=== PATIENT | male | born 2000 | race Two or more races ===

== ENCOUNTER 2021-06-20 08:55 | Outpatient (REF) | payer OTHER, SELFPAY | END 2021-06-20 08:56 | disposition home or self-care (01) | LOC: HO.LAB 08:55 | PROVIDERS: Visit Provider Internal Medicine | DX: Z20.822 Contact with and (suspected) exposure to COVID-19 (principal) | CPT/HCPCS: C9803; U0003; U0005 ==

== ENCOUNTER 2023-03-29 08:41 | Emergency (ER) | payer OTHER, SELFPAY ==
[2023-03-29 08:44] VITALS: BP 98/53; PULSE 115; RESP 18; TEMP 36.7; O2SAT 96; BMI 19.2
[2023-03-29 09:03] VITALS: BP 112/69; PULSE 105; RESP 16; TEMP 37.7; O2SAT 95
[2023-03-29 09:53] LABS: Alanine Aminotransferase 7 U/L (0-40); Albumin Level 4.2 g/dL (3.5-5.0); Alkaline Phosphatase 73 U/L (39-117); Anion Gap 12 (12-20); Aspartate Amino Transferase 17 U/L (5-37); Bilirubin Total 1.3 mg/dL (0.0-1.0); Blood Urea Nitrogen 8 mg/dL (9-16); Calcium 9.6 mg/dL (8.4-10.2); Carbon Dioxide 24 mmol/L (22-29); Chloride 104 mmol/L (96-108); Creatinine Clr Calc Pharmacy 122.3; Estimated Glomerular Filt Rate > 60; Glucose Random 111 mg/dL (60-115); Potassium 3.8 mmol/L (3.3-5.1); Sodium 136 mmol/L (135-145)
[2023-03-29 10:44] VITALS: BP 103/61; PULSE 99; RESP 18; TEMP 37.6; O2SAT 100
--- NOTE | 2023-03-29 11:04 | ED.GENADULT ---
HPI - General Adult General Chief complaint: General Medical Stated complaint: Fever/Sore throat/Lower back pain Time Seen by Provider: 03/29/23 08:58 Source: patient and family Mode of arrival: ambulatory Limitations: no limitations History of Present Illness HPI narrative: 22-year-old male presents with sore throat. Symptoms started yesterday. He has had fever as high as 104. He has generalized myalgias, some slight abdominal discomfort. No nausea vomiting. Symptoms are severe. He has been tolerating oral intake but it has been painful to swallow. He has had no cough or runny nose. Pain that he does experience does not radiate. Patient describes the pain as sharp and burning in sensation. Patient denies any sick contacts. Related Data Previous Rx's Medication Instructions Recorded acetaminophen 500 mg capsule 1,000 mg PO Q6H PRN fever or pain 03/29/23 #20 caps amoxicillin 875 mg tablet 875 mg PO BID #10 tabs 03/29/23 ibuprofen 800 mg tablet 800 mg PO Q8H PRN pain #14 tabs 03/29/23 Allergies Allergy/AdvReac Type Severity Reaction Status Date / Time No Known Allergies Allergy Verified 03/29/23 08:58 Review of Systems Review of Systems: CONSTITUTIONAL: Denies weight loss, +fever and chills. HEENT: Denies changes in vision and hearing. RESPIRATORY: Denies SOB and cough. CV: Denies palpitations no CP. GI: + abdominal pain,- nausea, vomiting and diarrhea. : Denies dysuria and urinary frequency. MSK: Denies myalgia and joint pain. SKIN: Denies rash and pruritus. NEUROLOGICAL: Denies headache and syncope. PSYCHIATRIC: Denies recent changes in mood. Denies anxiety and depression. All other ROS are negative unless in HPI [facility] Social History Social History Alcohol intake: current Alcohol intake frequency: a few times a month Smoked in Last 30 Days: No Use of substances other than those prescribed or required for medical reasons: No Advance Directives: No Advance Directives Information Provided: No Physical Exam ED Vital Signs: Vital Signs - 24 hr 03/29/23 08:44 03/29/23 09:03 03/29/23 10:44 Temperature 98.1 F 99.9 F 99.6 F Pulse Rate 115 H 105 H 99 Respiratory Rate 18 16 18 Blood Pressure 98/53 L 112/69 103/61 Pulse Oximetry 96 95 100 Oxygen Delivery Method Room Air Room Air Room Air BMI result Body Mass Index 19.2 GEN: Well developed, no acute distress, alert, oriented HEENT: Normocephalic, atraumatic, normal external ears, nose appears normal, bilateral tonsillar enlargement, no asymmetry, no uvular deviation or uvulitis, white patchy exudates Eyes: Normal to appearance Neck: Supple, + lymphadenopathy Respiratory: Talks in complete sentences, no respiratory distress, clear to auscultation bilaterally Cardiovascular: Regular rate and rhythm, no murmurs rubs or gallops Abdomen: Soft, nontender, nondistended, no guarding, no rebound Back: No CVA tenderness Extremities: No clubbing cyanosis or edema Neurologic: No focal neurologic deficits, cranial nerves 2-12 intact, strength is 5/5 bilaterally Skin: No rash Course Course Course Narrative: 22-year-old male presents with sore throat, tachycardia, febrile illness as an outpatient, no inpatient documented fever. Patient has tonsillitis/pharyngitis. There is no clinical evidence of peritonsillar abscess. He does have an elevated white blood cell count. Heart rate improved. Blood pressure remains stable. Rapid strep was negative although I still believe this is most likely acute bacterial pharyngitis and amoxicillin be an appropriate treatment. He has received dexamethasone. Feeling significantly improved. He is tolerating oral intake. Will be discharged at this time to return if needed. Medications Administered Discontinued Medications Generic Name Dose Route Start Last Admin Trade Name Freq PRN Reason Stop Dose Admin Dexamethasone Sodium Phosphate 10 mg 03/29/23 09:35 03/29/23 10:43 Dexamethasone Sod Phosphate 10 Mg/Ml Vial IVPUSH 03/29/23 09:36 10 mg ONCE ONE Administration Sodium Chloride 1,769.01 mls @ 1,769.01 mls/hr 03/29/23 08:58 03/29/23 10:42 Ns 30 ml/kg infuse over 1 hr (1769.01 ml) 03/29/23 09:57 1,769.01 mls/hr IV Administration .Q1H STA Ampicillin Sodium/Sulbactam 100 mls @ 200 mls/hr 03/29/23 09:35 03/29/23 10:42 Sodium 3 gm/ Sodium Chloride IV 03/29/23 10:04 200 mls/hr ONCE ONE Administration Ketorolac Tromethamine 15 mg 03/29/23 09:35 03/29/23 10:42 Ketorolac Tromethamine 15 Mg/Ml Vial IVPUSH 03/29/23 09:36 15 mg ONCE ONE Administration Medical Decision Making Medical Decision Making [facility] Narrative: 22-year-old male presents with sore throat with tonsillar enlargement and exudate. He is tachycardic with a low blood pressure but not hypotensive. Differential diagnosis includes strep throat, viral pharyngitis, less likely to be severe sepsis or sepsis. Patient is likely dehydrated, electrolyte abnormality, anemia, viral syndrome Plan: Patient will be given IV fluids, analgesics, steroids, antibiotics. Will check a rapid strep, COVID, additional lab testing to make or chills could most concerned about sepsis or severe sepsis. Admission pending clinical re-evaluation Differential Diagnosis Differential Diagnoses: The differential diagnosis associated with the presentation includes (See above) Acute pharyngitis Admission/Observation Consideration of admission/observation: Escalation of care including admission/observation considered Lab Data [facility] Lab Attestation statement: I reviewed the patient's lab results. 03/29/23 09:27 03/29/23 09:27 Labs: Lab Results 03/29/23 03/29/23 03/29/23 Range/Units 09:26 09:27 09:27 WBC 17.1 H (4.8-10.8) X10*3/uL RBC 5.20 (4.60-5.80) X10*6/uL Hgb 15.1 (14.0-18.0) g/dl Hct 44.5 (42.0-52.0) % MCV 85.6 (80.0-98.0) fL MCH 29.0 (27.0-33.0) pg MCHC 33.9 (31.0-36.0) g/dl RDW 13.1 (11.0-16.0) % Plt Count 198 (160-400) X10*3/uL MPV 11.4 (9.4-12.4) fL Immature Gran % (Auto) 0.8 H (0.0-0.4) % Neut % (Auto) 86.9 H (45-73) % Lymph % (Auto) 5.7 L (20-40) % Woodruff % (Auto) 5.4 (2-11) % Eos % (Auto) 0.8 (0-4) % Baso % (Auto) 0.4 (0-2) % Lymph # (Auto) 1.0 L (1.2-4.9) X10*3/uL Woodruff # (Auto) 0.9 (0.1-1.2) X10*3/uL Eos # (Auto) 0.1 (0.0-0.4) X10*3/uL Baso # (Auto) 0.1 (0.0-0.2) X10*3/uL Abs Immat Gran (auto) 0.13 H (0.00-0.03) X10*3/uL Absolute Neuts (auto) 14.9 H (2.0-8.3) x10*3/uL Absolute Nucleated RBC 0.000 (0.0-0.012) X10*3/uL Nucleated RBC % (auto) 0.0 (0.0-0.2) /100WBC Sodium 136 (135-145) mmol/L Potassium 3.8 (3.3-5.1) mmol/L Chloride 104 (96-108) mmol/L Carbon Dioxide 24 (22-29) mmol/L Anion Gap 12 (12-20) BUN 8 L (9-16) mg/dL Creatinine 0.79 (0.5-1.4) mg/dL Estim Creat Clear Calc 122.3 Estimated GFR > 60 Random Glucose 111 (60-115) mg/dL Lactic Acid 0.9 (0.5-2.0) mmol/L Calcium 9.6 (8.4-10.2) mg/dL Total Bilirubin 1.3 H (0.0-1.0) mg/dL AST 17 (5-37) U/L ALT 7 (0-40) U/L Alkaline Phosphatase 73 (39-117) U/L Total Protein 8.0 (6.5-8.0) g/dL Albumin 4.2 (3.5-5.0) g/dL COVID-19 ([facility]) (Negative) COVID-19 Clin Com Influenza Type A (PREMA) (Negative) Influenza Type B (PREMA) (Negative) Influenza A & B Note S. pyogenes GrpA PREMA (Negative) 03/29/23 03/29/23 03/29/23 Range/Units 09:27 09:27 09:27 WBC (4.8-10.8) X10*3/uL RBC (4.60-5.80) X10*6/uL Hgb (14.0-18.0) g/dl Hct (42.0-52.0) % MCV (80.0-98.0) fL MCH (27.0-33.0) pg MCHC (31.0-36.0) g/dl RDW (11.0-16.0) % Plt Count (160-400) X10*3/uL MPV (9.4-12.4) fL Immature Gran % (Auto) (0.0-0.4) % Neut % (Auto) (45-73) % Lymph % (Auto) (20-40) % Woodruff % (Auto) (2-11) % Eos % (Auto) (0-4) % Baso % (Auto) (0-2) % Lymph # (Auto) (1.2-4.9) X10*3/uL Woodruff # (Auto) (0.1-1.2) X10*3/uL Eos # (Auto) (0.0-0.4) X10*3/uL Baso # (Auto) (0.0-0.2) X10*3/uL Abs Immat Gran (auto) (0.00-0.03) X10*3/uL Absolute Neuts (auto) (2.0-8.3) x10*3/uL Absolute Nucleated RBC (0.0-0.012) X10*3/uL Nucleated RBC % (auto) (0.0-0.2) /100WBC Sodium (135-145) mmol/L Potassium (3.3-5.1) mmol/L Chloride (96-108) mmol/L Carbon Dioxide (22-29) mmol/L Anion Gap (12-20) BUN (9-16) mg/dL Creatinine (0.5-1.4) mg/dL Estim Creat Clear Calc Estimated GFR Random Glucose (60-115) mg/dL Lactic Acid (0.5-2.0) mmol/L Calcium (8.4-10.2) mg/dL Total Bilirubin (0.0-1.0) mg/dL AST (5-37) U/L ALT (0-40) U/L Alkaline Phosphatase (39-117) U/L Total Protein (6.5-8.0) g/dL Albumin (3.5-5.0) g/dL COVID-19 ([facility]) Negative (Negative) COVID-19 Clin Com See Note Influenza Type A ([facility]) Negative (Negative) Influenza Type B (PREMA) Negative (Negative) Influenza A & B Note See Note S. pyogenes GrpA PREMA Negative (Negative) Independent Interpretation I performed an independent interpretation of an: EKG (Sinus tachycardia heart rate [address], [address] elevations depressions, RSR prime noted in V2 but no widened QRS) Tests considered The following testing was considered but not selected: CT soft tissue of the neck, no evidence of peritonsillar abscess on examination Discharge Plan Discharge Clinical Impression: Acute pharyngitis, Tachycardia Patient Disposition: Home, Self-Care Instructions: Pharyngitis (ED), Tachycardia (ED) Prescriptions: New acetaminophen 500 mg capsule 1,000 mg PO Q6H PRN (Reason: fever or pain) Qty: 20 0RF ibuprofen 800 mg tablet 800 mg PO Q8H PRN (Reason: pain) Qty: 14 0RF amoxicillin 875 mg tablet 875 mg PO BID Qty: 10 0RF Stand Alone Forms: Work/School Release
[2023-03-29 12:11] VITALS: BP 114/72; PULSE 107; RESP 13; TEMP 37.2; O2SAT 98
== END 2023-03-29 12:24 | disposition home or self-care (01) ==
PROVIDERS: Emergency Provider Emergency Medicine; PCP Internal Medicine
DX: J02.9 Acute pharyngitis, unspecified (principal); R50.9 Fever, unspecified; M54.50 Low back pain, unspecified; R00.0 Tachycardia, unspecified; Z20.822 Contact with and (suspected) exposure to COVID-19; Z20.828 Contact with and (suspected) exposure to other viral communicable diseases; Z79.899 Other long term (current) drug therapy
CPT/HCPCS: 80053; 83605; 85025; 87040; 87502; 87635; 87651; 93005; 96361; 96374; 96375; 99284; 99285; J0295; J1100; J1885

== ENCOUNTER → 2023-03-29 08:58 | Outpatient (BNV) | payer OTHER, SELFPAY | PROVIDERS: Emergency Provider Emergency Medicine; PCP Internal Medicine; Visit Provider Internal Medicine Cardiovascular Disease | DX: R00.0 Tachycardia, unspecified (principal) | CPT/HCPCS: 93010 ==

== ENCOUNTER 2023-04-01 21:05 | Inpatient (IN) | payer OTHER, SELFPAY ==
--- NOTE | 2023-04-01 | ECG_ITS ---
Test Reason : SEPSIS Blood Pressure : / mmHG Vent. Rate : 108 BPM Atrial Rate : 108 BPM P-R Int : 122 ms QRS Dur : 090 ms QT Int : 300 ms P-R-T Axes : 031 074 076 degrees QTc Int : 402 ms Sinus tachycardia Brugada pattern, type 1 Abnormal ECG When compared with ECG of 29-MAR-2023 09:10, No significant change was found Referred By: Autumn Ramos Electronically Signed By:MATIAS RODRÍGUEZ MD
--- NOTE | ~2023-04-01 | CT_ITS ---
EXAMINATION: CT ANGIOGRAM OF THE CHEST WITH AND WITHOUT CONTRAST (CT PULMONARY ANGIOGRAM FOR PE) CLINICAL INFORMATION: Reason for Exam chest pain COMPARISON: None available. TECHNIQUE: Prior to contrast administration, noncontrast localization images were obtained. Subsequently, multidetector volumetric imaging was performed from the thoracic inlet to below the diaphragms following the administration of 65 mL Omnipaque 350 intravenous contrast. No contrast reaction reported Sagittal, coronal, and MIP oblique sagittal reformatted images were obtained on the CT workstation, uploaded to PACS, and reviewed. This CT examination was performed using dose optimization techniques as appropriate, variously including the following: *Automated exposure control *Adjustment of mA and/or kV according to patient size (this includes techniques or standardized protocols for targeted exams where dose is matched to indication/reason for exam; i.e. extremities or head) *Use of iterative reconstruction technique Total exam dose-length product 191 mGy-cm FINDINGS: QUALITY OF STUDY/CONTRAST BOLUS: Satisfactory. PULMONARY ARTERIES: No pulmonary emboli. THORACIC AORTA: No aneurysm. LUNG: There is relatively mild patchy consolidation in the posterior left lower lobe. Right lung is well-aerated. PLEURA: No pneumothorax. Trace pleural effusions. MEDIASTINUM: The visualized thyroid gland is unremarkable. No discrete adenopathy is seen. Cardiac size is within normal limits; no pericardial effusion. No evidence of septal bowing or right heart strain. CORONARY ARTERY CALCIFICATION: None visualized on this study. CHEST WALL/AXILLA: No axillary or internal mammary lymphadenopathy. OSSEOUS STRUCTURES: No acute or suspicious osseous abnormality. UPPER ABDOMEN: Unremarkable. No reflux of contrast into the hepatic veins to suggest elevated right heart pressures. CT/CT angio chest PE protocol IMPRESSION: 1. No pulmonary embolus identified. 2. Mild patchy consolidation in the posterior left lower lobe, suspicious for pneumonia in the proper clinical setting. 3. Trace pleural effusions. VTE: negative.
--- NOTE | ~2023-04-01 | CT_ITS ---
EXAMINATION: CT SOFT TISSUE NECK WITH CONTRAST CLINICAL INFORMATION: Lemierre syndrome. COMPARISON: None available. TECHNIQUE: Multidetector helical imaging was performed in the axial plane following the administration of 60 mL of Omnipaque 350 intravenous contrast. Multiple axial reformats and coronal/sagittal reconstructions were created the technologist workstation for review. This CT examination was performed using dose optimization techniques as appropriate, variously including the following: *Automated exposure control. *Adjustment of mA and/or kV according to patient size (this includes techniques or standardized protocols for targeted exams where dose is matched to indication/reason for exam; i.e. extremities or head). *Use of iterative reconstruction technique. DLP: 398 mGy-cm FINDINGS: No significant cutaneous thickening. Mild subcutaneous edema within the anterior soft tissues of the neck. No discrete fluid collection within the deep tissues of the neck. The premaxillary, retromaxillary, pterygopalatine fossa, orbital apical, parapharyngeal, and prelaryngeal adipose tissue is maintained. No retropharyngeal collection. Normal appearance of the parotid, submandibular, and thyroid glands. Moderately prominent bilateral level IIa lymph nodes measure up to 1.9 cm. Otherwise, scattered subcentimeter lymph nodes bilaterally, none of which are pathologically enlarged or abnormally enhancing. Moderate heterogeneous enlargement of the adenoid and palatine tonsils bilaterally. Otherwise, normal mucosal contours of the pharynx and larynx without abnormal enhancement. Normal appearance of the hyoid bone, thyroid cartilage, or cartilaginous trachea. The airways remains widely patent. No radiopaque foreign bodies. The atlantooccipital and atlantoaxial articulations remain well aligned. Reversal the normal cervical lordosis centered on C5. Otherwise, there is anatomic alignment of the vertebral bodies and posterior elements. No evidence of acute fracture or subluxation of the cervical spine. The vertebral body heights are maintained. The intervertebral disc spaces are maintained. No evidence of epidural collection. There is no prevertebral soft tissue swelling. Normal opacification of the cervical arterial and venous structures. The visualized portion of the skull base is without significant abnormalities. The visualized paranasal sinuses are clear. The mastoid air cells and middle ear cavities are clear. No demonstrated significant periapical odontogenic disease. CT Upper Chest: The visualized lung apices and upper mediastinum are within normal limits. CT/CT soft tissue neck w IV con IMPRESSION: 1. Moderate heterogeneous enlargement of the adenoids and palatine tonsils bilaterally. Mild subcutaneous edema within the anterior soft tissues of the neck. Mildly prominent bilateral level IIa lymph nodes, likely reactive in nature. 2. No additional focal lesion, collection, pathologically enlarged lymphadenopathy, or abnormal enhancement within the soft tissues of the neck. 3. Normal appearance of the cervical vasculature.
--- NOTE | ~2023-04-01 | CT_ITS ---
EXAMINATION: CT LUMBAR SPINE WITH CONTRAST CLINICAL INFORMATION: Sepsis. Lumbar pain. Discitis. COMPARISON: CT abdomen and pelvis from 04/02/2023. TECHNIQUE: Multidetector helical imaging of the lumbar spine was obtained following the administration of 85 mL of Omnipaque 350 intravenous contrast. Multiple axial reformats and coronal/sagittal reconstructions were created the technologist workstation for review. This CT examination was performed using dose optimization techniques as appropriate, variously including the following: *Automated exposure control. *Adjustment of mA and/or kV according to patient size (this includes techniques or standardized protocols for targeted exams where dose is matched to indication/reason for exam; i.e. extremities or head). *Use of iterative reconstruction technique. DLP: 372 mGy-cm FINDINGS: Minimal degenerative retrolisthesis of L5-S1. Otherwise, normal anatomic alignment. No evidence of acute fracture or traumatic subluxation. The vertebral body heights are maintained. The intervertebral disc spaces are maintained. No suspicious lytic or sclerotic osseous lesions. No abnormal osseous erosions. No evidence of epidural collection. No significant abnormalities of the paraspinal musculature. No abnormal paravertebral collection. Limited evaluation of the intra-abdominal structures without significant abnormalities. The abdominal aorta is of normal contour and caliber. AXIAL SPINAL LEVELS: Normal annular contours. There is no facet joint arthropathy. There is no neural foraminal or spinal canal stenosis. CT/CT lumbar spine w IV con IMPRESSION: 1. No evidence of acute fracture or traumatic subluxation of the lumbar spine. 2. No abnormal osseous erosions. No abnormal paravertebral collection.
--- NOTE | ~2023-04-01 | XR_ITS ---
EXAMINATION: XR CHEST CLINICAL INFORMATION: Pleuritic chest pain COMPARISON: CT angiogram of the chest 04/03/2023 TECHNIQUE: AP upright portable view of the chest was obtained. 0850. FINDINGS: Multiple cardiac leads project over the chest. There is mild retrocardiac streaky opacity consistent with atelectasis and/or pneumonia. No pleural effusion. No significant abnormality is noted involving the heart,, mediastinum, bony thorax or soft tissues. XR/XR chest 1V IMPRESSION: Mild left lower lobe atelectasis and/or pneumonia.
--- NOTE | ~2023-04-01 | CT_ITS ---
EXAMINATION: CT ABDOMEN AND PELVIS WITH CONTRAST CLINICAL INFORMATION: Abdominal pain COMPARISON: None available. TECHNIQUE: Multidetector volumetric images were obtained from the superior aspect of the liver through the pubic symphysis following administration 85 mL of Omnipaque 350 intravenous contrast. Sagittal and coronal reformatted images were obtained on the technologist's workstation. Oral contrast: No This CT examination was performed using dose optimization techniques as appropriate, variously including the following: *Automated exposure control *Adjustment of mA and/or kV according to patient size (this includes techniques or standardized protocols for targeted exams where dose is matched to indication/reason for exam; i.e. extremities or head) *Use of iterative reconstruction technique DLP: 372 mGy-cm FINDINGS: LUNG BASES: The visualized lung bases are unremarkable. LIVER, GALLBLADDER, AND BILIARY TREE: The liver is normal in size, shape, and attenuation. No focal hepatic lesion or biliary ductal dilatation is present. Gallbladder appears partially contracted. PANCREAS: Unremarkable. SPLEEN: Unremarkable. ADRENAL GLANDS: Unremarkable. KIDNEYS AND URETERS: Bilateral nephrograms are symmetric. No hydronephrosis or obstructing calculus identified. BLADDER: Unremarkable. GASTROINTESTINAL TRACT: There is distention of much of the small and large bowel with fluid and gas, without convincing evidence for obstruction, and overall findings are more suggestive of an ileus. Appendix is gas-filled. No free air is seen. Small volume of pelvic free fluid. ABDOMINAL WALL: No significant hernia is appreciated. LYMPH NODES: Normal. VASCULAR: Unremarkable. PELVIC VISCERA: Unremarkable. OSSEOUS STRUCTURES: Unremarkable. CT/CT abdomen pelvis w IV con IMPRESSION: 1. Distention of much of the small and large bowel with fluid and gas, without convincing evidence for obstruction. Overall findings are more suggestive of an ileus. 2. Small volume of pelvic free fluid, which may be reactive.
[2023-04-01 23:07] VITALS: BP 91/52; PULSE 116; RESP 22; TEMP 39.5; O2SAT 98; BMI 19.2
--- NOTE | 2023-04-01 23:25 | ED_ITS ---
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 Related Data Previous Rx's Medication Instructions Recorded acetaminophen 500 mg capsule 1,000 mg PO Q6H PRN fever or pain 03/29/23 #20 caps amoxicillin 875 mg tablet 875 mg PO BID #10 tabs 03/29/23 ibuprofen 800 mg tablet 800 mg PO Q8H PRN pain #14 tabs 03/29/23 Allergies Allergy/AdvReac Type Severity Reaction Status Date / Time No Known Allergies Allergy Verified 03/29/23 08:58 Review of Systems Review of Systems: Pertinent positives and negatives as stated in HPI [facility] Past Medical History Source: nursing notes reviewed Social History Social History Alcohol intake: current Alcohol intake frequency: holidays/special occasions only Smoked in Last 30 Days: No Use of substances other than those prescribed or required for medical reasons: No Advance Directives: No Advance Directives Information Provided: No Physical Exam ED Vital Signs: Vital Signs - 24 hr 04/01/23 23:07 04/01/23 23:53 04/02/23 01:01 Temperature 103.1 F H 103.2 F H 100.8 F H Pulse Rate 116 H 104 H 93 Respiratory Rate 22 H 18 22 H Blood Pressure 91/52 L 120/74 98/47 L Pulse Oximetry 98 99 98 Oxygen Delivery Method Room Air Room Air Room Air 04/02/23 01:18 04/02/23 01:44 04/02/23 01:49 Temperature 98.7 F Pulse Rate 99 88 86 Respiratory Rate 19 19 19 Blood Pressure 107/50 L 103/52 L 99/56 L Pulse Oximetry 97 99 100 Oxygen Delivery Method Room Air Room Air Room Air BMI result Body Mass Index 19.2 VITAL SIGNS: Reviewed. GENERAL: Well developed, well nourished, in no acute distress. HEAD: Normocephalic/atraumatic EYES: PERRLA, EOMI EARS: Ext canals without abnormality, TMs non-bulging and non-erythematous NOSE: Nares patent bilateral OROPHARYNX: There are buccal whitish plaques noted, posterior pharynx with whitish plaques and erythematous without noted tonsillar enlargement/exudates NECK: Supple, no adenopathy LUNGS: Normal breath sounds. No adventitious sounds or accessory muscle use. SpO2<98> CARDIOVASCULAR: Regular rate and rhythm without noted murmurs ABDOMEN: Soft, DIFFUSE TENDERNESS TO PALPATION, non-distended with bowel sounds. MUSCULOSKELETAL: No tenderness, deformities, or effusions noted on gross inspection. EXTREMITIES: No cyanosis, clubbing or edema; PROSTHETIC NOTED TO LEFT LOWER EXTREMITY. SKIN: Inspection of the skin reveals no rashes NEUROLOGIC: Alert and oriented x 4. Strength and sensation to light touch were grossly intact x 4. Medications Administered Discontinued Medications Generic Name Dose Route Start Last Admin Trade Name Freq PRN Reason Stop Dose Admin Acetaminophen 975 mg 04/01/23 23:19 04/01/23 23:33 Acetaminophen 325 Mg Tablet PO 04/01/23 23:20 975 mg ONCE ONE Administration Piperacillin Sod/Tazobactam 50 mls @ 100 mls/hr 04/01/23 23:25 04/02/23 00:25 Sod 3.375 gm/ Sodium Chloride IV 04/01/23 23:54 Infused ONCE ONE Infusion Sodium Chloride 1,769.01 mls @ 1,769.01 mls/hr 04/01/23 23:26 04/02/23 01:44 Ns 30 ml/kg infuse over 1 hr (1769.01 ml) 04/02/23 00:25 Infused IV Infusion .Q1H STA Ibuprofen 400 mg 04/01/23 23:19 04/01/23 23:33 Ibuprofen 400 Mg Tablet PO 04/01/23 23:20 400 mg ONCE ONE Administration Iohexol 85 ml 04/02/23 00:32 04/02/23 00:33 Iohexol 350 Mg/Ml 100 Ml Infus..Btl IV 04/02/23 00:33 85 ml ONCE ONE Administration Medical Decision Making Medical Decision Making [facility] Narrative: 2315: 22-year-old male with history and clinical presentation, DDX: Oral thrush, possible esophagitis Bib[place], sepsis, renal colic, appendicitis, UTI I reviewed all investigations, patient did receive sepsis fluids, antibiotics, as well as Tylenol and ibuprofen. Hematologic studies demonstrate a worsening leukocytosis, and slight bump in bilirubin otherwise chemistries are grossly within normal limits. CT scan negative for acute intra-abdominal findings other than suggestion of ileus with distension of small and large bowel of unknown etiology. Urinalysis is pending and will repeat rapid strep and mono screen. 0226: I discussed the case with the inpatient hospitalist who accepts admission. Differential Diagnosis Differential Diagnoses: The differential diagnosis associated with the presentation includes Please see the discussion above Admission/Observation Consideration of admission/observation: Escalation of care including admi ssion/observation considered Consult Healthcare Provider Management of the patient was discussed with: Hospitalist Please see the discussion above Lab Data [facility] Lab Attestation statement: I reviewed the patient's lab results. Please see the discussion above 04/01/23 23:25 04/01/23 23:25 Labs: Lab Results 04/01/23 04/01/23 04/01/23 Range/Units 23:25 23:25 23:50 WBC 23.4 H (4.8-10.8) X10*3/uL RBC 5.05 (4.60-5.80) X10*6/uL Hgb 14.3 (14.0-18.0) g/dl Hct 42.2 (42.0-52.0) % MCV 83.6 (80.0-98.0) fL MCH 28.3 (27.0-33.0) pg MCHC 33.9 (31.0-36.0) g/dl RDW 13.0 (11.0-16.0) % Plt Count 235 (160-400) X10*3/uL MPV 10.6 (9.4-12.4) fL Absolute Nucleated RBC 0.000 (0.0-0.012) X10*3/uL Nucleated RBC % (auto) 0.0 (0.0-0.2) /100WBC Sodium 133 L (135-145) mmol/L Potassium 3.5 (3.3-5.1) mmol/L Chloride 99 (96-108) mmol/L Carbon Dioxide 25 (22-29) mmol/L Anion Gap 13 (12-20) BUN 12 (9-16) mg/dL Creatinine 1.19 (0.5-1.4) mg/dL Estim Creat Clear Calc 81.2 Estimated GFR > 60 Random Glucose 126 H (60-115) mg/dL Lactic Acid 1.0 (0.5-2.0) mmol/L Calcium 9.1 (8.4-10.2) mg/dL Total Bilirubin 1.2 H (0.0-1.0) mg/dL AST 14 (5-37) U/L ALT 5 (0-40) U/L Alkaline Phosphatase 65 (39-117) U/L Total Protein 8.3 H (6.5-8.0) g/dL Albumin 4.3 (3.5-5.0) g/dL Independent Interpretation I performed an independent interpretation of an: EKG Interpretation: Sinus tachycardia, HR-108, no STEMI, OH/QRS/QTC is within normal limits. Brugada Pattern Type I Radiology Impression Radiologist Impression: No appendicitis, otherwise my interpretation is in agreement with radiology's impression. External Record Review External record reviewed: Outpatient record and Prior outpatient labs Critical Care Time Critical Care Time Critical Care Time: Yes Total Critical Care Time: 30 Attestation: I personally attest to this time spent taking care of the patient. Discharge Plan Discharge Clinical Impression: Severe sepsis, Fever of unknown origin, Oral thrush, Ileus Patient Disposition: Admitted As Inpatient Prescriptions: No Action acetaminophen 500 mg capsule 1,000 mg PO Q6H PRN (Reason: fever or pain) Qty: 20 0RF ibuprofen 800 mg tablet 800 mg PO Q8H PRN (Reason: pain) Qty: 14 0RF amoxicillin 875 mg tablet 875 mg PO BID Qty: 10 0RF
[2023-04-01 23:32] LABS: Hematocrit 42.2 % (42.0-52.0); Hemoglobin 14.3 g/dl (14.0-18.0); Mean Corpuscular HGB Conc 33.9 g/dl (31.0-36.0); Mean Corpuscular Hemoglobin 28.3 pg (27.0-33.0); Mean Corpuscular Volume 83.6 fL (80.0-98.0); Mean Platelet Volume 10.6 fL (9.4-12.4); Platelet Count 235 X10*3/uL (160-400); Red Blood Count 5.05 X10*6/uL (4.60-5.80); White Blood Count 23.4 X10*3/uL (4.8-10.8)
[2023-04-01] MEDS: Ibuprofen 400 MG TABLET PO (23:33)
[2023-04-01] MEDS: Acetaminophen 325 MG TABLET 975 MG PO (23:33)
[2023-04-01] MEDS: 0.9 % Sodium Chloride 1,769.01 ML 1769.01 ML IV (23:38)
[2023-04-01 23:49] LABS: Alanine Aminotransferase 5 U/L (0-40); Albumin Level 4.3 g/dL (3.5-5.0); Alkaline Phosphatase 65 U/L (39-117); Anion Gap 13 (12-20); Aspartate Amino Transferase 14 U/L (5-37); Bilirubin Total 1.2 mg/dL (0.0-1.0); Blood Urea Nitrogen 12 mg/dL (9-16); Calcium 9.1 mg/dL (8.4-10.2); Carbon Dioxide 25 mmol/L (22-29); Chloride 99 mmol/L (96-108); Creatinine Clr Calc Pharmacy 81.2; Estimated Glomerular Filt Rate > 60; Glucose Random 126 mg/dL (60-115); Potassium 3.5 mmol/L (3.3-5.1); Sodium 133 mmol/L (135-145); Total Protein 8.3 g/dL (6.5-8.0)
[2023-04-01] MEDS: Piperacillin Sodium/Tazobactam 3.375 GM in 0.9 % Sodium Chloride 50 ML IV (23:50)
[2023-04-01 23:53] VITALS: BP 120/74; PULSE 104; RESP 18; TEMP 39.6; O2SAT 99
[2023-04-02] VITALS (8 sets, daily range): BP systolic 94–115; BP diastolic 47–70; PULSE 81–106; RESP 18–25; TEMP 36.8–38.2; O2SAT 97–100
--- NOTE | 2023-04-02 | ECG_ITS ---
Test Reason : CHEST PAIN Blood Pressure : / mmHG Vent. Rate : 097 BPM Atrial Rate : 097 BPM P-R Int : 116 ms QRS Dur : 094 ms QT Int : 316 ms P-R-T Axes : 061 076 071 degrees QTc Int : 401 ms Normal sinus rhythm Incomplete right bundle branch block When compared with ECG of 01-APR-2023 23:33, Brugada pattern, type 1 is no longer Present Referred By: Autumn Ramos Electronically Signed By:MATIAS RODRÍGUEZ MD
[2023-04-02] MEDS: iohexoL 350 MG/ML 100 ML INFUS..BTL 85 ML IV (00:33)
--- NOTE | 2023-04-02 01:16 | MHC.EDTECH ---
Vitals taken with an oral temp of 100.8, RN was made aware. Patient voided 400cc of yellow urine in the urinal. Collected a UACC and sent to lab. Call leblanc within reach
[2023-04-02 02:23] LABS: Appearance Urine Clear; Color Urine Yellow; Glucose Urine UA Negative (Negative); Leukocyte Esterase Urine Negative (Negative); Nitrite Urine Negative (Negative); Specific Gravity - Urine 1.025 (1.005-1.025); Urine Blood Negative (Negative); Urine Ketones Negative (Negative); Urine Protein Negative (Neg-Trace)
--- NOTE | 2023-04-02 02:49 | MHC.EDTECH ---
Rounding complete,vitals taken bp is 94/51,RN is made aware. Patient voided 600cc of clear yellow urine in the urinal. Call leblanc within reach
[2023-04-02 03:00] LABS: IDNOW Serial# 6674DD1D; Strep A Nucleic Acid Negative (Negative)
[2023-04-02 03:13] LABS: Monotest Negative (Negative)
[2023-04-02 03:56] LABS: Basophils Absolute Auto 0.1 X10*3/uL (0.0-0.2); Basophils Percent Auto 0.3 % (0-2); Imm Gran Abs Auto 0.29 X10*3/uL (0.00-0.03); Imm Gran Pct Auto 1.3 % (0.0-0.4); Lymphocytes Absolute Auto 1.6 X10*3/uL (1.2-4.9); Lymphocytes Percent Auto 6.8 % (20-40); MANUAL DIFF FLAG SCAN; Monocytes Percent Auto 8.8 % (2-11); Neutrophils Percent Auto 82.8 % (45-73); SCAN SMEAR FLAG 1
[2023-04-02] MEDS: vancomycin HCL 1,500 MG in 0.9 % Sodium Chloride 500 ML 333.33 MG IV (04:05)
[2023-04-02 04:17] LABS: SLIDE REVIEW VERIFIED
[2023-04-02 04:56] LABS: HIV AB/AG Nonreactive (Nonreactive); HIV Num 1 0.07 S/CO (0.00-0.99)
--- NOTE | 2023-04-02 05:53 | PM.IMHP ---
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 Patient's girlfriend at bedside speaks Armenian, patient is Armenian-speaking and the any history is obtained mostly from his girlfriend at bedside. Different states that on Wednesday he came home from work complaining of sore throat and fever. Girlfriend has been treating it with Tylenol and ibuprofen, patient was seen in the ED on Wednesday for persistent fever, strep throat was negative, patient was given amoxicillin sent home. He returns today for persistent fever, weakness, generalized body aches. Patient denies any cough, no sputum production, some nausea no vomiting, no abdominal pain, had diarrhea 2 days prior after starting antibiotics but has not had a bowel movement since yesterday denies any abdominal pain, no urinary symptoms and no lower extremity edema. No skin lesions. On arrival to the ED today patient had a fever of 103.1, slightly tachycardic, Labs are significant for WBC count of 23.4, sodium of133, UA negative, HIV nonreactive, mono screen negative, strep negative abdomen pelvic CT shows possible ileus patient will be admitted for further management Review of Systems Review of Systems: Yes all other systems are reviewed and are negative ON LICENSE OF [facility] Medical History No pertinent past medical history Surgical History No pertinent past surgical history Social History Alcohol intake: current Alcohol intake frequency: holidays/special occasions only Patient Tobacco Use Status: Never used Tobacco Smoked in Last 30 Days: No Use of substances other than those prescribed or required for medical reasons: No Advance Directives: No Advance Directives Information Provided: No Nutrition Risks: No Nutritional Risk Meds Allergies Allergy/AdvReac Type Severity Reaction Status Date / Time No Known Allergies Allergy Verified 03/29/23 08:58 Active Medications: Current Medications Acetaminophen (Acetaminophen 325 Mg Tablet) 650 mg PO Q6H PRN PRN Reason: Pain, Mild (Pain Scale 1-3) Piperacillin Sod/Tazobactam (Sod 3.375 gm/ Sodium Chloride) 50 mls @ 100 mls/hr IV Q6H MARGARITA Ondansetron HCl (Ondansetron Hcl 4 Mg/2 Ml Vial) 4 mg IVPUSH Q8H PRN PRN Reason: Nausea and Vomiting Pharmacy Consult (Consult Rx Vancomycin Dosing) 1 each MISCELLANE DAILY PRN PRN Reason: Consult order Sodium Chloride (0.9 % Sodium Chloride Flush 3 Ml Syringe) 3 ml IVFLUSH QSHIFT MARGARITA Physical Exam Vital Signs and Narrative: Vital Signs: Last Vital Signs Temp 98.3 F 04/02/23 03:50 Pulse 81 04/02/23 03:50 Resp 18 04/02/23 03:50 BP 96/59 L 04/02/23 03:50 Pulse Ox 99 04/02/23 03:50 O2 Del Method Room Air 04/02/23 03:50 BMI result Body Mass Index 19.2 Const: General: cooperative and no acute distress Orientation/consciousness: patient oriented x3 Eyes: General: appearance normal, both eyes and all related structures Resp: Effort & Inspection: normal respiratory effort Auscultation: clear to auscultation bilaterally Cardio: Rate: regular rate Rhythm: regular rhythm GI: Palpation (GI): Soft to palpation Auscultation: normal bowel sounds Skin: General skin exam: no rashes or lesions noted Neuro: General: patient oriented x3 Cognition (Neuro): normal cognition Extrem: Other: left leg prosthesis Results Labs 04/01/23 23:25 04/01/23 23:25 Labs: Laboratory Results - last 24 hr 04/01/23 04/01/23 04/01/23 23:25 23:25 23:50 MCV 83.6 MCH 28.3 MCHC 33.9 RDW 13.0 Plt Count 235 MPV 10.6 Immature Gran % (Auto) 1.3 H Neut % (Auto) 82.8 H Lymph % (Auto) 6.8 L Haakon % (Auto) 8.8 Eos % (Auto) 0.0 Baso % (Auto) 0.3 Lymph # (Auto) 1.6 Haakon # (Auto) 2.0 H Eos # (Auto) 0.0 Baso # (Auto) 0.1 Abs Immat Gran (auto) 0.29 H Absolute Neuts (auto) 19.0 H Absolute Nucleated RBC 0.000 Nucleated RBC % (auto) 0.0 Smear Tech's Comments VERIFIED Anion Gap 13 Estim Creat Clear Calc 81.2 Estimated GFR > 60 Random Glucose 126 H Lactic Acid 1.0 Calcium 9.1 Total Bilirubin 1.2 H AST 14 ALT 5 Alkaline Phosphatase 65 Total Protein 8.3 H Albumin 4.3 Urine Color Urine Appearance Urine pH Ur Specific [place] Urine Protein Urine Glucose (UA) Urine Ketones Urine Blood Urine Nitrite Ur Leukocyte Esterase Monoscreen HIV 1&2 Ab/P24 Ag 4thGn S. pyogenes GrpA PREMA 04/02/23 04/02/23 04/02/23 01:18 02:32 02:32 MCV MCH MCHC RDW Plt Count MPV Immature Gran % (Auto) Neut % (Auto) Lymph % (Auto) Haakon % (Auto) Eos % (Auto) Baso % (Auto) Lymph # (Auto) Haakon # (Auto) Eos # (Auto) Baso # (Auto) Abs Immat Gran (auto) Absolute Neuts (auto) Absolute Nucleated RBC Nucleated RBC % (auto) Smear Tech's Comments Anion Gap Estim Creat Clear Calc Estimated GFR Random Glucose Lactic Acid Calcium Total Bilirubin AST ALT Alkaline Phosphatase Total Protein Albumin Urine Color Yellow Urine Appearance Clear Urine pH 6.0 Ur Specific [place] 1.025 Urine Protein Negative Urine Glucose (UA) Negative Urine Ketones Negative Urine Blood Negative Urine Nitrite Negative Ur Leukocyte Esterase Negative Monoscreen Negative HIV 1&2 Ab/P24 Ag 4thGn S. pyogenes GrpA PREMA Negative 04/02/23 02:32 MCV MCH MCHC RDW Plt Count MPV Immature Gran % (Auto) Neut % (Auto) Lymph % (Auto) [place] % (Auto) Eos % (Auto) Baso % (Auto) Lymph # (Auto) Ha[place]on # (Auto) Eos # (Auto) Baso # (Auto) Abs Immat Gran (auto) Absolute Neuts (auto) Absolute Nucleated RBC Nucleated RBC % (auto) Smear Tech's Comments Anion Gap Estim Creat Clear Calc Estimated GFR Random Glucose Lactic Acid Calcium Total Bilirubin AST ALT Alkaline Phosphatase Total Protein Albumin Urine Color Urine Appearance Urine pH Ur Specific [place] Urine Protein Urine Glucose (UA) Urine Ketones Urine Blood Urine Nitrite Ur Leukocyte Esterase Monoscreen HIV 1&2 Ab/P24 Ag 4thGn Nonreactive S. pyogenes GrpA PREMA Imaging Radiologist's Impressions: Impressions Abdomen/Pelvis CT 04/02/23 00:37 IMPRESSION: 1. Distention of much of the small and large bowel with fluid and gas, without convincing evidence for obstruction. Overall findings are more suggestive of an ileus. 2. Small volume of pelvic free fluid, which may be reactive. 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 UA negative, imaging negative for acute infection - broad-spectrum IV antibiotics - follow cultures - and analgesics p.r.n. - infectious disease consulted # ileus - abdomen is soft, nontender, found - will make patient NPO for bowel rest DVT prophylaxis: Early ambulation Time Spent With Patient Time: Total time managing care of this patient today ____ minutes. Quality Stroke Does the patient have a stroke diagnosis?: No VTE Prior VTE?: No VTE Risk Level:: Medical - low VTE Device Contraindication: Treatment Not Indicated VTE Drug Contraindication: Treatment Not Indicated
[2023-04-02] MEDS: Piperacillin Sodium/Tazobactam 3.375 GM in 0.9 % Sodium Chloride 50 ML IV ×2 (05:56→10:51)
[2023-04-02] MEDS: diphenhydrAMINE HCL 25 MG CAPSULE PO (06:04)
[2023-04-02] MEDS: Acetaminophen 325 MG TABLET 650 MG PO (06:07)
--- NOTE | 2023-04-02 06:17 | PC.NURSE ---
Upon ABX completion, Pt reported some itching to neck area, redness noted all over neck, Dr. Zimmerman notified, new order given as documented.
[2023-04-02 06:46] LABS: Basophils Absolute Auto 0.1 X10*3/uL (0.0-0.2); Basophils Percent Auto 0.3 % (0-2); Hematocrit 42.7 % (42.0-52.0); Hemoglobin 14.2 g/dl (14.0-18.0); Imm Gran Abs Auto 0.63 X10*3/uL (0.00-0.03); Imm Gran Pct Auto 2.7 % (0.0-0.4); Lymphocytes Absolute Auto 1.5 X10*3/uL (1.2-4.9); Lymphocytes Percent Auto 6.3 % (20-40); MANUAL DIFF FLAG SCAN; Mean Corpuscular HGB Conc 33.3 g/dl (31.0-36.0); Mean Corpuscular Hemoglobin 28.3 pg (27.0-33.0); Mean Corpuscular Volume 85.1 fL (80.0-98.0); Mean Platelet Volume 11.1 fL (9.4-12.4); Monocytes Absolute Auto 1.6 X10*3/uL (0.1-1.2); Monocytes Percent Auto 6.8 % (2-11); Neutrophils Absolute Auto 19.4 x10*3/uL (2.0-8.3); Neutrophils Percent Auto 83.9 % (45-73); Platelet Count 206 X10*3/uL (160-400); Red Blood Count 5.02 X10*6/uL (4.60-5.80); Red Cell Distribution Width 13.2 % (11.0-16.0); SCAN SMEAR FLAG 1; White Blood Count 23.2 X10*3/uL (4.8-10.8)
--- NOTE | 2023-04-02 07:00 | CA_ITS ---
Transthoracic Echocardiogram Patient (Last, First, Middle): Edwin Wasserman C Gender: Male Date of : 2000 Age: 22 Procedure Date: 04/02/2023 Procedure Type: Transthoracic Echocardiogram Location: ER Height: 175.26 cm Weight: 58.97 kg BSA: 1.72 m2 Heart Rate: 102 bpm BP: 107 / 67 mmHg Steel Layer: CATAL[place] Referring MD: James Wetzel MD Supervisor Industrial Garment: Javier Hendricks MD Symptoms: sepsis Study Quality: Adequate ECG Rhythm: Tachycardia Conclusions: - Essentially normal study without any clear evidence of vegetations on this study Findings Left Ventricle Normal left ventricular size, thickness, and systolic function. The visually estimated ejection fraction is between 60-65%. Spectral Doppler is indicative of a normal filling pattern. Peak GLS is -17.9%, borderline normal. Right Ventricle Normal right ventricular cavity size and systolic function. Atria Both atria are likely dilated. There is no evidence of interatrial shunt. Aortic Valve Normal aortic valve structure and function. There is no aortic valve stenosis. There is no evidence of a mass on the aortic valve. There is no aortic valve regurgitation. Mitral Valve Normal mitral valve structure and function. There is trace mitral valve regurgitation. There is no mitral valve stenosis. There is no mass noted on the mitral valve. Pulmonic Valve The pulmonic valve is likely normal. There is trace pulmonic valve regurgitation. Tricuspid Valve Normal tricuspid valve structure. There is trace tricuspid valve regurgitation. The right ventricular systolic pressure is normal. The right ventricular systolic pressure is 31 mmHg. Normal right atrial pressure. There is no evidence of pulmonary hypertension. Great Vessels All visible segments of the aorta are normal in size. The pulmonary artery was not well visualized. Venous The inferior vena cava is normal in size and collapses greater than 50% with inspiration. Pericardium/Pleural There is no evidence of pericardial effusion. Prior Study Comparison No prior study available for comparison. Measurements 2D Linear Measurements IVSd: 0.63 0.6-0.9/0.6-1.0 cm LVIDd: 4.73 3.9-5.3/4.2-5.9 cm LVIDd Index: 2.75 2.4-3.2/2.2-3.1 cm/m2 LVIDs: 3.28 2.0-3.6 cm LVPWd: 0.73 0.7-1.1 cm Ao Root: 2.40 2.1-3.5 cm LA Diam: 2.40 2.7-3.8/3.0-4.0 cm LAIDs Index: 1.40 1.5-2.3 cm/m2 LV Mass: 125.08 67-162/88-224 g LV Mass Index: 72.72 43-95/49-115 g/m2 LVOT Diam: 2.00 3.0+(-)1.3 cm 2D Systolic Function EF 4C: 60.00 >55% EF 2C: 63.00 >55% EF BiP: 60.90 >55% Mitral Valve MV Pk E: 0.89 MV Decel Time: 256.00 E'Lateral: 15.90 E'Medial: 13.60 E/E' Med: 6.50 E/E' Lat: 5.60 PHT: 75.00 MVA PHT: 2.93 Decel [place]: 3.46 Aortic Valve AoV Pk Mc: 1.41 AoV Pk Grad: 8.00 PONCHO: 3.02 LVOT LVOT Pk Mc: 1.43 LVOT Mn Mc: 0.94 LVOT VTI: 0.23 LVOT Pk Grad: 8.00 LVOT Mn Grad: 4.00 LVOT Diam: 2.00 LVOT Area: 3.14 Diastolic Function MV Pk E: 0.89 E'Medial: 13.60 E/E' Med: 6.50 E' Laterial: 15.90 E/E' Lat: 5.60 Right Ventricle TAPSE (mm): 19.60 TVS' Cm: 14.10 Tricuspid Valve TR Pk Mc: 2.38 TR Pk Grad: 23.00 RA Press: 8.00 RVSP: 31.00 Great Vessels Aorta Ao Root-2D: 2.40 2.0-3.7 cm Ao Asc: 2.50 2.1-3.4 cm Pulmonary Veins Pulm Vein S/D 0.60 Pulmonary Valve PV Pk Mc: 0.87 Peak PV Grad: 3.00 Updated in Other Vendor System with Status of Final Javier Hendricks MD electronically signed on 04/02/2023 3:16:11 PM with status of Final
[2023-04-02 07:03] LABS: Anion Gap 13 (12-20); Blood Urea Nitrogen 10 mg/dL (9-16); Calcium 8.6 mg/dL (8.4-10.2); Carbon Dioxide 24 mmol/L (22-29); Chloride 106 mmol/L (96-108); Creatinine Clr Calc Pharmacy 100.6; Estimated Glomerular Filt Rate > 60; Glucose Random 110 mg/dL (60-115); Potassium 3.7 mmol/L (3.3-5.1); Sodium 139 mmol/L (135-145)
--- NOTE | 2023-04-02 08:30 | PHA.MEDREC ---
Pharmacy Consult ? Medication Reconciliation Pharmacy has completed the medication reconciliation. Patient confirmed medications. Karen Spann, IldaD
[2023-04-02] MEDS: Lactated Ringers 1,000 ML 100 ML IVCONT ×2 (09:09→22:56)
--- NOTE | 2023-04-02 09:59 | PM.CNGS ---
History of Present Illness Consult details Consult date: 04/02/23 Narrative: Patient presents with approximate 2-3 day history of feeling unwell with fever, constitutional symptoms, and originally some diarrhea/loose stool. He has mild abdominal pain. Complains of sore throat and headache being his main symptoms. He does not recall having such symptoms before. No obvious unusual diet. Unsure of sick contacts. Chart was reviewed patient evaluated. Significant leukocytosis, and fever. CT suggestive of ileus PMFSH Past Medical History Medical History No pertinent past medical history Surgical History Surgical History No pertinent past surgical history Social History Social History Alcohol intake: current Alcohol intake frequency: holidays/special occasions only Patient Tobacco Use Status: Never used Tobacco Smoked in Last 30 Days: No Use of substances other than those prescribed or required for medical reasons: No Advance Directives: No Advance Directives Information Provided: No Nutrition Risks: No Nutritional Risk Meds Allergies Allergy/AdvReac Type Severity Reaction Status Date / Time No Known Allergies Allergy Verified 03/29/23 08:58 Active Medications: Current Medications Acetaminophen (Acetaminophen 325 Mg Tablet) 650 mg PO Q6H PRN PRN Reason: Pain, Mild (Pain Scale 1-3) Last Admin: 04/02/23 06:07 Dose: 650 mg Diphenhydramine HCl (Diphenhydramine Hcl 25 Mg Capsule) 25 mg PO Q6H PRN PRN Reason: itching Last Admin: 04/02/23 06:04 Dose: 25 mg Piperacillin Sod/Tazobactam (Sod 3.375 gm/ Sodium Chloride) 50 mls @ 100 mls/hr IV Q6H MARGARITA Last Infusion: 04/02/23 06:34 Dose: Infused Vancomycin HCl 1,000 mg/ (Sodium Chloride) 270 mls @ 270 mls/hr IV Q12H MARGARITA Lactated Ringer's (Lr) 1,000 mls @ 100 mls/hr IVCONT .Q10H MARGARITA Last Admin: 04/02/23 09:09 Dose: 100 mls/hr Ondansetron HCl (Ondansetron Hcl 4 Mg/2 Ml Vial) 4 mg IVPUSH Q8H PRN PRN Reason: Nausea and Vomiting Pharmacy Consult (Consult Rx Vancomycin Dosing) 1 each MISCELLANE DAILY PRN PRN Reason: Consult order Sodium Chloride (0.9 % Sodium Chloride Flush 3 Ml Syringe) 3 ml IVFLUSH QSHIFT MARGARITA Last Admin: 04/02/23 07:40 Dose: Not Given Physical Exam Vital Signs: Vital Signs: Last Vital Signs Temp 100.7 F H 04/02/23 07:47 Pulse 101 H 04/02/23 07:47 Resp 25 H 04/02/23 07:47 BP 103/57 L 04/02/23 07:47 Pulse Ox 98 04/02/23 07:47 O2 Del Method Room Air 04/02/23 07:47 BMI result Body Mass Index 19.2 GI: Other: Mild periumbilical tenderness. No evidence of any guarding, rebound, or rigidity. Results Labs 04/02/23 06:09 04/02/23 06:09 Labs: Abnormal lab results 04/01/23 04/01/23 04/02/23 Range/Units 23:25 23:25 06:09 WBC 23.4 H 23.2 H (4.8-10.8) X10*3/uL Immature Gran % (Auto) 1.3 H 2.7 H (0.0-0.4) % Neut % (Auto) 82.8 H 83.9 H (45-73) % Lymph % (Auto) 6.8 L 6.3 L (20-40) % [place] # (Auto) 2.0 H 1.6 H (0.1-1.2) X10*3/uL Abs Immat Gran (auto) 0.29 H 0.63 H (0.00-0.03) X10*3/uL Absolute Neuts (auto) 19.0 H 19.4 H (2.0-8.3) x10*3/uL Sodium 133 L (135-145) mmol/L Random Glucose 126 H (60-115) mg/dL Total Bilirubin 1.2 H (0.0-1.0) mg/dL Total Protein 8.3 H (6.5-8.0) g/dL Short CBC 04/01/23 04/02/23 Range/Units 23:25 06:09 WBC 23.4 H 23.2 H (4.8-10.8) X10*3/uL Hgb 14.3 14.2 (14.0-18.0) g/dl Hct 42.2 42.7 (42.0-52.0) % Plt Count 235 206 (160-400) X10*3/uL BMP 04/01/23 04/02/23 23:25 06:09 Sodium 133 L 139 Potassium 3.5 3.7 Chloride 99 106 Carbon Dioxide 25 24 BUN 12 10 Creatinine 1.19 0.96 Calcium 9.1 8.6 Liver Function 04/01/23 Range/Units 23:25 Total Bilirubin 1.2 H (0.0-1.0) mg/dL AST 14 (5-37) U/L ALT 5 (0-40) U/L Alkaline Phosphatase 65 (39-117) U/L Albumin 4.3 (3.5-5.0) g/dL Urine 04/02/23 Range/Units 01:18 Urine Color Yellow Urine Appearance Clear Urine pH 6.0 (5.0-9.0) Ur Specific [place] 1.025 (1.005-1.025) Urine Protein Negative (Neg-Trace) mg/dL Urine Glucose (UA) Negative (Negative) mg/dL All other labs normal. Assessment and Plan (1) Sepsis: Status: Acute (2) Fever of unknown origin: Status: Acute (3) Ileus: Status: Acute Plan Collection of symptoms and signs suggestive of possible viral infection, associated with presumed gastroenteritis. Continue supportive therapy. Further interventions and studies will be directed by the patient's clinical course. Time Spent With Patient Time: Total time managing care of this patient today ____ minutes. Procedures Date of Service Date of Service: 04/02/23
[2023-04-02] MEDS: Ibuprofen 400 MG TABLET PO (10:52)
[2023-04-02] MEDS: Lidocaine 4 % Patch ADH..PATCH 1 PATCH TRANSDERMA (10:52)
--- NOTE | 2023-04-02 12:43 | MHC.CM.PN ---
this typewriter assembly and parts inspector met with patient along with aircraft dispatcher. Patient lives in apartment with significant other- he is behind on rent and concerned about losing his apartment- resources provided. Reports having PCP @ [facility] in [place]. No services prior to hospitalization. HCP education provided. D/C plan- home no services, to transport.
--- NOTE | 2023-04-02 15:31 | P.PNIM_ITS ---
Subjective Subjective Date of Service: 04/03/23 Interval History: soar throat and back pain Review of Systems Patient says the sore throat is somewhat better but having lower back pain. In addition denies any urinary complaints or shortness of breath or cough or phlegm or any abdominal pain. Has headaches . Physical Exam Vital Signs: Vital Signs: Last Vital Signs Temp 100.7 F H 04/02/23 07:47 Pulse 101 H 04/02/23 07:47 Resp 25 H 04/02/23 07:47 BP 103/57 L 04/02/23 07:47 Pulse Ox 98 04/02/23 07:47 O2 Del Method Room Air 04/02/23 07:47 BMI result Body Mass Index 19.2 Appearance: Alert.? Oriented X3.? not in distress.? Eyes: Pupils equal, round and reactive to light.? Sclera nonicteric.? ENT: Pharynx normal.? Moist mucous membranes. throat: neck-no visible swelling ,no erythema cvs: rrr, [id number] , no murmur res: clear to auscultation ,no rhonchii or wheezing abd: no rebound or guarding ,nt, bs present. ext pulses present , no cyanosis . neuro: axo3 , nonfocal. Objective Data Active Medications Acetaminophen (Acetaminophen 325 Mg Tablet) 975 mg PO TID MARGARITA Capsaicin (Capsaicin 0.025% Cream 60 Gm Tube) 1 appl TOPICAL QID PRN; Protocol PRN Reason: Pain, Mild (Pain Scale 1-3) Diphenhydramine HCl (Diphenhydramine Hcl 25 Mg Capsule) 25 mg PO Q6H PRN PRN Reason: itching Last Admin: 04/02/23 06:04 Dose: 25 mg Documented By: MARSHA Vancomycin HCl 1,000 mg/ (Sodium Chloride) 270 mls @ 270 mls/hr IV Q12H MARGARITA Lactated Ringer's (Lr) 1,000 mls @ 100 mls/hr IVCONT .Q10H MARGARITA Last Admin: 04/02/23 09:09 Dose: 100 mls/hr Documented By: TIFFANY Ampicillin Sodium/Sulbactam (Sodium 3 gm/ Sodium Chloride) 100 mls @ 200 mls/hr IV Q6H [facility] Lidocaine (Lidocaine 4 % Patch Adh..Patch) 1 patch TRANSDERMA DAILY [facility]; Protocol Last Admin: 04/02/23 10:52 Dose: 1 patch Documented By: TIFFANY Ondansetron HCl (Ondansetron Hcl 4 Mg/2 Ml Vial) 4 mg IVPUSH Q8H PRN PRN Reason: Nausea and Vomiting Pharmacy Consult (Consult Rx Vancomycin Dosing) 1 each MISCELLANE DAILY PRN PRN Reason: Consult order Sodium Chloride (0.9 % Sodium Chloride Flush 3 Ml Syringe) 3 ml IVFLUSH QSHIFT [facility] Last Admin: 04/02/23 07:40 Dose: Not Given Documented By: TIFFANY Non-Admin Reason: IV Running Labs 04/02/23 06:09 04/02/23 06:09 Labs: Laboratory Results - last 24 hr 04/01/23 04/01/23 04/01/23 23:25 23:25 23:50 MCV 83.6 MCH 28.3 MCHC 33.9 RDW 13.0 Plt Count 235 MPV 10.6 Immature Gran % (Auto) 1.3 H Neut % (Auto) 82.8 H Lymph % (Auto) 6.8 L [place] % (Auto) 8.8 Eos % (Auto) 0.0 Baso % (Auto) 0.3 Lymph # (Auto) 1.6 Swift # (Auto) 2.0 H Eos # (Auto) 0.0 Baso # (Auto) 0.1 Abs Immat Gran (auto) 0.29 H Absolute Neuts (auto) 19.0 H Absolute Nucleated RBC 0.000 Nucleated RBC % (auto) 0.0 Smear Tech's Comments VERIFIED Anion Gap 13 Estim Creat Clear Calc 81.2 Estimated GFR > 60 Random Glucose 126 H Lactic Acid 1.0 Calcium 9.1 Total Bilirubin 1.2 H AST 14 ALT 5 Alkaline Phosphatase 65 Total Protein 8.3 H Albumin 4.3 Urine Color Urine Appearance Urine pH Ur Specific [place] Urine Protein Urine Glucose (UA) Urine Ketones Urine Blood Urine Nitrite Ur Leukocyte Esterase Monoscreen HIV 1&2 Ab/P24 Ag 4thGn S. pyogenes GrpA PREMA 04/02/23 04/02/23 04/02/23 01:18 02:32 02:32 MCV MCH MCHC RDW Plt Count MPV Immature Gran % (Auto) Neut % (Auto) Lymph % (Auto) Swift % (Auto) Eos % (Auto) Baso % (Auto) Lymph # (Auto) Swift # (Auto) Eos # (Auto) Baso # (Auto) Abs Immat Gran (auto) Absolute Neuts (auto) Absolute Nucleated RBC Nucleated RBC % (auto) Smear Tech's Comments Anion Gap Estim Creat Clear Calc Estimated GFR Random Glucose Lactic Acid Calcium Total Bilirubin AST ALT Alkaline Phosphatase Total Protein Albumin Urine Color Yellow Urine Appearance Clear Urine pH 6.0 Ur Specific [place] 1.025 Urine Protein Negative Urine Glucose (UA) Negative Urine Ketones Negative Urine Blood Negative Urine Nitrite Negative Ur Leukocyte Esterase Negative Monoscreen Negative HIV 1&2 Ab/P24 Ag 4thGn S. pyogenes GrpA PREMA Negative 04/02/23 04/02/23 04/02/23 02:32 06:09 06:09 MCV 85.1 MCH 28.3 MCHC 33.3 RDW 13.2 Plt Count 206 MPV 11.1 Immature Gran % (Auto) 2.7 H Neut % (Auto) 83.9 H Lymph % (Auto) 6.3 L Swift % (Auto) 6.8 Eos % (Auto) 0.0 Baso % (Auto) 0.3 Lymph # (Auto) 1.5 Swift # (Auto) 1.6 H Eos # (Auto) 0.0 Baso # (Auto) 0.1 Abs Immat Gran (auto) 0.63 H Absolute Neuts (auto) 19.4 H Absolute Nucleated RBC 0.000 Nucleated RBC % (auto) 0.0 Smear Tech's Comments Anion Gap 13 Estim Creat Clear Calc 100.6 Estimated GFR > 60 Random Glucose 110 Lactic Acid Calcium 8.6 Total Bilirubin AST ALT Alkaline Phosphatase Total Protein Albumin Urine Color Urine Appearance Urine pH Ur Specific [place] Urine Protein Urine Glucose (UA) Urine Ketones Urine Blood Urine Nitrite Ur Leukocyte Esterase Monoscreen HIV 1&2 Ab/P24 Ag 4thGn Nonreactive S. 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 related to throat infection -? febrile, tachycardic with leukocytosis back lambar ct -fine neck ct added -? blood cultures obtained, viral pathogen pending -? will treat with IV antibiotics -? follow cultures ? fever of unknown origin -? source cannot be? found.? UA negative, imaging negative for acute infection -? broad-spectrum IV antibiotics -? follow cultures -? and analgesics p.r.n. -? infectious disease consulted-recomended ct neck,changed antibiotics - vanco+unasyn. ileus-? abdomen is soft, nontender clear liquids,ivf added clear liquid diet seen by surgery-no acute suregrical intervention DVT prophylaxis:? Early ambulation inpatient : Sepsis-? febrile, tachycardic with leukocytosis -concern throat infection-on iv antibiotics Time Spent With Patient Time: Total time managing care of this patient today ____ minutes. Quality Stroke Does the patient have a stroke diagnosis?: No VTE Prior VTE?: No VTE Risk Level:: Medical - low VTE Device Contraindication: Treatment Not Indicated VTE Drug Contraindication: Treatment Not Indicated
[2023-04-02] MEDS: vancomycin HCL 1,000 MG in 0.9 % Sodium Chloride 250 ML 270 MG IV (15:54)
[2023-04-02] MEDS: Acetaminophen 325 MG TABLET 975 MG PO ×2 (15:55→22:44)
[2023-04-02 16:39] LABS: Amphetamine Screen Urine Not Detected (Not Detect); Barbiturates, Urine Not Detected (Not Detect); Benzodiazepines Screen Urine Not Detected (Not Detect); Cannabinoid Screen Urine Not Detected (Not Detect); Cocaine Screen Urine Not Detected (Not Detect); Fentanyl, urine Not Detected (Not Detect); Opiate Screen Urine Not Detected (Not Detect); Phencyclidine Screen Urine Not Detected (Not Detect)
--- NOTE | 2023-04-02 16:42 | P.CNID_ITS ---
History of Present Illness Data of Consult Service Date: 04/02/23 Requesting physician: James Wetzel Primary Care Provider: Alecia Armando MD HPI Reason for consult: sore throat,myalgias He presents with sore throat and muscle aches. Strep throat negative here now. He received po Amoxicillin from ER but not better. Review of Systems Review of Systems: Yes all other systems are reviewed and are negative PMFSH Past Medical History Medical History No pertinent past medical history Family History Family history: reviewed and not pertinent Surgical History Surgical History No pertinent past surgical history Social History Social History Alcohol intake: current Alcohol intake frequency: holidays/special occasions only Patient Tobacco Use Status: Never used Tobacco Smoked in Last 30 Days: No Use of substances other than those prescribed or required for medical reasons: No Advance Directives: No Advance Directives Information Provided: No Nutrition Risks: No Nutritional Risk service: No Meds Allergies Allergy/AdvReac Type Severity Reaction Status Date / Time No Known Allergies Allergy Verified 03/29/23 08:58 Active Medications: Current Medications Acetaminophen (Acetaminophen 325 Mg Tablet) 975 mg PO TID MARGARITA Last Admin: 04/02/23 15:55 Dose: 975 mg Capsaicin (Capsaicin 0.025% Cream 60 Gm Tube) 1 appl TOPICAL QID PRN; Protocol PRN Reason: Pain, Mild (Pain Scale 1-3) Diphenhydramine HCl (Diphenhydramine Hcl 25 Mg Capsule) 25 mg PO Q6H PRN PRN Reason: itching Last Admin: 04/02/23 06:04 Dose: 25 mg Vancomycin HCl 1,000 mg/ (Sodium Chloride) 270 mls @ 270 mls/hr IV Q12H MARGARITA Last Admin: 04/02/23 15:54 Dose: 270 mls/hr Lactated Ringer's (Lr) 1,000 mls @ 100 mls/hr IVCONT .Q10H MARGARITA Last Admin: 04/02/23 09:09 Dose: 100 mls/hr Ampicillin Sodium/Sulbactam (Sodium 3 gm/ Sodium Chloride) 100 mls @ 200 mls/hr IV Q6H [facility] Lidocaine (Lidocaine 4 % Patch Adh..Patch) 1 patch TRANSDERMA DAILY [facility]; Protocol Last Admin: 04/02/23 10:52 Dose: 1 patch Ondansetron HCl (Ondansetron Hcl 4 Mg/2 Ml Vial) 4 mg IVPUSH Q8H PRN PRN Reason: Nausea and Vomiting Pharmacy Consult (Consult Rx Vancomycin Dosing) 1 each MISCELLANE DAILY PRN PRN Reason: Consult order Sodium Chloride (0.9 % Sodium Chloride Flush 3 Ml Syringe) 3 ml IVFLUSH QSHIFT [facility] Last Admin: 04/02/23 16:08 Dose: Not Given Physical Exam Vital Signs: Vital Signs: Last Vital Signs Temp 100.7 F H 04/02/23 07:47 Pulse 101 H 04/02/23 07:47 Resp 25 H 04/02/23 07:47 BP 103/57 L 04/02/23 07:47 Pulse Ox 98 04/02/23 07:47 O2 Del Method Room Air 04/02/23 07:47 BMI result Body Mass Index 19.2 Const: General: cooperative HEENT: Other: throat /cervical LN swelling Face and sinus: Yes normal facial exam Mouth: Normal oral and palatal mucosa present Teeth and gingiva: dentition normal Eyes: General: appearance normal, both eyes and all related structures Pupils: Equal, round and reactive pupils present Resp: Effort & Inspection: normal respiratory effort Cardio: Rate: regular rate Rhythm: regular rhythm GI: Palpation (GI): Soft to palpation and nontender : General: Yes no CVA tenderness Back/Spine/Pelvis: Back: no CVA tenderness Skin: General skin exam: no rashes or lesions noted Neuro: General: moves all extremities Cranial nerves: Yes Equal, round and reactive pupils present Extrem: General: Yes normal to inspection Psych: Appearance: grossly normal Results Labs 04/02/23 06:09 04/02/23 06:09 Labs: Short CBC 04/01/23 04/02/23 Range/Units 23:25 06:09 WBC 23.4 H 23.2 H (4.8-10.8) X10*3/uL Hgb 14.3 14.2 (14.0-18.0) g/dl Hct 42.2 42.7 (42.0-52.0) % Plt Count 235 206 (160-400) X10*3/uL BMP 04/01/23 04/02/23 23:25 06:09 Sodium 133 L 139 Potassium 3.5 3.7 Chloride 99 106 Carbon Dioxide 25 24 BUN 12 10 Creatinine 1.19 0.96 Calcium 9.1 8.6 Liver Function 04/01/23 Range/Units 23:25 Total Bilirubin 1.2 H (0.0-1.0) mg/dL AST 14 (5-37) U/L ALT 5 (0-40) U/L Alkaline Phosphatase 65 (39-117) U/L Albumin 4.3 (3.5-5.0) g/dL Urine 04/02/23 Range/Units 01:18 Urine Color Yellow Urine Appearance Clear Urine pH 6.0 (5.0-9.0) Ur Specific [place] 1.025 (1.005-1.025) Urine Protein Negative (Neg-Trace) mg/dL Urine Glucose (UA) Negative (Negative) mg/dL Assessment and Plan (1) Sepsis: Status: Acute (2) Severe sepsis: Status: Acute Lemierres syndrome,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 Plan Check HIV test. Unasyn and Vancomycin and stop Vancomycin if no MRSA bacteremia. possible po Clindamycin for a week on discharge. Time Spent With Patient Time: Total time managing care of this patient today ____ minutes.
[2023-04-02] MEDS: iohexoL 350 MG/ML 100 ML INFUS..BTL IV (17:13)
[2023-04-02] MEDS: Ampicillin Sodium/Sulbactam Na 3 GM in 0.9 % Sodium Chloride 100 ML IV ×2 (17:30→22:45)
[2023-04-02] MEDS: traMADoL HCL 50 MG TABLET PO (22:09)
[2023-04-03] VITALS (7 sets, daily range): BP systolic 98–130; BP diastolic 60–88; PULSE 67–98; RESP 10–18; TEMP 36.4–37.4; O2SAT 98–99; BMI 19.9
--- NOTE | 2023-04-03 | ECG_ITS ---
Test Reason : REPEAT Blood Pressure : / mmHG Vent. Rate : 069 BPM Atrial Rate : 069 BPM P-R Int : 120 ms QRS Dur : 098 ms QT Int : 356 ms P-R-T Axes : -02 094 086 degrees QTc Int : 381 ms Normal sinus rhythm Rightward axis Incomplete right bundle branch block Nonspecific ST elevation Inferior leads Abnormal ECG When compared with ECG of 03-APR-2023 04:37, No significant change was found Referred By: Ata Zimmerman Electronically Signed By:MATIAS RODRÍGUEZ MD
--- NOTE | 2023-04-03 | ECG_ITS ---
Test Reason : CP Blood Pressure : / mmHG Vent. Rate : 063 BPM Atrial Rate : 063 BPM P-R Int : 122 ms QRS Dur : 100 ms QT Int : 366 ms P-R-T Axes : 000 095 084 degrees QTc Int : 374 ms Normal sinus rhythm Rightward axis Incomplete right bundle branch block Nonspecific ST elevation Inferior leads Abnormal ECG When compared with ECG of 02-APR-2023 21:16, Vent. rate has decreased BY 34 BPM Referred By: Ata Zimmerman Electronically Signed By:MATIAS RODRÍGUEZ MD
[2023-04-03] MEDS: Nitroglycerin 0.4 MG TAB.SUBL SUBLINGUAL (03:40)
[2023-04-03] MEDS: vancomycin HCL 1,000 MG in 0.9 % Sodium Chloride 250 ML 270 MG IV (04:20)
--- NOTE | 2023-04-03 05:02 | MHC.EDTECH ---
EKG taken per RN and repeat EKG done per Hospitalist .
[2023-04-03 05:22] LABS: Troponin-I High Sensitivity 1344.3 ng/L (<3.5-35.0)
--- NOTE | 2023-04-03 05:41 | PM.EVENT ---
Event Note Date of Service: 04/03/23 Event Note: Patient complaining of midsternal pressure-like chest pain. Troponins elevated at 13 44, EKG shows T-wave inversions, patient received morphine, will receive sublingual nitro, spoke to our boat worker, recommended calling STEMI team which was called at [facility], they reviewed the EKG, did not feel that the patient needs to be transferred, and recommended further workup and possible diagnosis of myocarditis. Will obtain CT angiogram at this time, started on heparin drip Time Spent With Patient Time: Total time managing care of this patient today ____ minutes.
[2023-04-03 05:53] LABS: Hemoglobin 12.1 g/dl (14.0-18.0); Mean Corpuscular HGB Conc 32.7 g/dl (31.0-36.0); Mean Corpuscular Hemoglobin 28.4 pg (27.0-33.0); Mean Corpuscular Volume 86.9 fL (80.0-98.0); Mean Platelet Volume 10.8 fL (9.4-12.4); Platelet Count 164 X10*3/uL (160-400); Red Blood Count 4.26 X10*6/uL (4.60-5.80); Red Cell Distribution Width 13.6 % (11.0-16.0); White Blood Count 21.9 X10*3/uL (4.8-10.8)
[2023-04-03 05:59] LABS: INTERNATIONAL NORM RATIO 1.4 (0.9-1.1); Prothrombin Time 15.7 SEC (10.0-13.1)
[2023-04-03 06:06] LABS: Creatinine Clr Calc Pharmacy 144.2; Estimated Glomerular Filt Rate > 60
[2023-04-03] MEDS: iohexoL 350 MG/ML 100 ML INFUS..BTL 65 ML IV (06:23)
[2023-04-03] MEDS: Morphine Sulfate 4 MG/ML CARTRIDGE IVPUSH (06:31)
[2023-04-03] MEDS: Ampicillin Sodium/Sulbactam Na 3 GM in 0.9 % Sodium Chloride 100 ML IV ×4 (06:31→22:26)
--- NOTE | 2023-04-03 07:00 | CA_ITS ---
Transthoracic Echocardiogram Patient (Last, First, Middle): Krupa Mitchell Allison Pineda Gender: Male Date of : 2000 Age: 22 Procedure Date: 04/03/2023 Procedure Type: Transthoracic Echocardiogram Location: ER Height: 175.26 cm Weight: 60.78 kg BSA: 1.74 m2 Heart Rate: bpm BP: 102 / 66 mmHg Clay Roaster: TO Referring MD: Ata Zimmerman MD Symptoms: nstemi Study Quality: Adequate w contrast Conclusions: - 1. Trivial pericardial effusion 2. Normal LV systolic function without significant regional wall motion abnormality Findings Procedure Information Contrast agent, definity, is being given per protocol without apparent complications. Left Ventricle Normal left ventricular size, thickness, and systolic function. The visually estimated ejection fraction is between 55-60%. Diastolic function is normal for age. Pericardium/Pleural There is a trivial circumferential pericardial effusion. Prior Study Comparison Trivial pericardial effusion is present Measurements 2D Linear Measurements IVSd: 0.80 0.6-0.9/0.6-1.0 cm LVIDd: 4.80 3.9-5.3/4.2-5.9 cm LVIDd Index: 2.76 2.4-3.2/2.2-3.1 cm/m2 LVIDs: 3.20 2.0-3.6 cm LVPWd: 0.82 0.7-1.1 cm LV Mass: 159.92 67-162/88-224 g LV Mass Index: 91.91 43-95/49-115 g/m2 LVOT Diam: 2.00 3.0+(-)1.3 cm Mitral Valve MV Pk E: 0.91 MV PK A: 0.27 MV Decel Time: 171.00 E/A: 3.40 E'Lateral: 14.80 E'Medial: 12.90 E/E' Med: 7.10 E/E' Lat: 6.20 PHT: 50.00 MVA PHT: 4.40 Decel Vance: 5.33 LVOT LVOT Pk Mc: 1.03 LVOT Mn Mc: 0.67 LVOT VTI: 0.20 LVOT Pk Grad: 4.00 LVOT Mn Grad: 2.00 LVOT Diam: 2.00 LVOT Area: 3.14 Diastolic Function MV Pk E: 0.91 MV Pk A: 0.27 E/A: 3.40 E'Medial: 12.90 E/E' Med: 7.10 E' Laterial: 14.80 E/E' Lat: 6.20 Tricuspid Valve RA Press: 3.00 Updated in Other Vendor System with Status of Final Javier Hendricks MD electronically signed on 04/03/2023 2:12:48 PM with status of Final
--- NOTE | 2023-04-03 07:22 | PC.NURSE ---
spoke to dr law and pharmacy in regards the heparin drip, pharmacy is still working on changing the orders to the new keeley that was put in by previous shift
[2023-04-03] MEDS: Lactated Ringers 1,000 ML 100 ML IVCONT ×2 (07:31→16:16)
[2023-04-03] MEDS: Heparin Sodium,Porcine 5,000 UNIT/ML VIAL 4900 UNIT IVPUSH (07:44)
[2023-04-03] MEDS: Heparin Sodium,Porcine/1/2NS 25,000 UNIT/250 ML IV.SOLN 8.55 UNIT IVCONT (07:45)
[2023-04-03 07:55] LABS: Hematocrit 34.3 % (42.0-52.0); Hemoglobin 11.7 g/dl (14.0-18.0); Mean Corpuscular HGB Conc 34.1 g/dl (31.0-36.0); Mean Corpuscular Hemoglobin 28.7 pg (27.0-33.0); Mean Corpuscular Volume 84.1 fL (80.0-98.0); Mean Platelet Volume 11.1 fL (9.4-12.4); Platelet Count 195 X10*3/uL (160-400); Red Blood Count 4.08 X10*6/uL (4.60-5.80); Red Cell Distribution Width 13.2 % (11.0-16.0); White Blood Count 20.5 X10*3/uL (4.8-10.8)
[2023-04-03] MEDS: Aspirin Enteric Coated 81 MG TABLET.DR 162 MG PO (07:55)
[2023-04-03] MEDS: Omeprazole 20 MG CAPSULE.DR PO ×2 (07:55→17:09)
[2023-04-03] MEDS: Acetaminophen 325 MG TABLET 975 MG PO ×3 (08:05→22:26)
[2023-04-03] MEDS: 0.9 % Sodium Chloride Flush 3 ML SYRINGE IVFLUSH (08:15)
[2023-04-03 08:17] LABS: PTT Heparin Drip 31.2 SEC (53-77.9)
--- NOTE | 2023-04-03 08:18 | PC.NURSE ---
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 pt reports pain in throat 04/29, pt given tylenol. previous shift documented that there was a lidocaine patch on the right hip, this RN evaluated right hip and there was no patch present. pt reports no pain in right hip currently so lidocaine patch was not given by this RN. normal sinus on tele, vss.
[2023-04-03 08:37] LABS: Troponin-I High Sensitivity 6022.7 ng/L (<3.5-35.0)
[2023-04-03 09:24] LABS: Alanine Aminotransferase 8 U/L (0-40); Albumin Level 3.2 g/dL (3.5-5.0); Alkaline Phosphatase 61 U/L (39-117); Aspartate Amino Transferase 28 U/L (5-37); Bilirubin Direct 0.3 mg/dL (0.0-0.5); Bilirubin Total 0.6 mg/dL (0.0-1.0); Total Protein 6.5 g/dL (6.5-8.0)
[2023-04-03 10:50] LABS: Adenovirus PCR Not Detected (Not Detect.); Bordetella parapertussis PCR Not Detected (Not Detect.); Bordetella pertussis PCR Not Detected (Not Detect.); Chlamydia pneumoniae PCR Not Detected (Not Detect.); Coronavirus 229E PCR Not Detected (Not Detect.); Coronavirus HKU1 PCR Not Detected (Not Detect.); Coronavirus NL63 PCR Not Detected (Not Detect.); Coronavirus OC43 PCR Not Detected (Not Detect.); Human metapneumovirus PCR Not Detected (Not Detect.); Influenza A PCR Not Detected (Not Detect.); Influenza B PCR Not Detected (Not Detect.); Mycoplasma pneumoniae PCR Not Detected (Not Detect.); Parainfluenza 1 PCR Not Detected (Not Detect.); Parainfluenza 2 PCR Not Detected (Not Detect.); Parainfluenza 3 PCR Not Detected (Not Detect.); Parainfluenza 4 PCR Not Detected (Not Detect.); Rhino/Enterovirus PCR Not Detected (Not Detect.); SARS-CoV-2 PCR Not Detected (Not Detect.)
[2023-04-03 10:51] LABS: RSV PCR Not Detected (Not Detect.)
[2023-04-03] MEDS: Metoprolol Tartrate 12.5 MG HALFTAB PO ×2 (10:58→22:26)
--- NOTE | 2023-04-03 11:08 | PC.NURSE ---
pt a&ox3. respirations even and unlabored. skin appropriate for ethnicity. pt reports no pain. provider at bedside.
--- NOTE | 2023-04-03 11:21 | P.CONCA_ITS ---
History of Present Illness History of Present Illness Date of Service: 04/03/23 Requesting physician: Ata Zimmerman Consult reason: chest pain and troponin elevation Chief complaint: sepsis Narrative: Was consulted to see Edwin in cardiology consultation today because of elevated troponins and chest pain and concern for acute myocardial infarction. Patient is a pleasant 22-year-old male, history obtained with help of setter cold rolling machine at bedside. Patient present to the hospital with significant fever, muscle aches, back pain and significant sore throat and inability to swallow. And patient came to the emergency room appeared like he was in septic syndrome although lactic acid was within normal limits. Subsequent workup has been negative. He had some any bacterial infection. A CT scan of the chest shows patchy pneumonia in the left posterior lobe. Last night patient developed some chest pain syndrome. EKG was done which showed nonspecific ST elevation inferiorly and concern for STEMI. In was 1400. STEMI team was called at [facility] although it appears that he did not meet the criteria of STEMI. Subsequent troponin is 6000 this morning. Patient has intermittent episode of chest pain. On further discussion with the help of setter cold rolling machine he said he had chest pains at home but more significant chest pain at this time. His chest pain is resolved with IV morphine. Initial EKG did show a type 1 Brugada pattern when he was febrile with elevated heart rate. Subsequent EKGs, the group got up pattern subsided and has incomplete right bundle-branch block pattern without any acute ST T wave changes. EKG with chest pain shows nonspecific ST-T convex elevation in inferior leads. Echocardiogram done yesterday for source of sepsis will showed return wall motion abnormality. Cardiology consult was sought for further man agement plan. Because of chest pain, EKG changes elevated troponin was appropriately started on IV heparin. Patient says his grandmother had myocardial infarction at age 45. He does not have any other risk factors. 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 He currently uses a prosthesis and he says extremely functional. He bikes to work every day. He denies any other symptoms presently the size this fever and viral syndrome. His viral panel is pending. He continues to have leukocytosis. As per the hospitalist team he looks less toxic today than yesterday. Review of Systems Constitutional: Constitutional: Reports body ache(s), Reports chills, Reports fever(s) and Reports malaise Eyes: Eyes: Reports no additional eye complaints ENT: Reports sore throat Cardiovascular: Cardiovascular: Reports chest pain at rest, Denies lightheadedness, Denies Loss of Consciousness, Denies dyspnea and Denies dyspnea on exertion Respiratory: Respiratory: Reports pain on inspiration, Denies dyspnea and Denies dyspnea on exertion Gastrointestinal: Gastrointestinal: Reports no additional gastrointestinal complaints Genitourinary: Genitourinary: Reports no additional male genitourinary complaints Musculoskeletal: Musculoskeletal: Reports no additional musculoskeletal complaints Integumentary/Breasts: Skin/Breast: Reports system reviewed and no additional complaints, except as docu Neurologic: Reports system reviewed and no additional complaints, except as documented Psychiatric: Psychiatric: Reports no additional psychiatric complaints Endocrine: Endocrine: Reports no additional endocrine complaints PMFSH Past Medical History Medical History No pertinent past medical history Family History Family history: reviewed and not pertinent Surgical History Surgical History No pertinent past surgical history Social History Social History Alcohol intake: current Alcohol intake frequency: holidays/special occasions only Patient Tobacco Use Status: Never used Tobacco Smoked in Last 30 Days: No Use of substances other than those prescribed or required for medical reasons: No Advance Directives: No Advance Directives Information Provided: No Nutrition Risks: No Nutritional Risk service: No Meds Allergies Allergy/AdvReac Type Severity Reaction Status Date / Time No Known Allergies Allergy Verified 03/29/23 08:58 Active Medications: Current Medications Acetaminophen (Acetaminophen 325 Mg Tablet) 975 mg PO TID [facility] Last Admin: 04/03/23 08:05 Dose: 975 mg Capsaicin (Capsaicin 0.025% Cream 60 Gm Tube) 1 appl TOPICAL QID PRN; Protocol PRN Reason: Pain, Mild (Pain Scale 1-3) Diphenhydramine HCl (Diphenhydramine Hcl 25 Mg Capsule) 25 mg PO Q6H PRN PRN Reason: itching Last Admin: 04/02/23 06:04 Dose: 25 mg Heparin Sodium (Porcine) (Heparin Sodium,Porcine 5,000 Unit/Ml Vial) 2,400 unit 40 unit/kg (2400 unit) IVPUSH PROTOCOL BOLUS PRN; Protocol PRN Reason: 40 unit/kg - Heparin Protocol Heparin Sodium (Porcine) (Heparin Sodium,Porcine 5,000 Unit/Ml Vial) 4,900 unit 80 unit/kg (4900 unit) IVPUSH PROTOCOL BOLUS PRN; Protocol PRN Reason: 80 unit/kg - Heparin Protocol Vancomycin HCl 1,000 mg/ (Sodium Chloride) 270 mls @ 270 mls/hr IV Q12H [facility] Last Infusion: 04/03/23 07:30 Dose: Infused Ampicillin Sodium/Sulbactam (Sodium 3 gm/ Sodium Chloride) 100 mls @ 200 mls/hr IV Q6H [facility] Last Admin: 04/03/23 10:55 Dose: 200 mls/hr Lactated Ringer's (Lr) 1,000 mls @ 100 mls/hr IVCONT .Q10H [facility] Last Admin: 04/03/23 07:31 Dose: 100 mls/hr Ibuprofen (Ibuprofen 400 Mg Tablet) 400 mg PO TIDWM PRN PRN Reason: Pain, Mild (Pain Scale 1-3) Lidocaine (Lidocaine 4 % Patch Adh..Patch) 1 patch TRANSDERMA DAILY [facility]; Protocol Last Admin: 04/03/23 08:14 Dose: Not Given Metoprolol Tartrate (Metoprolol Tartrate 12.5 Mg Halftab) 12.5 mg PO BID [facility]; Protocol Last Admin: 04/03/23 10:58 Dose: 12.5 mg Nitroglycerin (Nitroglycerin 0.4 Mg Tab.Subl) 0.4 mg SUBLINGUAL Q5MX3 PRN PRN Reason: chest pain Last Admin: 04/03/23 03:40 Dose: 1 tab Omeprazole (Omeprazole 20 Mg Capsule.Dr) 20 mg PO BID@0630,1630 [facility] Last Admin: 04/03/23 07:55 Dose: 20 mg Ondansetron HCl (Ondansetron Hcl 4 Mg/2 Ml Vial) 4 mg IVPUSH Q8H PRN PRN Reason: Nausea and Vomiting Pharmacy Consult (Consult Rx Vancomycin Dosing) 1 each MISCELLANE DAILY PRN PRN Reason: Consult order Sodium Chloride (0.9 % Sodium Chloride Flush 3 Ml Syringe) 3 ml IVFLUSH QSHIFT [facility] Last Admin: 04/03/23 08:15 Dose: 3 ml Physical Exam Vital Signs: Vital Signs: Last Vital Signs Temp 98.2 F 07/15/23 07:27 Pulse 77 04/03/23 10:54 Resp 16 04/03/23 07:27 BP 104/65 04/03/23 10:54 Pulse Ox 98 04/03/23 07:27 O2 Del Method Room Air 04/03/23 07:27 BMI result Body Mass Index 19.9 Const: General: cooperative, comfortable, no acute distress, well developed, alert and awake Nutritional Appearance: well nourished and thin Orientation/consciousness: patient oriented x3 Limitations: no limitations HEENT: Head: Yes normocephalic and Yes atraumatic Neck: Neck: Yes trachea midline, Yes supple and Yes no JVD Resp: Effort & Inspection: normal respiratory effort Auscultation: clear to auscultation bilaterally Cardio: Jugular venous distension: no JVD Palpation: normal PMI Rate: regular rate Rhythm: regular rhythm Heart sounds: S1 normal heart sound present, S2 normal heart sound present, no click, no gallops, no murmurs and no rubs GI: Auscultation: normal bowel sounds Skin: General skin exam: no rashes or lesions noted Neuro: General: patient oriented x3 and no focal motor deficits Extrem: General: Yes no clubbing, cyanosis or edema Objective Labs and Meds 04/03/23 07:29 04/03/23 05:44 Lab results: Laboratory Results - last 24 hr 04/02/23 04/02/23 04/03/23 16:02 16:23 04:49 WBC RBC Hgb Hct MCV MCH MCHC RDW Plt Count MPV Absolute Nucleated RBC Nucleated RBC % (auto) PT INR aPTT Heparin Protocol Creatinine Estim Creat Clear Calc Estimated GFR Total Bilirubin Direct Bilirubin AST ALT Alkaline Phosphatase Total Creatine Kinase Troponin I High Sens 1344.3 H* Total Protein Albumin Urine Opiates Screen Not Detected Urine Fentanyl Screen Not Detected Ur Barbiturates Screen Not Detected Ur Phencyclidine Scrn Not Detected Ur Amphetamines Screen Not Detected U Benzodiazepines Scrn Not Detected Urine Cocaine Screen Not Detected U Marijuana (THC) Screen Not Detected Respiratory Panel Obrien Cancelled Adenovirus (Rapid PCR) Cancelled B.pert (TEM-PCR) Cancelled B.parapertussis DNA PCR Cancelled C. pneumoniae DNA (PCR) Cancelled Coronavirus OC43 (PCR) Cancelled Coronavirus HKU1 (PCR) Cancelled Coronavirus 229E (PCR) Cancelled Coronavirus NL63 (PCR) Cancelled Human Metapneumovir PCR Cancelled Influenza A (RT-PCR) Cancelled Influenza B (RT-PCR) Cancelled M. pneumoniae (PCR) Cancelled Parainfluenza 1 (PCR) Cancelled Parainfluenza 2 (PCR) Cancelled Parainfluenza 3 (PCR) Cancelled Parainfluenza 4 (PCR) Cancelled RSV (PCR) Cancelled Entero/Rhino (PCR) Cancelled SARS-CoV-2 RNA (RT-PCR) Cancelled 04/03/23 04/03/23 04/03/23 05:44 05:44 05:44 WBC 21.9 H RBC 4.26 L Hgb 12.1 L Hct 37.0 L MCV 86.9 MCH 28.4 MCHC 32.7 RDW 13.6 Plt Count 164 MPV 10.8 Absolute Nucleated RBC 0.000 Nucleated RBC % (auto) 0.0 PT 15.7 H INR 1.4 H aPTT Heparin Protocol 29.0 L Creatinine 0.67 Estim Creat Clear Calc 144.2 Estimated GFR > 60 Total Bilirubin 0.6 Direct Bilirubin 0.3 AST 28 ALT 8 Alkaline Phosphatase 61 Total Creatine Kinase 147 Troponin I High Sens Total Protein 6.5 Albumin 3.2 L Urine Opiates Screen Urine Fentanyl Screen Ur Barbiturates Screen Ur Phencyclidine Scrn Ur Amphetamines Screen U Benzodiazepines Scrn Urine Cocaine Screen U Marijuana (THC) Screen Respiratory Panel Obrien Adenovirus (Rapid PCR) B.pert (TEM-PCR) B.parapertussis DNA PCR C. pneumoniae DNA (PCR) Coronavirus OC43 (PCR) Coronavirus HKU1 (PCR) Coronavirus 229E (PCR) Coronavirus NL63 (PCR) Human Metapneumovir PCR Influenza A (RT-PCR) Influenza B (RT-PCR) M. pneumoniae (PCR) Parainfluenza 1 (PCR) Parainfluenza 2 (PCR) Parainfluenza 3 (PCR) Parainfluenza 4 (PCR) RSV (PCR) Entero/Rhino (PCR) SARS-CoV-2 RNA (RT-PCR) 04/03/23 04/03/23 04/03/23 07:29 07:29 07:41 WBC 20.5 H RBC 4.08 L Hgb 11.7 L Hct 34.3 L MCV 84.1 MCH 28.7 MCHC 34.1 RDW 13.2 Plt Count 195 MPV 11.1 Absolute Nucleated RBC 0.000 Nucleated RBC % (auto) 0.0 PT INR aPTT Heparin Protocol 31.2 L Creatinine Estim Creat Clear Calc Estimated GFR Total Bilirubin Direct Bilirubin AST ALT Alkaline Phosphatase Total Creatine Kinase Troponin I High Sens 6022.7 H* D Total Protein Albumin Urine Opiates Screen Urine Fentanyl Screen Ur Barbiturates Screen Ur Phencyclidine Scrn Ur Amphetamines Screen U Benzodiazepines Scrn Urine Cocaine Screen U Marijuana (THC) Screen Respiratory Panel Obrien Adenovirus (Rapid PCR) B.pert (TEM-PCR) B.parapertussis DNA PCR C. pneumoniae DNA (PCR) Coronavirus OC43 (PCR) Coronavirus HKU1 (PCR) Coronavirus 229E (PCR) Coronavirus NL63 (PCR) Human Metapneumovir PCR Influenza A (RT-PCR) Influenza B (RT-PCR) M. pneumoniae (PCR) Parainfluenza 1 (PCR) Parainfluenza 2 (PCR) Parainfluenza 3 (PCR) Parainfluenza 4 (PCR) RSV (PCR) Entero/Rhino (PCR) SARS-CoV-2 RNA (RT-PCR) 04/03/23 09:07 WBC RBC Hgb Hct MCV MCH MCHC RDW Plt Count MPV Absolute Nucleated RBC Nucleated RBC % (auto) PT INR aPTT Heparin Protocol Creatinine Estim Creat Clear Calc Estimated GFR Total Bilirubin Direct Bilirubin AST ALT Alkaline Phosphatase Total Creatine Kinase Troponin I High Sens Total Protein Albumin Urine Opiates Screen Urine Fentanyl Screen Ur Barbiturates Screen Ur Phencyclidine Scrn Ur Amphetamines Screen U Benzodiazepines Scrn Urine Cocaine Screen U Marijuana (THC) Screen Respiratory Panel Obrien See Note Adenovirus (Rapid PCR) Not Detected B.pert (TEM-PCR) Not Detected B.parapertussis DNA PCR Not Detected C. pneumoniae DNA (PCR) Not Detected Coronavirus OC43 (PCR) Not Detected Coronavirus HKU1 (PCR) Not Detected Coronavirus 229E (PCR) Not Detected Coronavirus NL63 (PCR) Not Detected Human Metapneumovir PCR Not Detected Influenza A (RT-PCR) Not Detected Influenza B (RT-PCR) Not Detected M. pneumoniae (PCR) Not Detected Parainfluenza 1 (PCR) Not Detected Parainfluenza 2 (PCR) Not Detected Parainfluenza 3 (PCR) Not Detected Parainfluenza 4 (PCR) Not Detected RSV (PCR) Not Detected Entero/Rhino (PCR) Not Detected SARS-CoV-2 RNA (RT-PCR) Not Detected EKG on March 29 showed normal sinus rhythm with incomplete right bundle-branch block with no clear Brugada pattern EKG on April 01 showed sinus tachycardia with Brugada type EKG on April 02 showed normal sinus rhythm with incomplete right bundle-branch block similar to EKG on March 29 without any regard a pattern EKG this morning with chest pain shows normal sinus rhythm with nonspecific convex ST-elevation inferior leads Imaging Radiologist's impression: Impressions Lumbar Spine CT 04/02/23 13:52 IMPRESSION: 1. No evidence of acute fracture or traumatic subluxation of the lumbar spine. 2. No abnormal osseous erosions. No abnormal paravertebral collection. Soft Tissue Neck CT 04/02/23 17:12 IMPRESSION: 1. Moderate heterogeneous enlargement of the adenoids and palatine tonsils bilaterally. Mild subcutaneous edema within the anterior soft tissues of the neck. Mildly prominent bilateral level IIa lymph nodes, likely reactive in nature. 2. No additional focal lesion, collection, pathologically enlarged lymphadenopathy, or abnormal enhancement within the soft tissues of the neck. 3. Normal appearance of the cervical vasculature. Chest CTA 04/03/23 06:20 IMPRESSION: 1. No pulmonary embolus identified. 2. Mild patchy consolidation in the posterior left lower lobe, suspicious for pneumonia in the proper clinical setting. 3. Trace pleural effusions. VTE: negative. Assessment and Plan (1) Myocarditis: Status: Acute Patient's overall presentation with sepsis appears to be most likely viral sepsis with chest pain and elevated troponins an EKG changes suggest echocardiogram yesterday when he did not have chest pain which showed normal LV systolic function. Appears mildly toxic on clinical exam but without any significant ventricular arrhythmias or AV block and signs of heart failure. Will repeat another echocardiogram today to evaluate for LV function and/or regional wall motion abnormality. If he has significant LV systolic dysfunction will require transfer to a tertiary care center. Meanwhile otherwise would treat him conservatively. Continue treat his sepsis. Continue pain control with nonsteroidals. I do not think this represents acute myocardial ischemia related to coronary artery disease or ischemic heart disease and there is no clear role for heparin or aspirin or statin therapy. I would treat him with low-dose beta-florence to reduce risk of ventricular arrhythmias. Continue fever control. He does have rule out are type 1 syndrome when he has sinus tachycardia hypermetabolic state. This will also benefit from beta-florence therapy. There is no clear family history of sudden cardiac that although his grandmother at age 45 but appears to be acute myocardial infarction. This is unclear. Will follow with the patient. Time Spent With Patient Time: Total time managing care of this patient today ____ minutes. Procedures Date of Service Date of Service: 04/03/23
--- NOTE | 2023-04-03 12:01 | PC.NURSE ---
Addendum entered by Adelita Sosa 04/03/23 12:24: pt resting comfortably at this time, denies throat and chest pain at this time, ns on the monitor and vs stable Original Note: heparin drip stopped per dr law
--- NOTE | 2023-04-03 13:05 | P.PNIM_ITS ---
Subjective Subjective Date of Service: 04/03/23 Interval History: soar throat and back pain Review of Systems Information taken with the help of is certified supervisor volunteer services- Throat pain and back pain seems to be improving Patient says that he had chest pain overnight currently denies any chest pain or shortness of breath or abdominal pain or fever Physical Exam Vital Signs: Vital Signs: Last Vital Signs Temp 98.2 F 04/03/23 07:27 Pulse 77 04/03/23 10:54 Resp 16 04/03/23 07:27 BP 104/65 04/03/23 10:54 Pulse Ox 98 04/03/23 07:27 O2 Del Method Room Air 04/03/23 07:27 BMI result Body Mass Index 19.9 Appearance: Alert.? Oriented X3.? not in distress.? Eyes: Pupils equal, round and reactive to light.? Sclera nonicteric.? ENT: Pharynx normal.? Moist mucous membranes. throat:has mild tonsillar ,throat erythema,swelin neck-no visible? swelling ,no? erythema cvs: rrr, [id number] , no murmur res: clear to auscultation ,no rhonchii or wheezing abd: no rebound or guarding ,nt, bs present. ext pulses present , no cyanosis . neuro: axo3 , nonfocal. Objective Data Active Medications Acetaminophen (Acetaminophen 325 Mg Tablet) 975 mg PO TID [facility] Last Admin: 04/03/23 08:05 Dose: 975 mg Documented By: DYLON Capsaicin (Capsaicin 0.025% Cream 60 Gm Tube) 1 appl TOPICAL QID PRN; Protocol PRN Reason: Pain, Mild (Pain Scale 1-3) Diphenhydramine HCl (Diphenhydramine Hcl 25 Mg Capsule) 25 mg PO Q6H PRN PRN Reason: itching Last Admin: 04/02/23 06:04 Dose: 25 mg Documented By: MARSHA Vancomycin HCl 1,000 mg/ (Sodium Chloride) 270 mls @ 270 mls/hr IV Q12H [facility] Last Infusion: 04/03/23 07:30 Dose: 0 mls/hr Documented By: DYLON Ampicillin Sodium/Sulbactam (Sodium 3 gm/ Sodium Chloride) 100 mls @ 200 mls/hr IV Q6H [facility] Last Infusion: 04/03/23 11:36 Dose: 0 mls/hr Documented By: BOOGIE Lactated Ringer's (Lr) 1,000 mls @ 100 mls/hr IVCONT .Q10H [facility] Last Admin: 04/03/23 07:31 Dose: 100 mls/hr Documented By: DYLON Ibuprofen (Ibuprofen 400 Mg Tablet) 400 mg PO TIDWM PRN PRN Reason: Pain, Mild (Pain Scale 1-3) Lidocaine (Lidocaine 4 % Patch Adh..Patch) 1 patch TRANSDERMA DAILY [facility]; Protocol Last Admin: 04/03/23 08:14 Dose: Not Given Documented By: DYLON Non-Admin Reason: denies pain Metoprolol Tartrate (Metoprolol Tartrate 12.5 Mg Halftab) 12.5 mg PO BID [facility]; Protocol Last Admin: 04/03/23 10:58 Dose: 12.5 mg Documented By: DYLON Nitroglycerin (Nitroglycerin 0.4 Mg Tab.Subl) 0.4 mg SUBLINGUAL Q5MX3 PRN PRN Reason: chest pain Last Admin: 04/03/23 03:40 Dose: 1 tab Documented By: BRIAN Omeprazole (Omeprazole 20 Mg Capsule.Dr) 20 mg PO BID@0630,1630 [facility] Last Admin: 04/03/23 07:55 Dose: 20 mg Documented By: DYLON Ondansetron HCl (Ondansetron Hcl 4 Mg/2 Ml Vial) 4 mg IVPUSH Q8H PRN PRN Reason: Nausea and Vomiting Pharmacy Consult (Consult Rx Vancomycin Dosing) 1 each MISCELLANE DAILY PRN PRN Reason: Consult order Sodium Chloride (0.9 % Sodium Chloride Flush 3 Ml Syringe) 3 ml IVFLUSH QSHIFT [facility] Last Admin: 04/03/23 08:15 Dose: 3 ml Documented By: DYLON Labs 04/03/23 07:29 04/03/23 05:44 Labs: Laboratory Results - last 24 hr 04/02/23 04/02/23 04/03/23 16:02 16:23 04:49 MCV MCH MCHC RDW Plt Count MPV Absolute Nucleated RBC Nucleated RBC % (auto) PT INR aPTT Heparin Protocol Estim Creat Clear Calc Estimated GFR Total Bilirubin Direct Bilirubin AST ALT Alkaline Phosphatase Total Creatine Kinase Troponin I High Sens 1344.3 H* Total Protein Albumin Urine Opiates Screen Not Detected Urine Fentanyl Screen Not Detected Ur Barbiturates Screen Not Detected Ur Phencyclidine Scrn Not Detected Ur Amphetamines Screen Not Detected U Benzodiazepines Scrn Not Detected Urine Cocaine Screen Not Detected U Marijuana (THC) Screen Not Detected Respiratory Panel Obrien Cancelled Adenovirus (Rapid PCR) Cancelled B.pert (TEM-PCR) Cancelled B.parapertussis DNA PCR Cancelled C. pneumoniae DNA (PCR) Cancelled Coronavirus OC43 (PCR) Cancelled Coronavirus HKU1 (PCR) Cancelled Coronavirus 229E (PCR) Cancelled Coronavirus NL63 (PCR) Cancelled Human Metapneumovir PCR Cancelled Influenza A (RT-PCR) Cancelled Influenza B (RT-PCR) Cancelled M. pneumoniae (PCR) Cancelled Parainfluenza 1 (PCR) Cancelled Parainfluenza 2 (PCR) Cancelled Parainfluenza 3 (PCR) Cancelled Parainfluenza 4 (PCR) Cancelled RSV (PCR) Cancelled Entero/Rhino (PCR) Cancelled SARS-CoV-2 RNA (RT-PCR) Cancelled 04/03/23 04/03/23 04/03/23 05:44 05:44 05:44 MCV 86.9 MCH 28.4 MCHC 32.7 RDW 13.6 Plt Count 164 MPV 10.8 Absolute Nucleated RBC 0.000 Nucleated RBC % (auto) 0.0 PT 15.7 H INR 1.4 H aPTT Heparin Protocol 29.0 L Estim Creat Clear Calc 144.2 Estimated GFR > 60 Total Bilirubin 0.6 Direct Bilirubin 0.3 AST 28 ALT 8 Alkaline Phosphatase 61 Total Creatine Kinase 147 Troponin I High Sens Total Protein 6.5 Albumin 3.2 L Urine Opiates Screen Urine Fentanyl Screen Ur Barbiturates Screen Ur Phencyclidine Scrn Ur Amphetamines Screen U Benzodiazepines Scrn Urine Cocaine Screen U Marijuana (THC) Screen Respiratory Panel Obrien Adenovirus (Rapid PCR) B.pert (TEM-PCR) B.parapertussis DNA PCR C. pneumoniae DNA (PCR) Coronavirus OC43 (PCR) Coronavirus HKU1 (PCR) Coronavirus 229E (PCR) Coronavirus NL63 (PCR) Human Metapneumovir PCR Influenza A (RT-PCR) Influenza B (RT-PCR) M. pneumoniae (PCR) Parainfluenza 1 (PCR) Parainfluenza 2 (PCR) Parainfluenza 3 (PCR) Parainfluenza 4 (PCR) RSV (PCR) Entero/Rhino (PCR) SARS-CoV-2 RNA (RT-PCR) 04/03/23 04/03/23 04/03/23 07:29 07:29 07:41 MCV 84.1 MCH 28.7 MCHC 34.1 RDW 13.2 Plt Count 195 MPV 11.1 Absolute Nucleated RBC 0.000 Nucleated RBC % (auto) 0.0 PT INR aPTT Heparin Protocol 31.2 L Estim Creat Clear Calc Estimated GFR Total Bilirubin Direct Bilirubin AST ALT Alkaline Phosphatase Total Creatine Kinase Troponin I High Sens 6022.7 H* D Total Protein Albumin Urine Opiates Screen Urine Fentanyl Screen Ur Barbiturates Screen Ur Phencyclidine Scrn Ur Amphetamines Screen U Benzodiazepines Scrn Urine Cocaine Screen U Marijuana (THC) Screen Respiratory Panel Obrien Adenovirus (Rapid PCR) B.pert (TEM-PCR) B.parapertussis DNA PCR C. pneumoniae DNA (PCR) Coronavirus OC43 (PCR) Coronavirus HKU1 (PCR) Coronavirus 229E (PCR) Coronavirus NL63 (PCR) Human Metapneumovir PCR Influenza A (RT-PCR) Influenza B (RT-PCR) M. pneumoniae (PCR) Parainfluenza 1 (PCR) Parainfluenza 2 (PCR) Parainfluenza 3 (PCR) Parainfluenza 4 (PCR) RSV (PCR) Entero/Rhino (PCR) SARS-CoV-2 RNA (RT-PCR) 04/03/23 04/03/23 09:07 10:57 MCV MCH MCHC RDW Plt Count MPV Absolute Nucleated RBC Nucleated RBC % (auto) PT INR aPTT Heparin Protocol Estim Creat Clear Calc Estimated GFR Total Bilirubin Direct Bilirubin AST ALT Alkaline Phosphatase Total Creatine Kinase Troponin I High Sens 5197.4 H* Total Protein Albumin Urine Opiates Screen Urine Fentanyl Screen Ur Barbiturates Screen Ur Phencyclidine Scrn Ur Amphetamines Screen U Benzodiazepines Scrn Urine Cocaine Screen U Marijuana (THC) Screen Respiratory Panel Obrien See Note Adenovirus (Rapid PCR) Not Detected B.pert (TEM-PCR) Not Detected B.parapertussis DNA PCR Not Detected C. pneumoniae DNA (PCR) Not Detected Coronavirus OC43 (PCR) Not Detected Coronavirus HKU1 (PCR) Not Detected Coronavirus 229E (PCR) Not Detected Coronavirus NL63 (PCR) Not Detected Human Metapneumovir PCR Not Detected Influenza A (RT-PCR) Not Detected Influenza B (RT-PCR) Not Detected M. pneumoniae (PCR) Not Detected Parainfluenza 1 (PCR) Not Detected Parainfluenza 2 (PCR) Not Detected Parainfluenza 3 (PCR) Not Detected Parainfluenza 4 (PCR) Not Detected RSV (PCR) Not Detected Entero/Rhino (PCR) Not Detected SARS-CoV-2 RNA (RT-PCR) Not Detected Microbiology Microbiology Results: Microbiology 04/01/23 23:50 Blood Culture - Preliminary Blood - Venous No growth after 24 hours. 04/01/23 23:25 Blood Culture - Preliminary Blood - Venous No growth after 24 hours. 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 related to throat infection -? febrile, tachycardic with leukocytosis back lambar ct -fine cta:possible pneumonia , no P.E. neck ct -Moderate heterogeneous enlargement of the adenoids and palatine tonsils bilaterally. Mild subcutaneous edema within the anterior soft tissues of the neck. Mildly prominent bilateral level IIa lymph nodes, likely reactive in nature. HIV negative, mono screen negative, RES panel negative, throat culture pending, Anaplasma, babesia ,lyme ,tick serology pending blood cultures neg @24hrs continue IV antibiotics,? follow cultures ? fever of unknown origin -? source cannot be? found.? UA negative, imaging negative for acute infection -? broad-spectrum IV antibiotics -? follow cultures -? and analgesics p.r.n. -? infectious disease consulted-recomended ct neck,changed antibiotics - vanco+unasyn. ?ileus-? abdomen is soft, nontender passing bm's this morning clear liquids,ivf added clear liquid diet seen by surgery-no acute suregrical intervention elevated troponins/chest pain: Currently denies any chest pain, echo yesterday was fine Elevated troponin plateauing The repeat echo today, added low-dose metoprolol EKGs reviewed. Currently patient denies any chest pain Seen by Cardiology-repeat echo: Lv function seems fine Possibly have? myocarditis- added nsaids, colchicine. dvt : scd inpatient need:sepsis sec ?throat infection/pneumonia -need IV antibiotics, blood culture pending, tick serologies pending. Also possibly has myocarditis: Continue NSAIDs and colchicine and cardiology follow-up. Time Spent With Patient Time: Total time managing care of this patient today ____ minutes. Quality Stroke Does the patient have a stroke diagnosis?: No VTE Prior VTE?: No VTE Risk Level:: Medical - low VTE Device Contraindication: Treatment Not Indicated VTE Drug Contraindication: Treatment Not Indicated
[2023-04-03 14:11] LABS: INTERNATIONAL NORM RATIO 1.2 (0.9-1.1); Prothrombin Time 13.9 SEC (10.0-13.1)
[2023-04-03 14:16] LABS: Vancomycin Random 3.5 mcg/mL (15-20)
[2023-04-03 14:40] LABS: C Reactive Protein 19.87 mg/dL (< or = 0.50)
[2023-04-03 15:04] LABS: PTT Heparin Drip 31.3 SEC (53-77.9)
--- NOTE | 2023-04-03 15:08 | PC.NURSE ---
report given to imc rn
[2023-04-03 15:16] LABS: Erythrocyte Sedimentation Rate 57 MM/HR (0-15)
[2023-04-03] MEDS: vancomycin HCL 1,250 MG in 0.9 % Sodium Chloride 250 ML 166.67 MG IV ×2 (16:16→22:27)
[2023-04-03] MEDS: Colchicine 0.6 MG TABLET PO ×2 (16:16→22:50)
[2023-04-03] MEDS: Ibuprofen 400 MG TABLET PO (17:09)
[2023-04-04] VITALS (8 sets, daily range): BP systolic 105–119; BP diastolic 52–81; PULSE 54–123; RESP 18–20; TEMP 36.3–38.8; O2SAT 96–98
--- NOTE | 2023-04-04 | ECG_ITS ---
Test Reason : CP Blood Pressure : / mmHG Vent. Rate : 066 BPM Atrial Rate : 066 BPM P-R Int : 126 ms QRS Dur : 090 ms QT Int : 374 ms P-R-T Axes : 008 068 064 degrees QTc Int : 392 ms Normal sinus rhythm Normal ECG When compared with ECG of 03-APR-2023 04:40, ST no longer elevated in Inferior leads Nonspecific T wave abnormality has replaced inverted T waves in Anterior leads Referred By: James Wetzel Electronically Signed By:Venkatesh Grubbs
--- NOTE | 2023-04-04 04:18 | PC.NURSE ---
pt awoke from sleep complaining of chest pain 8/10 when breathing in. States he feels sweaty and described pain as a tightness. EKG was performed and showed normal sinus rhythm. Physician was contacted and made aware. Will continue to assess.
[2023-04-04] MEDS: Ampicillin Sodium/Sulbactam Na 3 GM in 0.9 % Sodium Chloride 100 ML IV ×4 (05:42→22:29)
[2023-04-04] MEDS: Morphine Sulfate 4 MG/ML CARTRIDGE IVPUSH (05:45)
[2023-04-04] MEDS: Nitroglycerin 0.4 MG PATCH.TD24 TRANSDERMA (05:47)
[2023-04-04] MEDS: Omeprazole 20 MG CAPSULE.DR PO ×2 (06:12→16:33)
[2023-04-04] MEDS: Lactated Ringers 1,000 ML 100 ML IVCONT ×2 (06:13→19:50)
[2023-04-04 06:29] LABS: Hematocrit 42.9 % (42.0-52.0); Hemoglobin 14.3 g/dl (14.0-18.0); Mean Corpuscular HGB Conc 33.3 g/dl (31.0-36.0); Mean Corpuscular Hemoglobin 28.5 pg (27.0-33.0); Mean Corpuscular Volume 85.6 fL (80.0-98.0); PLT CLUMP 1; Red Blood Count 5.01 X10*6/uL (4.60-5.80); Red Cell Distribution Width 13.5 % (11.0-16.0)
[2023-04-04 06:31] LABS: Platelet Count 192 X10*3/uL (160-400); White Blood Count 14.6 X10*3/uL (4.8-10.8)
[2023-04-04 06:42] LABS: Estimated Glomerular Filt Rate > 60
--- NOTE | 2023-04-04 06:46 | PC.NURSE ---
pt was given nitro path and 4g IV push morphine per physicians order for chest pain. Patient was assessed after 30 minuets and reported 2/10 chest pain. will continue to monitor
[2023-04-04] MEDS: vancomycin HCL 1,250 MG in 0.9 % Sodium Chloride 250 ML 166.67 MG IV (07:46)
[2023-04-04] MEDS: Acetaminophen 325 MG TABLET 650 MG PO (07:49)
[2023-04-04] MEDS: Ibuprofen 400 MG TABLET PO ×3 (07:49→16:33)
[2023-04-04] MEDS: 0.9 % Sodium Chloride Flush 3 ML SYRINGE IVFLUSH ×2 (07:51→22:31)
[2023-04-04] MEDS: Colchicine 0.6 MG TABLET PO ×2 (07:52→19:50)
[2023-04-04] MEDS: Metoprolol Tartrate 12.5 MG HALFTAB PO ×2 (07:52→19:49)
[2023-04-04 08:40] LABS: INTERNATIONAL NORM RATIO 1.1 (0.9-1.1); Prothrombin Time 13.2 SEC (10.0-13.1)
--- NOTE | 2023-04-04 09:30 | HO.PM.IMPN ---
Subjective Subjective Date of Service: 04/05/23 Interval History: soar throat?,fevers Review of Systems Throat pain and back pain seems to be improving Patient says that he had chest pain overnight currently denies any chest pain or shortness of breath or abdominal pain or? fever Physical Exam Vital Signs: Vital Signs: Last Vital Signs Temp 102 F H 04/04/23 07:37 Pulse 123 H 04/04/23 07:36 Resp 20 04/04/23 07:36 BP 105/61 04/04/23 07:36 Pulse Ox 96 04/04/23 07:36 O2 Del Method Room Air 04/04/23 07:36 BMI result Body Mass Index 19.9 Appearance: Alert.? Oriented X3.? not in distress.? throat:has mild tonsillar ,throat erythema,swelin neck-no visible? swelling ,no? erythema cvs: rrr, [id number] , no murmur res: clear to auscultation ,no rhonchii or wheezing abd: no rebound or guarding ,nt, bs present. ext pulses present , no cyanosis . neuro: axo3 , nonfocal. Objective Data Active Medications Acetaminophen (Acetaminophen 325 Mg Tablet) 650 mg PO Q6H PRN PRN Reason: Fever Last Admin: 04/04/23 07:49 Dose: 650 mg Documented By: PATRICIA Capsaicin (Capsaicin 0.025% Cream 60 Gm Tube) 1 appl TOPICAL QID PRN; Protocol PRN Reason: Pain, Mild (Pain Scale 1-3) Colchicine (Colchicine 0.6 Mg Tablet) 0.6 mg PO BID [facility] Last Admin: 04/04/23 07:52 Dose: 0.6 mg Documented By: PATRICIA Diphenhydramine HCl (Diphenhydramine Hcl 25 Mg Capsule) 25 mg PO Q6H PRN PRN Reason: itching Last Admin: 04/02/23 06:04 Dose: 25 mg Documented By: MARSHA Ampicillin Sodium/Sulbactam (Sodium 3 gm/ Sodium Chloride) 100 mls @ 200 mls/hr IV Q6H [facility] Last Infusion: 04/04/23 06:29 Dose: 0 mls/hr Documented By: MARCINAC Lactated Ringer's (Lr) 1,000 mls @ 100 mls/hr IVCONT .Q10H [facility] Last Infusion: 04/04/23 07:54 Dose: 0 mls/hr Documented By: PATRICIA Vancomycin HCl 1,250 mg/ (Sodium Chloride) 250 mls @ 166.667 mls/hr IV Q8H [facility] Last Admin: 04/04/23 07:46 Dose: 166.67 mls/hr Documented By: PATRICIA Ibuprofen (Ibuprofen 400 Mg Tablet) 400 mg PO TIDWM [facility] Last Admin: 04/04/23 07:49 Dose: 400 mg Documented By: PATRICIA Lidocaine (Lidocaine 4 % Patch Adh..Patch) 1 patch TRANSDERMA DAILY [facility]; Protocol Last Admin: 04/04/23 07:53 Dose: Not Given Documented By: PATRICIA Non-Admin Reason: Patient Refused Metoprolol Tartrate (Metoprolol Tartrate 12.5 Mg Halftab) 12.5 mg PO BID [facility]; Protocol Last Admin: 04/04/23 07:52 Dose: 12.5 mg Documented By: PATRICIA Nitroglycerin (Nitroglycerin 0.4 Mg Tab.Subl) 0.4 mg SUBLINGUAL Q5MX3 PRN PRN Reason: chest pain Last Admin: 04/03/23 03:40 Dose: 1 tab Documented By: BRIAN Omeprazole (Omeprazole 20 Mg Capsule.Dr) 20 mg PO BID@0630,1630 [facility] Last Admin: 04/04/23 06:12 Dose: 20 mg Documented By: JAN Ondansetron HCl (Ondansetron Hcl 4 Mg/2 Ml Vial) 4 mg IVPUSH Q8H PRN PRN Reason: Nausea and Vomiting Pharmacy Consult (Consult Rx Vancomycin Dosing) 1 each MISCELLANE DAILY PRN PRN Reason: Consult order Sodium Chloride (0.9 % Sodium Chloride Flush 3 Ml Syringe) 3 ml IVFLUSH QSHIFT [facility] Last Admin: 04/04/23 07:51 Dose: 3 ml Documented By: PATRICIA Labs 04/04/23 06:22 04/04/23 06:22 Labs: Laboratory Results - last 24 hr 04/02/23 04/03/23 04/03/23 16:02 05:44 07:29 MCV MCH MCHC RDW Plt Count MPV Absolute Nucleated RBC Nucleated RBC % (auto) ESR 57 H PT INR aPTT Heparin Protocol Estim Creat Clear Calc Estimated GFR Total Creatine Kinase 147 Troponin I High Sens C-Reactive Protein 19.87 H Random Vancomycin Respiratory Panel Obrien Cancelled Adenovirus (Rapid PCR) Cancelled B.pert (TEM-PCR) Cancelled B.parapertussis DNA PCR Cancelled C. pneumoniae DNA (PCR) Cancelled Coronavirus OC43 (PCR) Cancelled Coronavirus HKU1 (PCR) Cancelled Coronavirus 229E (PCR) Cancelled Coronavirus NL63 (PCR) Cancelled Human Metapneumovir PCR Cancelled Influenza A (RT-PCR) Cancelled Influenza B (RT-PCR) Cancelled M. pneumoniae (PCR) Cancelled Parainfluenza 1 (PCR) Cancelled Parainfluenza 2 (PCR) Cancelled Parainfluenza 3 (PCR) Cancelled Parainfluenza 4 (PCR) Cancelled RSV (PCR) Cancelled Entero/Rhino (PCR) Cancelled SARS-CoV-2 RNA (RT-PCR) Cancelled 04/03/23 04/03/23 04/03/23 09:07 10:57 13:53 MCV MCH MCHC RDW Plt Count MPV Absolute Nucleated RBC Nucleated RBC % (auto) ESR PT 13.9 H INR 1.2 H aPTT Heparin Protocol Estim Creat Clear Calc Estimated GFR Total Creatine Kinase Troponin I High Sens 5197.4 H* C-Reactive Protein Random Vancomycin Respiratory Panel Obrien See Note Adenovirus (Rapid PCR) Not Detected B.pert (TEM-PCR) Not Detected B.parapertussis DNA PCR Not Detected C. pneumoniae DNA (PCR) Not Detected Coronavirus OC43 (PCR) Not Detected Coronavirus HKU1 (PCR) Not Detected Coronavirus 229E (PCR) Not Detected Coronavirus NL63 (PCR) Not Detected Human Metapneumovir PCR Not Detected Influenza A (RT-PCR) Not Detected Influenza B (RT-PCR) Not Detected M. pneumoniae (PCR) Not Detected Parainfluenza 1 (PCR) Not Detected Parainfluenza 2 (PCR) Not Detected Parainfluenza 3 (PCR) Not Detected Parainfluenza 4 (PCR) Not Detected RSV (PCR) Not Detected Entero/Rhino (PCR) Not Detected SARS-CoV-2 RNA (RT-PCR) Not Detected 04/03/23 04/03/23 04/04/23 13:53 14:38 06:22 MCV 85.6 MCH 28.5 MCHC 33.3 RDW 13.5 Plt Count 192 MPV 11.0 Absolute Nucleated RBC 0.000 Nucleated RBC % (auto) 0.0 ESR PT INR aPTT Heparin Protocol 31.3 L Estim Creat Clear Calc Estimated GFR Total Creatine Kinase Troponin I High Sens C-Reactive Protein Random Vancomycin 3.5 L Respiratory Panel Obrien Adenovirus (Rapid PCR) B.pert (TEM-PCR) B.parapertussis DNA PCR C. pneumoniae DNA (PCR) Coronavirus OC43 (PCR) Coronavirus HKU1 (PCR) Coronavirus 229E (PCR) Coronavirus NL63 (PCR) Human Metapneumovir PCR Influenza A (RT-PCR) Influenza B (RT-PCR) M. pneumoniae (PCR) Parainfluenza 1 (PCR) Parainfluenza 2 (PCR) Parainfluenza 3 (PCR) Parainfluenza 4 (PCR) RSV (PCR) Entero/Rhino (PCR) SARS-CoV-2 RNA (RT-PCR) 04/04/23 04/04/23 06:22 08:12 MCV MCH MCHC RDW Plt Count MPV Absolute Nucleated RBC Nucleated RBC % (auto) ESR PT 13.2 H INR 1.1 aPTT Heparin Protocol Estim Creat Clear Calc 141.0 Estimated GFR > 60 Total Creatine Kinase Troponin I High Sens C-Reactive Protein Random Vancomycin Respiratory Panel Obrien Adenovirus (Rapid PCR) B.pert (TEM-PCR) B.parapertussis DNA PCR C. pneumoniae DNA (PCR) Coronavirus OC43 (PCR) Coronavirus HKU1 (PCR) Coronavirus 229E (PCR) Coronavirus NL63 (PCR) Human Metapneumovir PCR Influenza A (RT-PCR) Influenza B (RT-PCR) M. pneumoniae (PCR) Parainfluenza 1 (PCR) Parainfluenza 2 (PCR) Parainfluenza 3 (PCR) Parainfluenza 4 (PCR) RSV (PCR) Entero/Rhino (PCR) SARS-CoV-2 RNA (RT-PCR) Microbiology Microbiology Results: Microbiology 04/01/23 23:50 Blood Culture - Preliminary Blood - Venous No growth after 48 hours. 04/01/23 23:25 Blood Culture - Preliminary Blood - Venous No growth after 48 hours. 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 related to throat infection/pneumonia -? febrile, tachycardic with leukocytosis back lambar ct -fine cta:possible pneumonia , no P.E. neck ct -Moderate heterogeneous enlargement of the adenoids and palatine tonsils bilaterally. Mild subcutaneous edema within the anterior soft tissues of the neck. Mildly prominent bilateral level IIa lymph nodes, likely reactive in nature. still febrile this morning 102*f leucocytosis improving HIV negative, mono screen negative, RES panel negative, throat culture pending, Anaplasma, babesia ,lyme ,tick serology pending blood cultures neg @24hrs continue IV antibiotics,? follow cultures ? fever of unknown origin -? source cannot be? found.? UA negative, imaging negative for acute infection -? broad-spectrum IV antibiotics -? follow cultures -? and analgesics p.r.n. -? infectious disease consulted-recomended ct neck,changed antibiotics -vanco+unasyn. ?ileus-? abdomen is soft, nontender passing bm's this morning clear liquids,ivf added clear liquid diet seen by surgery-no acute suregrical intervention elevated troponins/chest pain: mild tachycardia -? related to fever Currently denies any chest pain, echo yesterday was fine Elevated troponin plateauing The repeat echo today, added low-dose metoprolol EKGs reviewed. Currently patient denies any chest pain Seen by Cardiology-repeat echo: Lv function seems fine Possibly have? myocarditis- added nsaids, colchicine. dvt : scd inpatient need:sepsis sec ?throat infection/pneumonia -need IV antibiotics, blood culture pending, tick serologies pending. Also possibly has myocarditis: Continue NSAIDs and colchicine and cardiology follow-up. Time Spent With Patient Time: Total time managing care of this patient today ____ minutes. Quality Stroke Does the patient have a stroke diagnosis?: No VTE Prior VTE?: No VTE Risk Level:: Medical - low VTE Device Contraindication: Treatment Not Indicated VTE Drug Contraindication: Treatment Not Indicated
--- NOTE | 2023-04-04 11:08 | PM.PNCARD ---
Subjective Subjective Date of Service: 04/04/23 Principal diagnosis: Myocarditis Interval history: Patient not having significant chest pain at this point time. Continues to have fever episodes. Of unclear etiology. Troponins have down trended. Repeat echocardiogram did not show any significant regional wall motion abnormality or significant LV systolic dysfunction. Review of Systems Constitutional: Reports chills and Reports fever(s) Cardiovascular: Reports chest pain Respiratory: Reports pain on inspiration Genitourinary: Reports no additional male genitourinary complaints Endocrine: Reports no additional endocrine complaints Physical Exam Vital Signs: Last Vital Signs Temp 98.8 F 04/04/23 09:52 Pulse 123 H 04/04/23 07:36 Resp 20 04/04/23 07:36 BP 105/61 04/04/23 07:36 Pulse Ox 96 04/04/23 07:36 O2 Del Method Room Air 04/04/23 07:36 BMI result Body Mass Index 19.9 Const General: cooperative, comfortable, no acute distress, well developed, alert and awake Nutritional Appearance: well nourished and thin Orientation/consciousness: patient oriented x3 Limitations: no limitations HEENT Head: Yes normocephalic and Yes atraumatic Neck Neck: Yes trachea midline, Yes supple and Yes no JVD Resp Effort & Inspection: normal respiratory effort Auscultation: clear to auscultation bilaterally Cardio Jugular venous distension: no JVD Palpation: normal PMI Rate: regular rate Rhythm: regular rhythm Heart sounds: S1 normal heart sound present, S2 normal heart sound present, no click, no gallops, no murmurs and no rubs GI Auscultation: normal bowel sounds Skin General skin exam: no rashes or lesions noted Neuro General: patient oriented x3 and no focal motor deficits Extrem General: Yes no clubbing, cyanosis or edema Objective Labs and Meds 04/04/23 06:22 04/04/23 06:22 Lab results: Laboratory Results - last 24 hr 04/03/23 04/03/23 04/03/23 05:44 07:29 10:57 WBC RBC Hgb Hct MCV MCH MCHC RDW Plt Count MPV Absolute Nucleated RBC Nucleated RBC % (auto) ESR 57 H PT INR aPTT Heparin Protocol Creatinine Estim Creat Clear Calc Estimated GFR Troponin I High Sens 5197.4 H* C-Reactive Protein 19.87 H Random Vancomycin 04/03/23 04/03/2323 13:53 13:53 14:38 WBC RBC Hgb Hct MCV MCH MCHC RDW Plt Count MPV Absolute Nucleated RBC Nucleated RBC % (auto) ESR PT 13.9 H INR 1.2 H aPTT Heparin Protocol 31.3 L Creatinine Estim Creat Clear Calc Estimated GFR Troponin I High Sens C-Reactive Protein Random Vancomycin 3.5 L 04/04/23 04/04/23 04/04/23 06:22 06:22 08:12 WBC 14.6 H RBC 5.01 D Hgb 14.3 D Hct 42.9 D MCV 85.6 MCH 28.5 MCHC 33.3 RDW 13.5 Plt Count 192 MPV 11.0 Absolute Nucleated RBC 0.000 Nucleated RBC % (auto) 0.0 ESR PT 13.2 H INR 1.1 aPTT Heparin Protocol Creatinine 0.71 Estim Creat Clear Calc 141.0 Estimated GFR > 60 Troponin I High Sens C-Reactive Protein Random Vancomycin Progress Note: A&P Assessment and plan (1) Myocarditis: Status: Acute Assessment and Plan: Myocarditis with improving chest pain syndrome. No heart failure syndrome or arrhythmias noted. LV systolic function is preserved without any major will wall motion a. Continue colchicine and nonsteroidals for pain and reduction in inflammation. Id consult should be considered for persistent fevers and source of infection. Continue monitor for arrhythmias. Continue metoprolol therapy. Will sign of the case. Please consult us if there are any further issues. Will send a for follow-up as outpatient. Time Spent With Patient Time: Total time managing care of this patient today ____ minutes. Progress Note: Quality Stroke Does the patient have a stroke diagnosis?: No Procedures Date of Service Date of Service: 04/04/23
[2023-04-04 13:19] LABS: Vancomycin Random 16.6 mcg/mL (15-20)
[2023-04-04] MEDS: vancomycin HCL 750 MG in 0.9 % Sodium Chloride 250 ML 265 MG IV ×2 (14:51→23:08)
[2023-04-05] VITALS (7 sets, daily range): BP systolic 112–123; BP diastolic 65–79; PULSE 65–86; RESP 14–20; TEMP 36.4–37.6; O2SAT 96–100
--- NOTE | 2023-04-05 | ECG_ITS ---
Test Reason : CHEST TIGHTNESS Blood Pressure : / mmHG Vent. Rate : 070 BPM Atrial Rate : 070 BPM P-R Int : 132 ms QRS Dur : 100 ms QT Int : 382 ms P-R-T Axes : 013 062 066 degrees QTc Int : 412 ms Normal sinus rhythm Normal ECG When compared with ECG of 04-APR-2023 03:50, No significant change was found Referred By: James Wetzel Electronically Signed By:Venkatesh Grubbs
[2023-04-05] MEDS: Ampicillin Sodium/Sulbactam Na 3 GM in 0.9 % Sodium Chloride 100 ML IV ×4 (05:04→22:29)
[2023-04-05] MEDS: Omeprazole 20 MG CAPSULE.DR PO ×2 (05:36→16:44)
[2023-04-05] MEDS: vancomycin HCL 750 MG in 0.9 % Sodium Chloride 250 ML 265 MG IV (05:37)
[2023-04-05] MEDS: Lactated Ringers 1,000 ML 100 ML IVCONT (05:38)
[2023-04-05] MEDS: Metoprolol Tartrate 12.5 MG HALFTAB PO ×2 (08:11→20:38)
[2023-04-05] MEDS: Colchicine 0.6 MG TABLET PO ×2 (08:11→20:38)
--- NOTE | 2023-04-05 08:15 | PC.NURSE ---
pt reported chest tightness/pressure and hurts with deep breathing. pt rated 3/10 on normal breathing and 6/10 with deep breathing. pt said this chest pain started from last night but he did not report to the nurse. MD notified, scheduled Ibuprofen given, EKG taken (normal sinus rhythm) repeated TROP 1397.4. Continue to monitor.
[2023-04-05] MEDS: Ibuprofen 400 MG TABLET PO ×3 (08:19→16:44)
--- NOTE | 2023-04-05 10:31 | P.CDIM_ITS ---
PROVIDER RESPONSE TEXT: To clarify, the appropriate diagnosis supported by the clinical indicators: Acute Myocarditis QUERY TEXT: PHYSICIAN'S DOCUMENTATION REQUEST Date of Query: 04/05/2023 10:17 AM EDT Patient Name: LILLIAN HACKETT Admit Date: 04/02/2023 Dear James Wetzel, A review of the medical record indicates additional documentation may be needed. Please review below and update the documentation accordingly. Clinical Indicators: PN: Seen by cardiology-repeat echo Possibly have? myocarditis - added nsaids, colchincine. Clarify which of the following accurately represents the acuity/specifics of the myocarditis if known : Possible options might include: Acute Myocarditis Subacute Myocarditis Bacterial Myocarditis Rheumatic Myocarditis Other Other (explain)Clinically unable to determine (explain)Thank you, Grazyna Del Valle, CCS, CDIS Use of terms such as suspected, likely, concern for, or probable (associated with a specific diagnosi s that is being evaluated, monitored, or treated as if it exists) are acceptable and can be coded in the inpatient se tting, when documented at the time of discharge. Please use your independent medical judgment in providing your response. THIS QUERY IS PART OF THE PERMANENT MEDICAL RECORD
[2023-04-05 10:40] LABS: Creatinine Clr Calc Pharmacy 141.8; Estimated Glomerular Filt Rate > 60
[2023-04-05 11:19] LABS: Troponin-I High Sensitivity 1397.4 ng/L (<3.5-35.0)
[2023-04-05 13:45] LABS: Vancomycin Random 4.1 mcg/mL (15-20)
--- NOTE | 2023-04-05 13:54 | HE.PHANOTE ---
RE: VANCO Patients level came back this evening at 4.1. Patient has sepsis therefore we need to get patient to therapeutic as soon as possible. Patient is showing a very variable response to vancomycin as his last trough was 16.6. Will increase dose to 1250 mg Q8H and get a level after 3 doses. Will get level tomorrow 04/06 @1300 to see how patient responds. Right now goal is to get patient therapeutic. Renal is stable. Predicted AUC 509 mg/l/hr
--- NOTE | 2023-04-05 14:32 | P.PNIM_ITS ---
Subjective Subjective Date of Service: 04/05/23 Interval History: soar throat?,Pleuritic pain Review of Systems has some chest discomfort with deep breathin throat pain seems to improving, no back pain Physical Exam Vital Signs: Vital Signs: Last Vital Signs Temp 97.9 F 04/05/23 11:11 Pulse 86 04/05/23 11:11 Resp 20 04/05/23 11:11 BP 112/65 04/05/23 11:11 Pulse Ox 97 04/05/23 11:11 O2 Del Method Room Air 04/05/23 11:11 BMI result Body Mass Index 19.9 Appearance: Alert.? Oriented X3.? not in distress.? throat:has mild tonsillar ,throat erythema,swelin-improving neck-no visible? swelling ,no? erythema cvs: rrr, [id number] , no murmur res: clear to auscultation ,no rhonchii or wheezing abd: no rebound or guarding ,nt, bs present. ext pulses present , no cyanosis, has prothesis of one side . neuro: axo3 , nonfocal. Objective Data Active Medications Acetaminophen (Acetaminophen 325 Mg Tablet) 650 mg PO Q6H PRN PRN Reason: Fever Last Admin: 04/04/23 07:49 Dose: 650 mg Documented By: PATRICIA Albuterol/Ipratropium (Albuterol/Iprat 2.5/0.5mg 3 Ml Ampul.Neb) 3 ml INHALE RQ4H WHILE AWAKE [facility] Capsaicin (Capsaicin 0.025% Cream 60 Gm Tube) 1 appl TOPICAL QID PRN; Protocol PRN Reason: Pain, Mild (Pain Scale 1-3) Colchicine (Colchicine 0.6 Mg Tablet) 0.6 mg PO BID [facility] Last Admin: 04/05/23 08:11 Dose: 0.6 mg Documented By: PATRICIA Diphenhydramine HCl (Diphenhydramine Hcl 25 Mg Capsule) 25 mg PO Q6H PRN PRN Reason: itching Last Admin: 04/02/23 06:04 Dose: 25 mg Documented By: MARSHA Ampicillin Sodium/Sulbactam (Sodium 3 gm/ Sodium Chloride) 100 mls @ 200 mls/hr IV Q6H [facility] Last Infusion: 04/05/23 11:33 Dose: 0 mls/hr Documented By: PATRICIA Vancomycin HCl 1,250 mg/ (Sodium Chloride) 250 mls @ 166.667 mls/hr IV Q8H [facility] Ibuprofen (Ibuprofen 400 Mg Tablet) 400 mg PO TIDWM [facility] Last Admin: 04/05/23 12:13 Dose: 400 mg Documented By: PATRICIA Lidocaine (Lidocaine 4 % Patch Adh..Patch) 1 patch TRANSDERMA DAILY [facility]; Protocol Last Admin: 04/05/23 08:17 Dose: Not Given Documented By: PATRICIA Non-Admin Reason: Patient Refused Metoprolol Tartrate (Metoprolol Tartrate 12.5 Mg Halftab) 12.5 mg PO BID [facility]; Protocol Last Admin: 04/05/23 08:11 Dose: 12.5 mg Documented By: PATRICIA Nitroglycerin (Nitroglycerin 0.4 Mg Tab.Subl) 0.4 mg SUBLINGUAL Q5MX3 PRN PRN Reason: chest pain Last Admin: 04/03/23 03:40 Dose: 1 tab Documented By: BRIAN Omeprazole (Omeprazole 20 Mg Capsule.Dr) 20 mg PO BID@0630,1630 [facility] Last Admin: 04/05/23 05:36 Dose: 20 mg Documented By: KIRSTIE Ondansetron HCl (Ondansetron Hcl 4 Mg/2 Ml Vial) 4 mg IVPUSH Q8H PRN PRN Reason: Nausea and Vomiting Pharmacy Consult (Consult Rx Vancomycin Dosing) 1 each MISCELLANE DAILY PRN PRN Reason: Consult order Sodium Chloride (0.9 % Sodium Chloride Flush 3 Ml Syringe) 3 ml IVFLUSH QSHIFT [facility] Last Admin: 04/05/23 08:10 Dose: Not Given Documented By: PATRICIA Non-Admin Reason: IV Running Labs 04/04/23 06:22 04/05/23 07:43 Labs: Laboratory Results - last 24 hr 04/05/23 04/05/23 04/05/23 07:43 08:57 13:11 Estim Creat Clear Calc 141.8 Estimated GFR > 60 Troponin I High Sens 1397.4 H* D Random Vancomycin 4.1 L Microbiology Microbiology Results: Microbiology 04/03/23 09:27 Throat Culture - Final Throat No Group A Beta-hemolytic Streptococci isolated. 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 related to throat infection/pneumonia -? febrile, tachycardic with leukocytosis back lumbar ct -?No evidence of acute fracture or traumatic subluxation of the lumbar spine. cta:possible pneumonia , no P.E. neck ct -Moderate heterogeneous enlargement of the adenoids and palatine tonsils bilaterally. Mild subcutaneous edema within the anterior soft tissues of the neck. Mildly prominent bilateral level IIa lymph nodes, likely reactive in nature. cxr 04/05:?atelactasis/pna today afebrile,leucocytosis improving HIV negative, mono screen negative, RES panel negative, throat culture pending, Anaplasma, babesia , borrellia ,erlichia and lyme ,tick borne serology pending blood cultures neg @48hrs continue IV antibiotics vanco(04/01) and unasyn(04/02),? follow cultures ?ileus-? abdomen is soft, nontender seems imrpoving passing bm's regular diet,dc fluids seen by surgery-no acute suregrical intervention elevated troponins/chest pain: intermiettent pleurtic pain echo:Conclusions: - 1. Trivial pericardial effusion? 2. Normal LV systolic function without significant regional wall motion abnormality ? esr and crp elevated, ?? Elevated troponin-trending down,ekg-nsr ,cxr-?atelactasis/pna Seen by Cardiology-repeat echo: Lv function seems fine Possibly have? myocarditis- added nsaids, colchicine. dvt : scd inpatient need:sepsis sec ?throat infection/pneumonia -need IV antibiotics, blood culture pending, tick serologies pending. Also possibly has myocarditis: Continue NSAIDs and colchicine and cardiology follow-up. Time Spent With Patient Time: Total time managing care of this patient today ____ minutes. Quality Stroke Does the patient have a stroke diagnosis?: No VTE Prior VTE?: No VTE Risk Level:: Medical - low VTE Device Contraindication: Treatment Not Indicated VTE Drug Contraindication: Treatment Not Indicated
[2023-04-05] MEDS: vancomycin HCL 1,250 MG in 0.9 % Sodium Chloride 250 ML 166.67 MG IV ×2 (14:55→23:00)
[2023-04-05] MEDS: 0.9 % Sodium Chloride Flush 3 ML SYRINGE IVFLUSH ×2 (14:55→20:38)
[2023-04-05] MEDS: Albuterol/Iprat 2.5/0.5MG 3 ML AMPUL.NEB INHALE ×2 (15:14→19:23)
--- NOTE | 2023-04-05 15:25 | MHC.CM.PN ---
EMR reviewed and per MD rounds, pt remains acute, he was experiencing chest pains and receiving treatment. CM will continue to follow.
[2023-04-06] VITALS: BP 112/75; PULSE 72; RESP 16; TEMP 36.7; O2SAT 99
[2023-04-06 04:00] VITALS: BP 111/72; PULSE 65; RESP 16; TEMP 36.4; O2SAT 97
[2023-04-06] MEDS: Ampicillin Sodium/Sulbactam Na 3 GM in 0.9 % Sodium Chloride 100 ML IV (05:05)
[2023-04-06] MEDS: Omeprazole 20 MG CAPSULE.DR PO (05:50)
[2023-04-06] MEDS: vancomycin HCL 1,250 MG in 0.9 % Sodium Chloride 250 ML 166.67 MG IV (05:51)
[2023-04-06 07:22] VITALS: BP 109/65; PULSE 71; RESP 16; TEMP 36.8; O2SAT 97
[2023-04-06 07:24] LABS: Lyme Abs Screen <0.90 index
[2023-04-06 07:37] LABS: Anion Gap 10 (12-20); Blood Urea Nitrogen 6 mg/dL (9-16); Calcium 8.6 mg/dL (8.4-10.2); Carbon Dioxide 27 mmol/L (22-29); Chloride 107 mmol/L (96-108); Estimated Glomerular Filt Rate > 60; Glucose Random 94 mg/dL (60-115); Potassium 3.2 mmol/L (3.3-5.1); Sodium 141 mmol/L (135-145)
[2023-04-06] MEDS: Albuterol/Iprat 2.5/0.5MG 3 ML AMPUL.NEB INHALE (07:56)
[2023-04-06] MEDS: Metoprolol Tartrate 12.5 MG HALFTAB PO (08:21)
[2023-04-06] MEDS: Colchicine 0.6 MG TABLET PO (08:22)
[2023-04-06] MEDS: Ibuprofen 400 MG TABLET PO ×2 (08:22→11:01)
--- NOTE | 2023-04-06 10:17 | PM.DS ---
DS: Providers Provider Date of Service: 04/06/23 Date of admission: 04/02/23 03:24 Primary care physician: Alecia Armando MD Consults: 04/02/23 06:04 Consult to Infectious Diseases Routine Consulting Provider: [facility] Infectious Disease Reason for consultation: fever of unknown source Has provider been notified: No 04/02/23 08:03 Consult to General Surgery Routine Consulting Provider: [facility] General Surgeons Reason for consultation: Ielus Has provider been notified: No 04/03/23 07:17 Consult to Cardiology Routine Consulting Provider: [facility] Cardiovascular Services Reason for consultation: ? Chest pain/elevated troponins Has provider been notified: No DS: Diagnosis Discharge Diagnosis (1) Myocarditis: Status: Resolved (2) Sepsis: Status: Acute (3) Throat infection: Status: Resolved DS: Summary Hospital Course Hospital Course: Chief Complaint: ? persistent fever ?22-year-old male with no significant past medical history except for a congenital or joint deformity of the left status post prosthesis presents the hospital with complaints of persistent fever.? Patient's girlfriend at bedside speaks Albanian, patient is Cymraes-speaking and the any history is obtained mostly from his girlfriend at bedside.? Different states that on Wednesday he came home from work complaining of sore throat and fever. ? Girlfriend has been treating it with Tylenol and ibuprofen, patient was seen in the ED on Wednesday for persistent fever, strep throat was negative, patient was given amoxicillin sent home.? He returns today for persistent fever, weakness, generalized body aches.? Patient denies any cough, no sputum production, some nausea no vomiting, no abdominal pain, had diarrhea 2 days prior after starting antibiotics but has not had a bowel movement since yesterday denies any abdominal pain, no urinary symptoms and no lower extremity edema.? No? skin lesions. ? On arrival to the ED today patient had a fever of 103.1, slightly tachycardic, Labs are significant for WBC count of 23.4, sodium of133, UA negative, HIV nonreactive, mono screen negative, strep negative ?abdomen pelvic CT shows possible ileus ?patient will be admitted for further management Hospital course: Patient presented with fever, throat pain, chest pain. Work up with CT and echo showed mild pericardiarl effusion. strep throat was negative, body ache. ID saw patient and raised concern of Lemierres syndrome, possible fusobacterium necrophorum that Can lead to saggital sinus thrombosis and Also possible arcanobacterium or HIV or GC chlamydia. All work up have essentially been negative, blood cultures are negative, he has been treated with empiric vancomycin. His symptoms are much improved, fever resolved, he is eating, dringking cardiology he had pericarditis and has been treated with motrin and colchicine. Mild elevation in troponin likely from pericarditis. He feels well and desires to go home Time Spent with Patient Time attestation: Total time managing care of this patient today ____ minutes. Discharge coordination time: Greater than 30 minutes Quality: Safe Use of Opioids Does Pt have an Active Cancer Diagnosis on the Problem List?: No Quality: Stroke Does the patient have a stroke diagnosis?: No Physical Exam Vital Signs: Vital Signs: Last Vital Signs Temp 98.2 F 04/06/23 07:22 Pulse 71 04/06/23 07:22 Resp 16 04/06/23 07:22 BP 109/65 04/06/23 07:22 Pulse Ox 97 04/06/23 07:22 O2 Del Method Room Air 04/06/23 07:22 BMI result Body Mass Index 19.9 DS: Data Data Completed and Pending Labs on day of discharge: Laboratory Results - last 24 hr 04/03/23 04/05/23 04/05/23 00:05 07:43 08:57 Sodium Potassium Chloride Carbon Dioxide Anion Gap BUN Creatinine 0.70 Estim Creat Clear Calc 141.8 Estimated GFR > 60 Random Glucose Calcium Troponin I High Sens 1397.4 H* D Random Vancomycin Lyme Screen IgG & IgM <0.90 04/05/23 04/06/23 13:11 06:37 Sodium 141 Potassium 3.2 L Chloride 107 Carbon Dioxide 27 Anion Gap 10 L BUN 6 L Creatinine 0.68 Estim Creat Clear Calc 146.0 Estimated GFR > 60 Random Glucose 94 Calcium 8.6 Troponin I High Sens Random Vancomycin 4.1 L Lyme Screen IgG & IgM Preliminary micro results at discharge 04/01/23 23:50 Blood Culture - Preliminary Blood - Venous No growth after 48 hours. 04/01/23 23:25 Blood Culture - Preliminary Blood - Venous No growth after 48 hours. Discharge Plan Discharge Anticipated Discharge Date/Time: 04/06/23 10:25 Patient Disposition: Home, Self-Care Discharge Diagnosis: Pericarditis, chest pain, fever Referrals: Brain Darden MD [Physician] - 1 Week Physician,Unknown J [Physician] - 1 Week Discharge Medications: Discontinued amoxicillin 875 mg tablet 875 mg PO BID Qty: 10 0RF No Action ibuprofen 800 mg Tablet 800 mg PO Q8H Qty: 41 0RF Rx Instructions: Take it for 2 weeks colchicine (gout) [Colcrys] 0.6 mg Tablet 0.6 mg PO BID Qty: 60 5RF omeprazole magnesium [Prilosec OTC] 20 mg tablet,delayed release (DR/EC) 20 mg PO DAILY Qty: 20 0RF Discharge Orders: Discharge Order (Routine); Ordered 04/06/23 Ordered By: Amaury Hernandez Diet: Advance to usual diet Activity on Discharge: No heavy lifting Stand Alone Forms: Patient Portal Discharge page Activity Restrictions/Additional Instructions: Ice to wound 20 minutes several times today and tomorrow. May shower in 2 days. Remove outside dressing only. Leave Steri-Strips intact. No strenuous activities Care Plan Goals: full recovevery from pericarditis Health Concerns: pericarditis Plan of Treatment: take Azithromycing, take colchicine and motrin for pain or fever follow up with your doctor in a week Assessment: as above Discharge Date/Time: 04/06/23 11:59
[2023-04-06] MEDS: Potassium Chloride Packet 20 MEQ PACKET 40 MEQ PO (10:52)
--- NOTE | 2023-04-06 11:29 | MHC.CM.PN ---
EMR reviewed and per MD rounds, pt medically cleared for D/C home self-care, pts S/O to transport home.
[2023-04-06 22:39] LABS: A. Phagocytphilium DNA,RT-PCR NOT DETECTED (NOT DETECTED); Babesia Microti DNA, RT-PCR NOT DETECTED (NOT DETECTED); Borrelia Miyamotoi,DNA RT-PCR NOT DETECTED (NOT DETECTED); E.Chaffeensis DNA RT-PCR NOT DETECTED (NOT DETECTED); Lyme(Borrelia ssp)DNA RT-PCR NOT DETECTED (NOT DETECTED)
== END 2023-04-06 11:59 | disposition home or self-care (01) | DRG 720 ==
LOC: HO.ED 04-02 02:28 → HO.EDOVER 04-02 03:28 → HO.IMC 04-03 14:16
PROVIDERS: Internal Medicine; Admitting Provider Internal Medicine; Emergency Provider Student in an Organized Health Care Education/Training Program; PCP Internal Medicine; Visit Provider Internal Medicine
DX: A41.9 Sepsis, unspecified organism (principal); I40.9 Acute myocarditis, unspecified; I31.9 Disease of pericardium, unspecified; B37.0 Candidal stomatitis; J18.9 Pneumonia, unspecified organism; K56.7 Ileus, unspecified; J98.11 Atelectasis; R65.20 Severe sepsis without septic shock; Z20.822 Contact with and (suspected) exposure to COVID-19
CPT/HCPCS: 36415; 70491; 71045; 71275; 72132; 74177; 80048; 80053; 80076; 80202; 80307; 81003; 82550; 82565; 83605; 84484; 85025; 85027; 85610; 85652; 85730; 86140; 86308; 86617; 86618; 87040; 87070; 87389; 87633; 87651; 87798; 87801; 93005; 93306; 93308; 94640; 99285; J0295; J1643; J2270; J2543; J3370; J3371; Q9957; Q9967

== ENCOUNTER → 2023-04-01 23:33 | Outpatient (BNV) | payer OTHER, SELFPAY | PROVIDERS: Admitting Provider Internal Medicine; Emergency Provider Student in an Organized Health Care Education/Training Program; Visit Provider Internal Medicine Cardiovascular Disease | DX: R00.0 Tachycardia, unspecified (principal); R94.31 Abnormal electrocardiogram [ECG] [EKG] | CPT/HCPCS: 93010 ==

== ENCOUNTER 2023-04-02 03:24 | Outpatient (BNV) | payer OTHER, SELFPAY | END 2023-04-04 03:50 | PROVIDERS: Admitting Provider Internal Medicine; Emergency Provider Student in an Organized Health Care Education/Training Program; PCP Internal Medicine; Visit Provider Internal Medicine Cardiovascular Disease | DX: R07.9 Chest pain, unspecified (principal) | CPT/HCPCS: 93010 ==

== ENCOUNTER 2023-04-02 03:24 | Outpatient (BNV) | payer OTHER, SELFPAY | END 2023-04-02 07:00 | PROVIDERS: Admitting Provider Internal Medicine; Emergency Provider Student in an Organized Health Care Education/Training Program; PCP Internal Medicine; Visit Provider Internal Medicine Cardiovascular Disease | DX: R50.9 Fever, unspecified (principal) | CPT/HCPCS: 93010; 93306 ==

== ENCOUNTER 2023-04-02 03:24 | Outpatient (BNV) | payer OTHER, SELFPAY | END 2023-04-05 08:20 | PROVIDERS: Admitting Provider Internal Medicine; Emergency Provider Student in an Organized Health Care Education/Training Program; PCP Internal Medicine; Visit Provider Internal Medicine Cardiovascular Disease | DX: R07.9 Chest pain, unspecified (principal) | CPT/HCPCS: 93010 ==

== ENCOUNTER 2023-04-02 03:24 | Outpatient (BNV) | payer OTHER, SELFPAY | END 2023-04-03 04:37 | PROVIDERS: Admitting Provider Internal Medicine; Emergency Provider Student in an Organized Health Care Education/Training Program; PCP Internal Medicine; Visit Provider Internal Medicine Cardiovascular Disease | DX: R07.9 Chest pain, unspecified (principal) | CPT/HCPCS: 93010; 93308 ==

== ENCOUNTER → 2023-04-02 03:24 | Outpatient (BNV) | payer OTHER, SELFPAY | PROVIDERS: Admitting Provider Internal Medicine; Emergency Provider Student in an Organized Health Care Education/Training Program; Visit Provider Internal Medicine | DX: I51.4 Myocarditis, unspecified (principal); A41.9 Sepsis, unspecified organism; J02.9 Acute pharyngitis, unspecified | CPT/HCPCS: 99223; 99232; 99239; 99499 ==

== ENCOUNTER → 2023-04-02 03:24 | Outpatient (BNV) | payer OTHER, SELFPAY | PROVIDERS: Admitting Provider Internal Medicine; Emergency Provider Student in an Organized Health Care Education/Training Program; Visit Provider Surgery | DX: A41.9 Sepsis, unspecified organism (principal); R50.9 Fever, unspecified; K56.7 Ileus, unspecified | CPT/HCPCS: 99222 ==

== ENCOUNTER → 2023-04-02 03:24 | Outpatient (BNV) | payer OTHER, SELFPAY | PROVIDERS: Admitting Provider Internal Medicine; Emergency Provider Student in an Organized Health Care Education/Training Program; PCP Internal Medicine; Visit Provider Internal Medicine | DX: A41.9 Sepsis, unspecified organism (principal); R65.20 Severe sepsis without septic shock | CPT/HCPCS: 99222 ==

== ENCOUNTER → 2023-04-02 03:24 | Outpatient (BNV) | payer OTHER, SELFPAY | PROVIDERS: Admitting Provider Internal Medicine; Emergency Provider Student in an Organized Health Care Education/Training Program; PCP Internal Medicine; Visit Provider Internal Medicine Cardiovascular Disease | DX: I51.4 Myocarditis, unspecified (principal) | CPT/HCPCS: 99222; 99233 ==

== ENCOUNTER 2023-04-13 15:05 | Outpatient (AMB) | payer OTHER, SELFPAY ==
[2023-04-13 15:09] VITALS: BP 108/66; PULSE 80; BMI 19.0
--- NOTE | 2023-04-13 15:09 | MHC.OFFVIS ---
Intake Vital Signs 04/13/23 15:09 Height 5 ft 9 in Weight 129 lb BMI 19.0 BP 108/66 Blood Pressure Location Rt brachial Position Sitting Pulse 80 Intake Visit Reasons: Ileus Intake Note: Patient was referred for Ileus. Denies abd pain. No nausea or constipation. Bar Helper Required: No Accompanied by: Spouse Allergies No Known Allergies Allergy (Verified 04/13/23 15:12) HPI HPI Comments History of Present Illness Details Patient presents here with a family member status post recent hospitalization for systemic infection most likely thought to be related to pharyngitis. Heme self had no abdominal issues or complaints. He was seen in surgery consultation at that time and there were no acute surgical issues. Today, patient is feeling almost back to normal. He has time diet having normal bowel habits. He has no abdominal issues or complaints. [facility] Medical History (Updated 04/13/23 @ 15:14 by TABBY Lucas) History of left above knee amputation (~09/10/20) No pertinent past medical history Surgical History (Updated 04/13/23 @ 15:20 by Brain Darden MD) No pertinent past surgical history Social History Household Members: Spouse Housing: Apartment Do you presently have visiting nurse or other home services: No Alcohol intake: current Alcohol intake frequency: holidays/special occasions only Patient Tobacco Use Status: Never used Tobacco service: No Physical Exam Vital Signs: Last Vital Signs Pulse 80 04/13/23 15:09 BP 108/66 04/13/23 15:09 BMI result Body Mass Index 19.0 Eyes Other: Anicteric GI Other: Abdomen soft, benign. Extrem Other: Patient has a left lower extremity prostatic. This was required secondary to a defect. Assessment & Plan Assessment & Plan (1) Throat infection: Code(s): J02.9 - Acute pharyngitis, unspecified (2) Fever of unknown origin: Code(s): R50.9 - Fever, unspecified (3) Ileus: Code(s): K56.7 - Ileus, unspecified Plan No acute surgical issues or complaints. Patient's family member would like to arrange for a medical doctor in the [facility] system because she is very discontent with his current outside physician. Arrangements were made for this. Patient otherwise follow up with surgery p.r.n. Coding Level of Care Code Est Pt Level 3 (97403) Diagnoses Throat infection J02.9 Fever of unknown origin R50.9 Ileus K56.7
== END 2023-04-13 15:20 | disposition home or self-care (01) ==
PROVIDERS: PCP Internal Medicine; Visit Provider Surgery
DX: J02.9 Acute pharyngitis, unspecified (principal); R50.9 Fever, unspecified; K56.7 Ileus, unspecified
CPT/HCPCS: 99213

== ENCOUNTER → 2023-04-13 15:05 | Outpatient (BNVA) | payer OTHER, SELFPAY | PROVIDERS: PCP Internal Medicine; Visit Provider Surgery | DX: K56.7 Ileus, unspecified (principal); J02.9 Acute pharyngitis, unspecified; R50.9 Fever, unspecified | CPT/HCPCS: 99212 ==

== ENCOUNTER 2023-04-29 14:11 | Outpatient (AMB) | payer OTHER, SELFPAY ==
--- NOTE | 2023-04-29 14:30 | A.OFFVIS_ITS ---
Intake Vital Signs 04/29/23 14:31 Height 5 ft 9 in Weight 134 lb 7.712 oz BMI 19.9 BP 120/70 Blood Pressure Location Lt brachial Position Sitting Pulse 61 Pulse Source Pulse Oximeter Intake Visit Reasons: f/up 4 weeks Intake Note: f/up 4 weeks patient still having chest pain while doing physical activities Retail Sales Specialist Required: No Allergies No Known Allergies Allergy (Verified 04/29/23 14:36) HPI f/up 4 weeks HPI Details Edwin is a 23-year-old male with past medical history of left leg congenital deformity with prosthesis who was recently admitted to [facility] with fever, acute pharyngitis, sepsis, and treated for fever of unknown origin, followed by infectious disease. He also reported chest discomfort, had elevated troponin and ultimately treated for myocarditis. He was managed medically and discharged with amoxicillin and ibuprofen. Today he reports he has been feeling good since his hospital discharge. He is feeling some quick stabs in his chest which he admits may be a palpitation. He has no other chest discomfort, no pain with deep inspiration or movement of his torso. No shortness of breath, palpitations, dizziness, presyncope, syncope, PND, orthopnea or edema. At this point he is not taking any medications. Girlfriend is present who is assisting with Dominican interpretation at their request. [facility] Medical History History of left above knee amputation (~09/10/20) No pertinent past medical history Surgical History No pertinent past surgical history Social History Household Members: Spouse Housing: Apartment Do you presently have visiting nurse or other home services: No Alcohol intake: current Alcohol intake frequency: holidays/special occasions only Patient Tobacco Use Status: Never used Tobacco service: No Review of Systems Const All systems reviewed & are unremarkable except as noted in HPI and below ENT Reports dizziness Card Details: Palpitation Reports chest pain (Quick stabbing pain in chest), Denies chest pain at rest, Denies chest pain with activity, Denies rapid heart rate, Denies pedal edema, Denies edema, Denies leg edema, Denies lightheadedness, Denies palpitations, Denies dyspnea, Denies dyspnea on exertion and Denies orthopnea Resp Denies cough, Denies dyspnea and Denies dyspnea on exertion GI Denies hematochezia and Denies change in stool character Musc Denies abnormal gait, Reports limited range of motion, Reports muscle cramps, Denies muscle weakness, Denies numbness, Denies radiating pain into limb, Denies stiffness and Denies tingling Neuro Denies abnormal gait, Reports dizziness, Denies numbness and Denies tingling Endo Denies palpitations Physical Exam Vital Signs: Last Vital Signs Pulse 61 04/29/23 14:31 BP 120/70 04/29/23 14:31 BMI result Body Mass Index 19.9 Const General: cooperative, healthy appearing, comfortable and no acute distress Orientation/consciousness: patient oriented x3 Neck Neck: Yes normal visual inspection Resp Effort & Inspection: normal respiratory effort Auscultation: clear to auscultation bilaterally, no crackles, no rales, no rhonchi and no wheezes Cardio Jugular venous distension: no JVD Rate: regular rate Rhythm: regular rhythm Heart sounds: S1 normal heart sound present, S2 normal heart sound present, no murmurs and no rubs Neuro General: patient oriented x3 Extrem Other: Left BKA, no edema right lower extremity Psych Appearance: grossly normal Mental Status: mental status grossly normal Speech and movement: Normal speech and movement present Office Procedures EKG Details: Today, read by me, normal sinus rhythm, Brugada type 2 pattern seen V2, V3, rate 61 [id number], Complete Assessment & Plan Assessment & Plan (1) Myocarditis: Code(s): I51.4 - Myocarditis, unspecified Plan: [place] [facility] [place] illness with fever of unknown origin, sepsis picture. Followed by Infectious Disease. He did report having chest discomfort and had elevated troponins up to 6022.7. He was treated for possible NSTEMI with heparin 48 hours. Initial Echocardiogram showed EF 60-65%, no clear vegetations, no wall motion abnormalities. Repeat echo done after rise in troponin showed EF 55-60%, no significant regional wall motion abnormalities. He was felt to have myocarditis and initially treated with colchicine and non steroidals. He was discharged with ibuprofen and his amoxicillin. At this point he is off all medications and denies any concerning chest symptoms. He does get some quick sharp pains which could be palpitations, unclear. No exertional symptoms. He has a cardiac MRI ordered already by Dr. Hendricks which has not been obtained as of yet. Cardiology follow-up in 2 months, sooner if needed (2) Tachycardia: Code(s): R00.0 - Tachycardia, unspecified Plan: During hospital illness, heart rate controlled at this time without rate slowing medications. (3) Abnormal EKG: Code(s): R94.31 - Abnormal electrocardiogram [ECG] [EKG] Plan: EKG during acute illness and sepsis picture with findings of Brugada type 1 pattern which did resolve with improvement in his condition. EKG done today showing sinus rhythm with Brugada type 2 pattern, rate 61. No family hx fo SCD. No hx presyncope, syncope. Unclear if he is noticing heart palpitations or quick musculoskeletal type pains. Will check Holter monitor. (4) Hospital discharge follow-up: Code(s): Z09 - Encounter for follow-up examination after completed treatment for conditions other than malignant neoplasm Orders: Orders ECG 3 day holter monitor 04/29/23 R94.31 - Abnormal electrocardiogram [ECG] [EKG] Coding Level of Care Code Est Pt Level 4 (03036) Diagnoses Myocarditis I51.4 Tachycardia R00.0 Abnormal EKG R94.31 Hospital discharge follow-up Z09 CPT Codes EKG - CPT: 37505-[id number], Complete ([id number]) Time Spent (min) 28 Comment Chart review, documentation, interview, assess
[2023-04-29 14:31] VITALS: BP 120/70; PULSE 61; BMI 19.9
== END 2023-04-29 15:10 | disposition home or self-care (01) ==
PROVIDERS: PCP Internal Medicine; Referring Provider Internal Medicine; Visit Provider Nurse Practitioner Family
DX: R00.0 Tachycardia, unspecified (principal)
CPT/HCPCS: 93010; 99214

== ENCOUNTER → 2023-04-29 14:11 | Outpatient (BNVA) | payer OTHER, SELFPAY | PROVIDERS: PCP Internal Medicine; Referring Provider Internal Medicine; Visit Provider Nurse Practitioner Family | DX: I51.4 Myocarditis, unspecified (principal); R00.0 Tachycardia, unspecified; R94.31 Abnormal electrocardiogram [ECG] [EKG] | CPT/HCPCS: 93005; 99212 ==

== ENCOUNTER 2023-05-06 13:14 | Observation (INO) | payer OTHER, SELFPAY ==
[2023-05-06] VITALS (8 sets, daily range): BP systolic 94–128; BP diastolic 48–75; PULSE 77–126; RESP 14–22; TEMP 36.7–38.7; O2SAT 93–100; BMI 20.2; BMI 20.9
--- NOTE | ~2023-05-06 | XR_ITS ---
EXAMINATION: XR CHEST CLINICAL INFORMATION: Chest pain COMPARISON: 04/05/2023 TECHNIQUE: Frontal and lateral views of the chest were obtained. FINDINGS: No significant abnormality is noted involving the heart, lungs, mediastinum, bony thorax or soft tissues. XR/XR chest 2V IMPRESSION: No acute cardiopulmonary disease.
--- NOTE | ~2023-05-06 | CT_ITS ---
EXAMINATION: CT ABDOMEN AND PELVIS WITHOUT CONTRAST CLINICAL INFORMATION: Right flank pain and fever, rule out obstructive calculus. COMPARISON: 04/02/2023 TECHNIQUE: Multidetector volumetric imaging was performed from the superior aspect of the liver through the pubic symphysis. Sagittal and coronal reformatted images were obtained on the technologist's workstation. This CT examination was performed using dose optimization techniques as appropriate, variously including the following: *Automated exposure control *Adjustment of mA and/or kV according to patient size (this includes techniques or standardized protocols for targeted exams where dose is matched to indication/reason for exam; i.e. extremities or head) *Use of iterative reconstruction technique DLP: 387 mGy-cm FINDINGS: Evaluation of the abdominal and pelvic structures is limited by a marked paucity of intra-abdominal adipose tissue and the lack of oral and intravenous contrast. LUNG BASES: The visualized lung bases are unremarkable. LIVER, GALLBLADDER, AND BILIARY TREE: The liver is normal in size, shape, and attenuation. No focal hepatic lesion or biliary ductal dilatation is present. The gallbladder is unremarkable with no evidence of radiopaque gallstones, gallbladder wall thickening, or obvious pericholecystic inflammatory changes. PANCREAS: Unremarkable. SPLEEN: Unremarkable. ADRENAL GLANDS: Unremarkable. KIDNEYS AND URETERS: The kidneys are normal in size, shape, and attenuation. No hydronephrosis, hydroureter, or calculi seen. No perinephric stranding. BLADDER: Unremarkable. GASTROINTESTINAL TRACT: The small and large bowel are unremarkable. No dilated large or small bowel loops are evident. The appendix is nonvisualized. ABDOMINAL WALL: No significant hernia is appreciated. LYMPH NODES: Normal. VASCULAR: Unremarkable. PELVIC VISCERA: Unremarkable. OSSEOUS STRUCTURES: Unremarkable. CT/CT abdomen pelvis wo IV con IMPRESSION: 1. Unremarkable noncontrast CT the abdomen and pelvis. In particular, no calculi or obstructive uropathy is evident. Fleischner guidelines were followed.
--- NOTE | 2023-05-06 13:16 | ECG_ITS ---
Test Reason : cp Blood Pressure : / mmHG Vent. Rate : 113 BPM Atrial Rate : 113 BPM P-R Int : 120 ms QRS Dur : 092 ms QT Int : 296 ms P-R-T Axes : 035 063 063 degrees QTc Int : 406 ms Sinus tachycardia Incomplete right bundle branch block Borderline ECG When compared with ECG of 05-APR-2023 08:20, Vent. rate has increased BY 43 BPM Incomplete right bundle branch block is now Present Referred By: Generic ED Physician Electronically Signed By:WILLA NEVILLE
--- NOTE | 2023-05-06 13:25 | PC.NURSE ---
pt a&ox3. respirations even and unlabored. lung sounds clear on auscultation. abdomen soft but tender to touch all over. bowel sounds active x4 quadrants. pt reports having a mild chest pain last night, as he was lifting a box for work this morning the pain got much worse. pt denies n/v. pt reports seeing his burr sander 2 weeks ago. pt sinus tachy on monitor. pt feels hot, medicated per mar. pt denies chest pain radiating anywhere.
[2023-05-06] MEDS: Acetaminophen 325 MG TABLET 650 MG PO (13:41)
[2023-05-06 14:05] LABS: MANUAL DIFF FLAG NO
--- NOTE | 2023-05-06 14:05 | ED_ITS ---
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 No coughing, no photophobia, no neck stiffness, no coughing, no nausea, no vomiting, no diarrhea, no exposure to a sick contact, no sore throat, no recent travel, no skin redness. No dysuria, no urinary frequency. 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 Related Data Allergies Allergy/AdvReac Type Severity Reaction Status Date / Time No Known Allergies Allergy Verified 05/06/23 13:31 Review of Systems Review of Systems: All other systems are reviewed and are negative Constitutional: Reports as per HPI and Reports no additional constitutional complaints Eyes: Reports as per HPI and Reports no additional eye complaints Reports system reviewed and no additional complaints, except as documented Cardiovascular: Reports as per HPI and Reports no additional cardiovascular complaints Respiratory: Reports as per HPI and Reports no additional respiratory complaints Gastrointestinal: Reports as per HPI and Reports no additional gastrointestinal complaints Genitourinary: Reports no additional female genitourinary complaints Musculoskeletal: Reports no additional musculoskeletal complaints Skin/Breast: Reports system reviewed and no additional complaints, except as docu Psychiatric: Reports no additional psychiatric complaints Endocrine: Reports no additional endocrine complaints Hematologic/Lymphatic: Reports no additional hematologic/lymphatic complaints Allergic/Immunologic: Reports no additional allergic/immunologic complaints Reports system reviewed and no additional complaints, except as documented and Reports Abnormal speech present [facility] Past Medical History Medical History History of left above knee amputation (~09/10/20) No pertinent past medical history Surgical History No pertinent past surgical history Social History Social History Household Members: Spouse Housing: Apartment Do you presently have visiting nurse or other home services: No Alcohol intake: never Patient Tobacco Use Status: Never used Tobacco Smoked in Last 30 Days: No Use of substances other than those prescribed or required for medical reasons: No Advance Directives: No Advance Directives Information Provided: No service: No Physical Exam Vital Signs: Vital Signs: Last Vital Signs Temp 99.8 F 05/06/23 14:55 Pulse 117 H 05/06/23 13:25 Resp 22 H 05/06/23 13:25 BP 111/57 L 05/06/23 15:08 Pulse Ox 93 05/06/23 13:25 O2 Del Method Room Air 05/06/23 13:25 BMI result Body Mass Index 20.2 Vital signs have been reviewed as appeared to be correct. Blood pressure normal. Heart rate elevated. Respiration rate normal. Temperature elevated. Oxygen saturation normal. Appearance: Alert. Oriented X3. No acute distress. Head: Normal external exam. Normocephalic. Atraumatic. No Rodriguez signs noted. No raccoon eyes noted Eyes: PERRLA. EOMI. Conjunctiva and sclera normal. Eyelids normal. ENT: TM's Normal. Pharynx normal. Uvula midline. Moist mucous membranes. No trismus noted. No drooling noted. No muffled voice noted. Neck: Normal inspection. Neck supple. FROM. No adenopathy. Thyroid Normal. No meningeal signs. No neck mass noted. CVS: Normal heart rate and rhythm. Heart sound normal. No murmurs noted. Pulses normal throughout. Respiratory: No respiratory distress. Painless inspiration. Breath sounds normal. No wheezes/rales/rhonchi noted. Chest nontender. No accessory muscle usage noted or decreased air movement noted. Abdomen: Soft and nontender. Bowel sounds normal in all 4 quadrants. No distention noted. No organomegaly noted. No visible injury noted. Back: No CVA tenderness. Full range of motion noted. Skin: No skin cellulitis is appreciated on exam. Extremities: Left BKA. Neuro: Oriented X 3. Cranial nerve exam: II-XII are grossly intact No motor deficit. No sensory deficit. Reflexes normal. Course Course Course Narrative: 23-year-old male for evaluation of fever of unknown etiology, patient had previous presentation with 5 days hospitalization for symptoms with a suggestion of pericarditis versus Lemierres syndrome. Patient received 30 cc/kg and Zosyn IV feels slightly better, /patient concern of worsening of his course of disease like last time will observe overnight in the hospital. Medications Administered Discontinued Medications Generic Name Dose Route Start Last Admin Trade Name Santana PRN Reason Stop Dose Admin Acetaminophen 650 mg 05/06/23 13:36 05/06/23 13:41 Acetaminophen 325 Mg Tablet PO 05/06/23 13:37 650 mg ONCE ONE Administration Sodium Chloride 1,857 mls @ 1,857 mls/hr 05/06/23 14:15 05/06/23 14:53 Ns 30 ml/kg infuse over 1 hr (1857 ml) 05/06/23 15:14 1,857 mls/hr IV Administration .Q1H STA Piperacillin Sod/Tazobactam 50 mls @ 100 mls/hr 05/06/23 14:15 05/06/23 14:54 Sod 3.375 gm/ Sodium Chloride IV 05/06/23 14:44 100 mls/hr ONCE ONE Administration Ibuprofen 600 mg 05/06/23 14:50 05/06/23 15:07 Ibuprofen 600 Mg Tablet PO 05/06/23 14:51 600 mg ONCE ONE Administration Medical Decision Making Differential Diagnosis Differential Diagnoses: The differential diagnosis associated with the presentation includes (Pneumonia, UTI, sepsis, septic shock, severe sepsis, pharyngitis, pyelonephritis, electrolyte abnormalities, severe anemia.) Admission/Observation Consideration of admission/observation: Escalation of care including admission/observation considered Consult Healthcare Provider Management of the patient was discussed with: Hospitalist (Dr. Hernandez) Lab Data MDM Lab Attestation statement: I reviewed the patient's lab results. 05/06/23 14:00 05/06/23 14:00 Labs: Lab Results 05/06/23 05/06/23 05/06/23 Range/Units 14:00 14:00 14:00 WBC 13.3 H (4.8-10.8) X10*3/uL RBC 5.06 (4.60-5.80) X10*6/uL Hgb 14.4 (14.0-18.0) g/dl Hct 42.1 (42.0-52.0) % MCV 83.2 (80.0-98.0) fL MCH 28.5 (27.0-33.0) pg MCHC 34.2 (31.0-36.0) g/dl RDW 13.7 (11.0-16.0) % Plt Count 180 (160-400) X10*3/uL MPV 10.8 (9.4-12.4) fL Immature Gran % (Auto) 0.3 (0.0-0.4) % Neut % (Auto) 89.8 H (45-73) % Lymph % (Auto) 5.0 L (20-40) % [place] % (Auto) 4.6 (2-11) % Eos % (Auto) 0.1 (0-4) % Baso % (Auto) 0.2 (0-2) % Lymph # (Auto) 0.7 L (1.2-4.9) X10*3/uL [place] # (Auto) 0.6 (0.1-1.2) X10*3/uL Eos # (Auto) 0.0 (0.0-0.4) X10*3/uL Baso # (Auto) 0.0 (0.0-0.2) X10*3/uL Abs Immat Gran (auto) 0.04 H (0.00-0.03) X10*3/uL Absolute Neuts (auto) 12.0 H (2.0-8.3) x10*3/uL Absolute Nucleated RBC 0.000 (0.0-0.012) X10*3/uL Nucleated RBC % (auto) 0.0 (0.0-0.2) /100WBC Sodium 134 L (135-145) mmol/L Potassium 4.0 D (3.3-5.1) mmol/L Chloride 100 (96-108) mmol/L Carbon Dioxide 26 (22-29) mmol/L Anion Gap 12 (12-20) BUN 8 L (9-16) mg/dL Creatinine 0.93 (0.5-1.4) mg/dL Estim Creat Clear Calc 108.1 Estimated GFR > 60 Random Glucose 99 (60-115) mg/dL Lactic Acid (0.5-2.0) mmol/L Calcium 9.1 (8.4-10.2) mg/dL Total Bilirubin 1.2 H (0.0-1.0) mg/dL Direct Bilirubin 0.4 (0.0-0.5) mg/dL AST 22 (5-37) U/L ALT 9 (0-40) U/L Alkaline Phosphatase 74 (39-117) U/L Troponin I High Sens 8.7 D (<3.5-35.0) ng/L Total Protein 8.2 H (6.5-8.0) g/dL Albumin 4.5 (3.5-5.0) g/dL Lipase 26 (8-78) U/L Urine Color Urine Appearance Urine pH (5.0-9.0) Ur Specific [place] (1.005-1.025) Urine Protein (Neg-Trace) mg/dL Urine Glucose (UA) (Negative) mg/dL Urine Ketones (Negative) mg/dL Urine Blood (Negative) Urine Nitrite (Negative) Ur Leukocyte Esterase (Negative) COVID-19 ([facility]) (Negative) COVID-19 Clin Com Influenza Type A (PCR) (Negative) Influenza Type B (PCR) (Negative) RSV RNA Qual (PCR) (Negative) SARS-CoV-2 RNA (RT-PCR) (Negative) S. pyogenes GrpA PREMA (Negative) 05/06/23 05/06/23 05/06/23 Range/Units 14:00 14:00 14:25 WBC (4.8-10.8) X10*3/uL RBC (4.60-5.80) X10*6/uL Hgb (14.0-18.0) g/dl Hct (42.0-52.0) % MCV (80.0-98.0) fL MCH (27.0-33.0) pg MCHC (31.0-36.0) g/dl RDW (11.0-16.0) % Plt Count (160-400) X10*3/uL MPV (9.4-12.4) fL Immature Gran % (Auto) (0.0-0.4) % Neut % (Auto) (45-73) % Lymph % (Auto) (20-40) % [place] % (Auto) (2-11) % Eos % (Auto) (0-4) % Baso % (Auto) (0-2) % Lymph # (Auto) (1.2-4.9) X10*3/uL [place] # (Auto) (0.1-1.2) X10*3/uL Eos # (Auto) (0.0-0.4) X10*3/uL Baso # (Auto) (0.0-0.2) X10*3/uL Abs Immat Gran (auto) (0.00-0.03) X10*3/uL Absolute Neuts (auto) (2.0-8.3) x10*3/uL Absolute Nucleated RBC (0.0-0.012) X10*3/uL Nucleated RBC % (auto) (0.0-0.2) /100WBC Sodium (135-145) mmol/L Potassium (3.3-5.1) mmol/L Chloride (96-108) mmol/L Carbon Dioxide (22-29) mmol/L Anion Gap (12-20) BUN (9-16) mg/dL Creatinine (0.5-1.4) mg/dL Estim Creat Clear Calc Estimated GFR Random Glucose (60-115) mg/dL Lactic Acid 0.7 (0.5-2.0) mmol/L Calcium (8.4-10.2) mg/dL Total Bilirubin (0.0-1.0) mg/dL Direct Bilirubin (0.0-0.5) mg/dL AST (5-37) U/L ALT (0-40) U/L Alkaline Phosphatase (39-117) U/L Troponin I High Sens (<3.5-35.0) ng/L Total Protein (6.5-8.0) g/dL Albumin (3.5-5.0) g/dL Lipase (8-78) U/L Urine Color Urine Appearance Urine pH (5.0-9.0) Ur Specific [place] (1.005-1.025) Urine Protein (Neg-Trace) mg/dL Urine Glucose (UA) (Negative) mg/dL Urine Ketones (Negative) mg/dL Urine Blood (Negative) Urine Nitrite (Negative) Ur Leukocyte Esterase (Negative) COVID-19 ([place]) Negative (Negative) COVID-19 Clin Com See Note Influenza Type A (PCR) NEGATIVE (Negative) Influenza Type B (PCR) NEGATIVE (Negative) RSV RNA Qual (PCR) NEGATIVE (Negative) SARS-CoV-2 RNA (RT-PCR) NEGATIVE (Negative) S. pyogenes GrpA PREMA (Negative) 05/06/23 05/06/23 Range/Units 14:25 14:31 WBC (4.8-10.8) X10*3/uL RBC (4.60-5.80) X10*6/uL Hgb (14.0-18.0) g/dl Hct (42.0-52.0) % MCV (80.0-98.0) fL MCH (27.0-33.0) pg MCHC (31.0-36.0) g/dl RDW (11.0-16.0) % Plt Count (160-400) X10*3/uL MPV (9.4-12.4) fL Immature Gran % (Auto) (0.0-0.4) % Neut % (Auto) (45-73) % Lymph % (Auto) (20-40) % [place] % (Auto) (2-11) % Eos % (Auto) (0-4) % Baso % (Auto) (0-2) % Lymph # (Auto) (1.2-4.9) X10*3/uL [place] # (Auto) (0.1-1.2) X10*3/uL Eos # (Auto) (0.0-0.4) X10*3/uL Baso # (Auto) (0.0-0.2) X10*3/uL Abs Immat Gran (auto) (0.00-0.03) X10*3/uL Absolute Neuts (auto) (2.0-8.3) x10*3/uL Absolute Nucleated RBC (0.0-0.012) X10*3/uL Nucleated RBC % (auto) (0.0-0.2) /100WBC Sodium (135-145) mmol/L Potassium (3.3-5.1) mmol/L Chloride (96-108) mmol/L Carbon Dioxide (22-29) mmol/L Anion Gap (12-20) BUN (9-16) mg/dL Creatinine (0.5-1.4) mg/dL Estim Creat Clear Calc Estimated GFR Random Glucose (60-115) mg/dL Lactic Acid (0.5-2.0) mmol/L Calcium (8.4-10.2) mg/dL Total Bilirubin (0.0-1.0) mg/dL Direct Bilirubin (0.0-0.5) mg/dL AST (5-37) U/L ALT (0-40) U/L Alkaline Phosphatase (39-117) U/L Troponin I High Sens (<3.5-35.0) ng/L Total Protein (6.5-8.0) g/dL Albumin (3.5-5.0) g/dL Lipase (8-78) U/L Urine Color Yellow Urine Appearance Clear Urine pH 7.0 (5.0-9.0) Ur Specific [place] 1.010 (1.005-1.025) Urine Protein Negative (Neg-Trace) mg/dL Urine Glucose (UA) Negative (Negative) mg/dL Urine Ketones Trace (Negative) mg/dL Urine Blood Negative (Negative) Urine Nitrite Negative (Negative) Ur Leukocyte Esterase Negative (Negative) COVID-19 ([facility]) (Negative) COVID-19 Clin Com Influenza Type A (PCR) (Negative) Influenza Type B (PCR) (Negative) RSV RNA Qual (PCR) (Negative) SARS-CoV-2 RNA (RT-PCR) (Negative) S. pyogenes GrpA PREMA Negative (Negative) Independent Interpretation I performed an independent interpretation of an: Plain X-Ray (Chest: No acute intrathoracic pathology.) and CT Scan (Abdomen and pelvis: No acute intra- abdominal pathology.) Radiology Impression Discussion of test interpretation with radiology: I have reviewed the radiologist's reading. Discharge Plan Discharge Clinical Impression: Sepsis, Recurrent fever of unknown etiology Patient Disposition: Admitted As Inpatient
[2023-05-06 14:08] LABS: Basophils Percent Auto 0.2 % (0-2); Eosinophils Percent Auto 0.1 % (0-4); Hematocrit 42.1 % (42.0-52.0); Hemoglobin 14.4 g/dl (14.0-18.0); Imm Gran Abs Auto 0.04 X10*3/uL (0.00-0.03); Imm Gran Pct Auto 0.3 % (0.0-0.4); Lymphocytes Absolute Auto 0.7 X10*3/uL (1.2-4.9); Mean Corpuscular HGB Conc 34.2 g/dl (31.0-36.0); Mean Corpuscular Hemoglobin 28.5 pg (27.0-33.0); Mean Corpuscular Volume 83.2 fL (80.0-98.0); Mean Platelet Volume 10.8 fL (9.4-12.4); Monocytes Absolute Auto 0.6 X10*3/uL (0.1-1.2); Monocytes Percent Auto 4.6 % (2-11); Neutrophils Percent Auto 89.8 % (45-73); Platelet Count 180 X10*3/uL (160-400); Red Blood Count 5.06 X10*6/uL (4.60-5.80); Red Cell Distribution Width 13.7 % (11.0-16.0); White Blood Count 13.3 X10*3/uL (4.8-10.8)
[2023-05-06 14:19] LABS: Lactic Acid 0.7 mmol/L (0.5-2.0)
[2023-05-06 14:25] LABS: Alanine Aminotransferase 9 U/L (0-40); Albumin Level 4.5 g/dL (3.5-5.0); Alkaline Phosphatase 74 U/L (39-117); Anion Gap 12 (12-20); Aspartate Amino Transferase 22 U/L (5-37); Bilirubin Direct 0.4 mg/dL (0.0-0.5); Bilirubin Total 1.2 mg/dL (0.0-1.0); Blood Urea Nitrogen 8 mg/dL (9-16); Calcium 9.1 mg/dL (8.4-10.2); Carbon Dioxide 26 mmol/L (22-29); Chloride 100 mmol/L (96-108); Creatinine Clr Calc Pharmacy 108.1; Estimated Glomerular Filt Rate > 60; Glucose Random 99 mg/dL (60-115); Lipase 26 U/L (8-78); Sodium 134 mmol/L (135-145); Total Protein 8.2 g/dL (6.5-8.0)
[2023-05-06 14:28] LABS: Troponin-I High Sensitivity 8.7 ng/L (<3.5-35.0)
[2023-05-06 14:34] LABS: COVID-19 Test Negative (Negative); IDNOW Serial# 55D5AD1C
[2023-05-06 14:38] LABS: Appearance Urine Clear; Color Urine Yellow; Glucose Urine UA Negative (Negative); Leukocyte Esterase Urine Negative (Negative); Nitrite Urine Negative (Negative); Urine Blood Negative (Negative); Urine Ketones Trace mg/dL (Negative); Urine Protein Negative (Neg-Trace)
[2023-05-06 14:49] LABS: IDNOW Serial# 08D9AD1C; Strep A Nucleic Acid Negative (Negative)
[2023-05-06] MEDS: 0.9 % Sodium Chloride 1,857 ML 1857 ML IV (14:53)
[2023-05-06] MEDS: Piperacillin Sodium/Tazobactam 3.375 GM in 0.9 % Sodium Chloride 50 ML IV (14:54)
[2023-05-06] MEDS: Ibuprofen 600 MG TABLET PO (15:07)
[2023-05-06 15:17] LABS: Influenza A PCR NEGATIVE (Negative); Influenza B PCR NEGATIVE (Negative); Resp Syncy Virus RNA Qual PCR NEGATIVE (Negative); SARS COV2 PCR INHOUSE NEGATIVE (Negative)
--- NOTE | 2023-05-06 15:42 | PC.NURSE ---
first liter of fluids finished. second bag hung.
--- NOTE | 2023-05-06 17:09 | PHA.MEDREC ---
Pharmacy Consult ? Medication Reconciliation Pharmacy has completed the medication reconciliation. Patient's mom reports only ibuprofen. Karen Spann, IldaD
--- NOTE | 2023-05-06 17:44 | PM.IMHP ---
History of Present Illness Date of Service: 05/06/23 Chief Complaint: chest pain 23 year male with no signficant past medical history who was admitted to the hospital about a month ago after presenting with h fever, throat pain, chest pain. Work up with CT and echo showed mild pericardiarl effusion. 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 All work up and cultures were negative been negative. Cardiology saw him at that time and thought he could have pericarditis and this was treated with Motrin. He was discharged on 04/02/23 and has been doing well with all symptoms having resolved. 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 Ambulance was and he reportedly had atemperature of 101. Work up here with CXR, CT of abdomen and pelvis is negative, WBC is 13 which lower than when he was discharged the last time. At this time, he has mild chest pain and no back pain Review of Systems Review of Systems: Gen: + fever Resp: no sob, no cough CV: + chest, no RAMIREZ, no leg edema GI: No n/v, no abd pain Neuro: No confusion [facility] Medical History History of left above knee amputation (~09/10/20) No pertinent past medical history Surgical History No pertinent past surgical history Social History Household Members: Spouse Housing: Apartment Do you presently have visiting nurse or other home services: No Alcohol intake: never Patient Tobacco Use Status: Never used Tobacco Smoked in Last 30 Days: No Patient Interested in Nicotine Replacement: No Use of substances other than those prescribed or required for medical reasons: No Advance Directives: No Advance Directives Information Provided: No Advance Directives on File: No service: No Meds Allergies Allergy/AdvReac Type Severity Reaction Status Date / Time No Known Allergies Allergy Verified 05/06/23 13:31 Home Medications Medication Instructions Recorded Confirmed Last Taken Type ibuprofen 200 mg tablet 400 mg PO Q6H PRN Pain 05/06/23 05/06/23 Unknown History Physical Exam Vital Signs and Narrative: Vital Signs: Last Vital Signs Temp 99.1 F 05/06/23 17:27 Pulse 78 05/06/23 17:27 Resp 19 05/06/23 17:27 BP 94/53 L 05/06/23 17:27 Pulse Ox 98 05/06/23 17:27 O2 Del Method Room Air 05/06/23 17:27 BMI result Body Mass Index 20.2 Const: Other: Constitutional: Alert, in no distress, thin built Mental Status: Oriented to person, place and time. Eyes: Pupils are equal, round and reactive to light. Ear, Nose and Throat: Oropharynx clear, mucous membranes moist. Respiratory: Clear to auscultation. No wheezing, rales or rhonchi. Cardiovascular: S1 S2 regular. No murmurs, rubs or gallops. Gastrointestinal: Abdomen soft, non-tender, non-distended. Normal bowel sounds.? Neurologic: Cranial nerves II-XII grossly intact. No focal neurological deficits. Moves all extremities spontaneously.? Skin: No rashes or lesions.? Musculoskeletal: No cyanosis or clubbing. Psychiatric: Normal mood and affect? Results Labs 05/06/23 14:00 05/06/23 14:00 Labs: Laboratory Results - last 24 hr 05/06/23 05/06/23 05/06/23 14:00 14:00 14:00 MCV 83.2 MCH 28.5 MCHC 34.2 RDW 13.7 Plt Count 180 MPV 10.8 Immature Gran % (Auto) 0.3 Neut % (Auto) 89.8 H Lymph % (Auto) 5.0 L [place] % (Auto) 4.6 Eos % (Auto) 0.1 Baso % (Auto) 0.2 Lymph # (Auto) 0.7 L [place] # (Auto) 0.6 Eos # (Auto) 0.0 Baso # (Auto) 0.0 Abs Immat Gran (auto) 0.04 H Absolute Neuts (auto) 12.0 H Absolute Nucleated RBC 0.000 Nucleated RBC % (auto) 0.0 Anion Gap 12 Estim Creat Clear Calc 108.1 Estimated GFR > 60 Random Glucose 99 Lactic Acid 0.7 Calcium 9.1 Total Bilirubin 1.2 H Direct Bilirubin 0.4 AST 22 ALT 9 Alkaline Phosphatase 74 Total Protein 8.2 H Albumin 4.5 Lipase 26 Urine Color Urine Appearance Urine pH Ur Specific [place] Urine Protein Urine Glucose (UA) Urine Ketones Urine Blood Urine Nitrite Ur Leukocyte Esterase COVID-19 ([facility]) COVID-19 Clin Com Influenza Type A (PCR) Influenza Type B (PCR) RSV RNA Qual (PCR) SARS-CoV-2 RNA (RT-PCR) S. pyogenes GrpA PREMA 05/06/23 05/06/23 05/06/23 14:00 14:25 14:25 MCV MCH MCHC RDW Plt Count MPV Immature Gran % (Auto) Neut % (Auto) Lymph % (Auto) [place] % (Auto) Eos % (Auto) Baso % (Auto) Lymph # (Auto) [place] # (Auto) Eos # (Auto) Baso # (Auto) Abs Immat Gran (auto) Absolute Neuts (auto) Absolute Nucleated RBC Nucleated RBC % (auto) Anion Gap Estim Creat Clear Calc Estimated GFR Random Glucose Lactic Acid Calcium Total Bilirubin Direct Bilirubin AST ALT Alkaline Phosphatase Total Protein Albumin Lipase Urine Color Yellow Urine Appearance Clear Urine pH 7.0 Ur Specific [place] 1.010 Urine Protein Negative Urine Glucose (UA) Negative Urine Ketones Trace Urine Blood Negative Urine Nitrite Negative Ur Leukocyte Esterase Negative COVID-19 ([facility]) Negative COVID-19 Clin Com See Note Influenza Type A (PCR) NEGATIVE Influenza Type B (PCR) NEGATIVE RSV RNA Qual (PCR) NEGATIVE SARS-CoV-2 RNA (RT-PCR) NEGATIVE S. pyogenes GrpA PREMA 05/06/23 14:31 MCV MCH MCHC RDW Plt Count MPV Immature Gran % (Auto) Neut % (Auto) Lymph % (Auto) [place] % (Auto) Eos % (Auto) Baso % (Auto) Lymph # (Auto) [place] # (Auto) Eos # (Auto) Baso # (Auto) Abs Immat Gran (auto) Absolute Neuts (auto) Absolute Nucleated RBC Nucleated RBC % (auto) Anion Gap Estim Creat Clear Calc Estimated GFR Random Glucose Lactic Acid Calcium Total Bilirubin Direct Bilirubin AST ALT Alkaline Phosphatase Total Protein Albumin Lipase Urine Color Urine Appearance Urine pH Ur Specific [place] Urine Protein Urine Glucose (UA) Urine Ketones Urine Blood Urine Nitrite Ur Leukocyte Esterase COVID-19 ([facility]) COVID-19 Clin Com Influenza Type A (PCR) Influenza Type B (PCR) RSV RNA Qual (PCR) SARS-CoV-2 RNA (RT-PCR) S. pyogenes GrpA PREMA Negative Imaging Radiologist's Impressions: Impressions Chest X-Ray 05/06/23 14:43 IMPRESSION: No acute cardiopulmonary disease. Abdomen/Pelvis CT 05/06/23 15:02 IMPRESSION: 1. Unremarkable noncontrast CT the abdomen and pelvis. In particular, no calculi or obstructive uropathy is evident. Fleischner guidelines were followed. Assessment and Plan (1) Recurrent fever of unknown etiology: Status: Acute Plan 23 year old male with fever, back pain, slight increase in WBC, nl ua, etiology of symptoms unclear plan: observe, follow on culture, repeat echo tomorrorow if fever returns consult id, hold further antibiotics, check crp/esr, deonna chest pain, rule out recurrent pericarditis low risk for dvt, ambulate Time Spent With Patient Time: Total time managing care of this patient today ____ minutes. Quality Stroke Does the patient have a stroke diagnosis?: No VTE Prior VTE?: No VTE Risk Level:: Medical - low VTE Device Contraindication: Treatment Not Indicated VTE Drug Contraindication: Treatment Not Indicated
[2023-05-06] MEDS: Dextrose 5 % and 0.45 % NaCl 1,000 ML 100 ML IVCONT (20:28)
--- NOTE | 2023-05-06 21:31 | PC.NURSE ---
report to Marry ALVARADO for continued care.
[2023-05-07] MEDS: Acetaminophen 325 MG TABLET 650 MG PO ×3 (00:09→20:38)
[2023-05-07 02:57] VITALS: BP 100/50; PULSE 90; RESP 17; TEMP 36.7; O2SAT 98
[2023-05-07] MEDS: Dextrose 5 % and 0.45 % NaCl 1,000 ML 100 ML IVCONT ×2 (06:12→18:04)
[2023-05-07 07:42] VITALS: BP 106/56; PULSE 103; RESP 20; TEMP 38.3; O2SAT 98
--- NOTE | 2023-05-07 08:21 | MHC.CM.PN ---
CM met with Patient and his Girlfriend at bedside and addressed [place] with them, providing Patient with the original and placing a copy on the chart. Patient lives in a townhouse with his Girlfriend and 3 children, ages 1,3,and 15 years of age. Patient is functionally independent and working; home/self care is the goal. CM has initiated and will follow for dc planning. Patient is working with [address]/[place] offices to establish himself with a PCP.
--- NOTE | 2023-05-07 09:12 | P.PNIM_ITS ---
Subjective Subjective Date of Service: 05/07/23 Physical Exam Vital Signs: Vital Signs: Last Vital Signs Temp 101.0 F H 05/07/23 07:42 Pulse 103 H 05/07/23 07:42 Resp 20 05/07/23 07:42 BP 106/56 L 05/07/23 07:42 Pulse Ox 98 05/07/23 07:42 O2 Del Method Room Air 05/07/23 07:42 BMI result Body Mass Index 20.9 Objective Data Active Medications Acetaminophen (Acetaminophen Supp 650 Mg Supp.Rect) 650 mg OK Q6H PRN PRN Reason: Pain, Mild (Pain Scale 1-3) Acetaminophen (Acetaminophen 325 Mg Tablet) 650 mg PO Q4H PRN PRN Reason: Pain, Mild (Pain Scale 1-3) Last Admin: 05/07/23 07:51 Dose: 650 mg Documented By: PUNEET Dextrose/Sodium Chloride (D51/2ns) 1,000 mls @ 100 mls/hr IVCONT .Q10H COUNT INCLUDES THE [facility] Last Admin: 05/07/23 06:12 Dose: 100 mls/hr Documented By: JUDY Melatonin (Melatonin 3 Mg Tablet) 6 mg PO BEDTIME PRN PRN Reason: Insomnia Ondansetron HCl (Ondansetron Hcl 4 Mg/2 Ml Vial) 4 mg IVPUSH Q8H PRN PRN Reason: Nausea and Vomiting Sodium Chloride (0.9 % Sodium Chloride Flush 3 Ml Syringe) 3 ml IVFLUSH QSHIFT COUNT INCLUDES THE [facility] Last Admin: 05/07/23 00:14 Dose: Not Given Documented By: JUDY Non-Admin Reason: IV Running Labs 05/06/23 14:00 05/06/23 14:00 Labs: Laboratory Results - last 24 hr 05/06/23 05/06/23 05/06/23 14:00 14:00 14:00 MCV 83.2 MCH 28.5 MCHC 34.2 RDW 13.7 Plt Count 180 MPV 10.8 Immature Gran % (Auto) 0.3 Neut % (Auto) 89.8 H Lymph % (Auto) 5.0 L [place] % (Auto) 4.6 Eos % (Auto) 0.1 Baso % (Auto) 0.2 Lymph # (Auto) 0.7 L [place] # (Auto) 0.6 Eos # (Auto) 0.0 Baso # (Auto) 0.0 Abs Immat Gran (auto) 0.04 H Absolute Neuts (auto) 12.0 H Absolute Nucleated RBC 0.000 Nucleated RBC % (auto) 0.0 Anion Gap 12 Estim Creat Clear Calc 108.1 Estimated GFR > 60 Random Glucose 99 Lactic Acid 0.7 Calcium 9.1 Total Bilirubin 1.2 H Direct Bilirubin 0.4 AST 22 ALT 9 Alkaline Phosphatase 74 Total Protein 8.2 H Albumin 4.5 Lipase 26 Urine Color Urine Appearance Urine pH Ur Specific [place] Urine Protein Urine Glucose (UA) Urine Ketones Urine Blood Urine Nitrite Ur Leukocyte Esterase COVID-19 ([facility]) COVID-19 Clin Com Influenza Type A (PCR) Influenza Type B (PCR) RSV RNA Qual (PCR) SARS-CoV-2 RNA (RT-PCR) S. pyogenes GrpA PREMA 05/06/23 05/06/23 05/06/23 14:00 14:25 14:25 MCV MCH MCHC RDW Plt Count MPV Immature Gran % (Auto) Neut % (Auto) Lymph % (Auto) [place] % (Auto) Eos % (Auto) Baso % (Auto) Lymph # (Auto) [place] # (Auto) Eos # (Auto) Baso # (Auto) Abs Immat Gran (auto) Absolute Neuts (auto) Absolute Nucleated RBC Nucleated RBC % (auto) Anion Gap Estim Creat Clear Calc Estimated GFR Random Glucose Lactic Acid Calcium Total Bilirubin Direct Bilirubin AST ALT Alkaline Phosphatase Total Protein Albumin Lipase Urine Color Yellow Urine Appearance Clear Urine pH 7.0 Ur Specific [place] 1.010 Urine Protein Negative Urine Glucose (UA) Negative Urine Ketones Trace Urine Blood Negative Urine Nitrite Negative Ur Leukocyte Esterase Negative COVID-19 ([facility]) Negative COVID-19 Clin Com See Note Influenza Type A (PCR) NEGATIVE Influenza Type B (PCR) NEGATIVE RSV RNA Qual (PCR) NEGATIVE SARS-CoV-2 RNA (RT-PCR) NEGATIVE S. pyogenes GrpA PREMA 05/06/23 14:31 MCV MCH MCHC RDW Plt Count MPV Immature Gran % (Auto) Neut % (Auto) Lymph % (Auto) [place] % (Auto) Eos % (Auto) Baso % (Auto) Lymph # (Auto) [place] # (Auto) Eos # (Auto) Baso # (Auto) Abs Immat Gran (auto) Absolute Neuts (auto) Absolute Nucleated RBC Nucleated RBC % (auto) Anion Gap Estim Creat Clear Calc Estimated GFR Random Glucose Lactic Acid Calcium Total Bilirubin Direct Bilirubin AST ALT Alkaline Phosphatase Total Protein Albumin Lipase Urine Color Urine Appearance Urine pH Ur Specific [place] Urine Protein Urine Glucose (UA) Urine Ketones Urine Blood Urine Nitrite Ur Leukocyte Esterase COVID-19 ([facility]) COVID-19 Clin Com Influenza Type A (PCR) Influenza Type B (PCR) RSV RNA Qual (PCR) SARS-CoV-2 RNA (RT-PCR) S. pyogenes GrpA PREMA Negative Assessment and Plan Time Spent With Patient Time: Total time managing care of this patient today ____ minutes. Quality Stroke Does the patient have a stroke diagnosis?: No VTE Prior VTE?: No VTE Risk Level:: Medical - low VTE Device Contraindication: Treatment Not Indicated VTE Drug Contraindication: Treatment Not Indicated
[2023-05-07 09:56] VITALS: TEMP 37
[2023-05-07 10:15] LABS: Hematocrit 39.2 % (42.0-52.0); Hemoglobin 13.2 g/dl (14.0-18.0); Mean Corpuscular HGB Conc 33.7 g/dl (31.0-36.0); Mean Corpuscular Hemoglobin 28.4 pg (27.0-33.0); Mean Corpuscular Volume 84.5 fL (80.0-98.0); Mean Platelet Volume 11.1 fL (9.4-12.4); Platelet Count 186 X10*3/uL (160-400); Red Blood Count 4.64 X10*6/uL (4.60-5.80); Red Cell Distribution Width 13.8 % (11.0-16.0)
[2023-05-07 10:27] LABS: C Reactive Protein 5.52 mg/dL (< or = 0.50)
--- NOTE | 2023-05-07 10:28 | P.CONCA_ITS ---
History of Present Illness History of Present Illness Date of Service: 05/07/23 Requesting physician: [facility] Consult reason: chest pain Chief complaint: fever Narrative: I was consulted to see Edwin was admitted about a month ago to the hospital with severe fever, sore throat and chest and back pain with significantly elevated cardiac markers and findings suggestive of myopericarditis. His LV systolic function was preserved. He had no other obvious etiology of infection. He was then treated with IV Profen and was supposed to be treated with colchicine as well. However on discharge he was not given colchicine. Patient took it appears to be 2 weeks of ibuprofen. He then follow-up with Cardiology and was not prescribed colchicine as well. Patient has been having intermittent chest discomfort for some time but came to the hospital again because his pain got worse radiating to back similar to the last time. He also has noted to have fever. The pain is worse with deep breathing. He has mild leukocytosis. Cultures have been drawn but no results are pending. CRP just came back as elevated in the 5 range. Patient continues to have chest pain. Review of Systems Constitutional: Constitutional: Denies body ache(s) and Reports fever(s) Eyes: Eyes: Reports no additional eye complaints Cardiovascular: Cardiovascular: Reports chest pain Respiratory: Respiratory: Reports pain on inspiration Gastrointestinal: Gastrointestinal: Reports no additional gastrointestinal complaints Genitourinary: Genitourinary: Reports no additional male genitourinary complaints Musculoskeletal: Musculoskeletal: Reports no additional musculoskeletal complaints Neurologic: Reports system reviewed and no additional complaints, except as documented PMFSH Past Medical History Medical History History of left above knee amputation (~09/10/20) No pertinent past medical history Surgical History Surgical History No pertinent past surgical history Social History Social History Household Members: Spouse Housing: Apartment Do you presently have visiting nurse or other home services: No Alcohol intake: never Patient Tobacco Use Status: Never used Tobacco Smoked in Last 30 Days: No Patient Interested in Nicotine Replacement: No Use of substances other than those prescribed or required for medical reasons: No Advance Directives: No Advance Directives Information Provided: No Advance Directives on File: No service: No Meds Allergies Allergy/AdvReac Type Severity Reaction Status Date / Time No Known Allergies Allergy Verified 05/06/23 13:31 Active Medications: Current Medications Acetaminophen (Acetaminophen Supp 650 Mg Supp.Rect) 650 mg DC Q6H PRN PRN Reason: Pain, Mild (Pain Scale 1-3) Acetaminophen (Acetaminophen 325 Mg Tablet) 650 mg PO Q4H PRN PRN Reason: Pain, Mild (Pain Scale 1-3) Last Admin: 05/07/23 07:51 Dose: 650 mg Dextrose/Sodium Chloride (D51/2ns) 1,000 mls @ 100 mls/hr IVCONT .Q10H [facility] Last Admin: 05/07/23 06:12 Dose: 100 mls/hr Melatonin (Melatonin 3 Mg Tablet) 6 mg PO BEDTIME PRN PRN Reason: Insomnia Ondansetron HCl (Ondansetron Hcl 4 Mg/2 Ml Vial) 4 mg IVPUSH Q8H PRN PRN Reason: Nausea and Vomiting Sodium Chloride (0.9 % Sodium Chloride Flush 3 Ml Syringe) 3 ml IVFLUSH QSHIFT [facility] Last Admin: 05/07/23 00:14 Dose: Not Given Home Medications Medication Instructions Recorded Confirmed Last Taken Type ibuprofen 200 mg tablet 400 mg PO Q6H PRN Pain 05/06/23 05/06/23 Unknown History Physical Exam Vital Signs: Vital Signs: Last Vital Signs Temp 98.6 F 05/07/23 09:56 Pulse 103 H 05/07/23 07:42 Resp 20 05/07/23 07:42 BP 106/56 L 05/07/23 07:42 Pulse Ox 98 05/07/23 07:42 O2 Del Method Room Air 05/07/23 07:42 BMI result Body Mass Index 20.9 Const: General: cooperative, comfortable, no acute distress, alert and awake Nutritional Appearance: thin Orientation/consciousness: patient oriented x3 Limitations: no limitations HEENT: Head: Yes normocephalic and Yes atraumatic Neck: Neck: Yes trachea midline, Yes supple and Yes no JVD Resp: Effort & Inspection: normal respiratory effort Auscultation: clear to auscultation bilaterally GI: Auscultation: normal bowel sounds Skin: General skin exam: no rashes or lesions noted Neuro: General: patient oriented x3 and no focal motor deficits Extrem: General: Yes no clubbing, cyanosis or edema Objective Labs and Meds 05/07/23 10:01 05/06/23 14:00 Lab results: Laboratory Results - last 24 hr 05/06/23 05/06/23 05/06/23 14:00 14:00 14:00 WBC 13.3 H RBC 5.06 Hgb 14.4 Hct 42.1 MCV 83.2 MCH 28.5 MCHC 34.2 RDW 13.7 Plt Count 180 MPV 10.8 Immature Gran % (Auto) 0.3 Neut % (Auto) 89.8 H Lymph % (Auto) 5.0 L [place] % (Auto) 4.6 Eos % (Auto) 0.1 Baso % (Auto) 0.2 Lymph # (Auto) 0.7 L [place] # (Auto) 0.6 Eos # (Auto) 0.0 Baso # (Auto) 0.0 Abs Immat Gran (auto) 0.04 H Absolute Neuts (auto) 12.0 H Absolute Nucleated RBC 0.000 Nucleated RBC % (auto) 0.0 Sodium 134 L Potassium 4.0 D Chloride 100 Carbon Dioxide 26 Anion Gap 12 BUN 8 L Creatinine 0.93 Estim Creat Clear Calc 108.1 Estimated GFR > 60 Random Glucose 99 Lactic Acid Calcium 9.1 Total Bilirubin 1.2 H Direct Bilirubin 0.4 AST 22 ALT 9 Alkaline Phosphatase 74 Troponin I High Sens 8.7 D C-Reactive Protein Total Protein 8.2 H Albumin 4.5 Lipase 26 Urine Color Urine Appearance Urine pH Ur Specific [place] Urine Protein Urine Glucose (UA) Urine Ketones Urine Blood Urine Nitrite Ur Leukocyte Esterase COVID-19 ([facility]) COVID-19 Clin Com Influenza Type A (PCR) Influenza Type B (PCR) RSV RNA Qual (PCR) SARS-CoV-2 RNA (RT-PCR) S. pyogenes GrpA PREMA 05/06/23 05/06/23 05/06/23 14:00 14:00 14:25 WBC RBC Hgb Hct MCV MCH MCHC RDW Plt Count MPV Immature Gran % (Auto) Neut % (Auto) Lymph % (Auto) [place] % (Auto) Eos % (Auto) Baso % (Auto) Lymph # (Auto) [place] # (Auto) Eos # (Auto) Baso # (Auto) Abs Immat Gran (auto) Absolute Neuts (auto) Absolute Nucleated RBC Nucleated RBC % (auto) Sodium Potassium Chloride Carbon Dioxide Anion Gap BUN Creatinine Estim Creat Clear Calc Estimated GFR Random Glucose Lactic Acid 0.7 Calcium Total Bilirubin Direct Bilirubin AST ALT Alkaline Phosphatase Troponin I High Sens C-Reactive Protein Total Protein Albumin Lipase Urine Color Urine Appearance Urine pH Ur Specific [place] Urine Protein Urine Glucose (UA) Urine Ketones Urine Blood Urine Nitrite Ur Leukocyte Esterase COVID-19 ([facility]) Negative COVID-19 Clin Com See Note Influenza Type A (PCR) NEGATIVE Influenza Type B (PCR) NEGATIVE RSV RNA Qual (PCR) NEGATIVE SARS-CoV-2 RNA (RT-PCR) NEGATIVE S. pyogenes GrpA PREMA 05/06/23 05/06/23 05/07/23 14:25 14:31 10:00 WBC RBC Hgb Hct MCV MCH MCHC RDW Plt Count MPV Immature Gran % (Auto) Neut % (Auto) Lymph % (Auto) [place] % (Auto) Eos % (Auto) Baso % (Auto) Lymph # (Auto) [place] # (Auto) Eos # (Auto) Baso # (Auto) Abs Immat Gran (auto) Absolute Neuts (auto) Absolute Nucleated RBC Nucleated RBC % (auto) Sodium Potassium Chloride Carbon Dioxide Anion Gap BUN Creatinine Estim Creat Clear Calc Estimated GFR Random Glucose Lactic Acid Calcium Total Bilirubin Direct Bilirubin AST ALT Alkaline Phosphatase Troponin I High Sens C-Reactive Protein 5.52 H Total Protein Albumin Lipase Urine Color Yellow Urine Appearance Clear Urine pH 7.0 Ur Specific [place] 1.010 Urine Protein Negative Urine Glucose (UA) Negative Urine Ketones Trace Urine Blood Negative Urine Nitrite Negative Ur Leukocyte Esterase Negative COVID-19 ([facility]) COVID-19 Clin Com Influenza Type A (PCR) Influenza Type B (PCR) RSV RNA Qual (PCR) SARS-CoV-2 RNA (RT-PCR) S. pyogenes GrpA PREMA Negative 05/07/23 10:01 WBC 14.0 H RBC 4.64 Hgb 13.2 L Hct 39.2 L MCV 84.5 MCH 28.4 MCHC 33.7 RDW 13.8 Plt Count 186 MPV 11.1 Immature Gran % (Auto) Neut % (Auto) Lymph % (Auto) [place] % (Auto) Eos % (Auto) Baso % (Auto) Lymph # (Auto) [place] # (Auto) Eos # (Auto) Baso # (Auto) Abs Immat Gran (auto) Absolute Neuts (auto) Absolute Nucleated RBC 0.000 Nucleated RBC % (auto) 0.0 Sodium Potassium Chloride Carbon Dioxide Anion Gap BUN Creatinine Estim Creat Clear Calc Estimated GFR Random Glucose Lactic Acid Calcium Total Bilirubin Direct Bilirubin AST ALT Alkaline Phosphatase Troponin I High Sens C-Reactive Protein Total Protein Albumin Lipase Urine Color Urine Appearance Urine pH Ur Specific [place] Urine Protein Urine Glucose (UA) Urine Ketones Urine Blood Urine Nitrite Ur Leukocyte Esterase COVID-19 ([facility]) COVID-19 Clin Com Influenza Type A (PCR) Influenza Type B (PCR) RSV RNA Qual (PCR) SARS-CoV-2 RNA (RT-PCR) S. pyogenes GrpA PREMA EKG shows sinus tachycardia with incomplete right bundle-branch block Imaging Radiologist's impression: Impressions Chest X-Ray 05/06/23 14:43 IMPRESSION: No acute cardiopulmonary disease. Abdomen/Pelvis CT 05/06/23 15:02 IMPRESSION: 1. Unremarkable noncontrast CT the abdomen and pelvis. In particular, no calculi or obstructive uropathy is evident. Fleischner guidelines were followed. 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 Would treat him with ibuprofen 800 mg q.8 hours for 2 weeks and colchicine 0.5 mg b.i.d. for 6 months. He should also get GI prophylaxis. I would also request ID consult to be sure that he does have recurrent infectious etiology but this appears to be more of an inflammatory reaction. Continue supportive care. Treat fever aggressively given that he has prior Brugada pattern on the EKG. Troponins are within normal range this time and there is no myocardial involvement. Once his pain is better controlled he can potentially be discharged home. Will follow up in the clinic Time Spent With Patient Time: Total time managing care of this patient today ____ minutes. Procedures Date of Service Date of Service: 05/07/23
[2023-05-07 10:53] LABS: Erythrocyte Sedimentation Rate 8 MM/HR (0-15)
[2023-05-07 11:31] VITALS: BP 109/55; PULSE 82; RESP 20; TEMP 37.3; O2SAT 99
[2023-05-07] MEDS: 0.9 % Sodium Chloride Flush 3 ML SYRINGE IVFLUSH ×2 (11:59→18:04)
--- NOTE | 2023-05-07 15:10 | W.PM.IDCN ---
History of Present Illness Data of Consult Service Date: 05/07/23 Requesting physician: Amaury Hernandez Primary Care Provider: None Physician HPI Reason for consult: fever of unknown origin I saw him in March for similar symptoms. 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 He also had temperature of 101. He has no diarrhea,nausea,vomiting or joint pain or swelling. Review of Systems Review of Systems: Yes all other systems are reviewed and are negative [facility] Past Medical History Medical History History of left above knee amputation (~09/10/20) No pertinent past medical history Family History Family history: reviewed and not pertinent Surgical History Surgical History No pertinent past surgical history Social History Social History Household Members: Spouse Housing: Apartment Do you presently have visiting nurse or other home services: No Alcohol intake: never Patient Tobacco Use Status: Never used Tobacco Smoked in Last 30 Days: No Patient Interested in Nicotine Replacement: No Use of substances other than those prescribed or required for medical reasons: No Advance Directives: No Advance Directives Information Provided: No Advance Directives on File: No service: No Meds Allergies Allergy/AdvReac Type Severity Reaction Status Date / Time No Known Allergies Allergy Verified 05/06/23 13:31 Active Medications: Current Medications Acetaminophen (Acetaminophen Supp 650 Mg Supp.Rect) 650 mg ID Q6H PRN PRN Reason: Pain, Mild (Pain Scale 1-3) Acetaminophen (Acetaminophen 325 Mg Tablet) 650 mg PO Q4H PRN PRN Reason: Pain, Mild (Pain Scale 1-3) Last Admin: 05/07/23 07:51 Dose: 650 mg Dextrose/Sodium Chloride (D51/2ns) 1,000 mls @ 100 mls/hr IVCONT .Q10H [facility] Last Admin: 05/07/23 06:12 Dose: 100 mls/hr Melatonin (Melatonin 3 Mg Tablet) 6 mg PO BEDTIME PRN PRN Reason: Insomnia Ondansetron HCl (Ondansetron Hcl 4 Mg/2 Ml Vial) 4 mg IVPUSH Q8H PRN PRN Reason: Nausea and Vomiting Sodium Chloride (0.9 % Sodium Chloride Flush 3 Ml Syringe) 3 ml IVFLUSH QSHIFT [facility] Last Admin: 05/07/23 11:59 Dose: 3 ml Home Medications Medication Instructions Recorded Confirmed Last Taken Type ibuprofen 200 mg tablet 400 mg PO Q6H PRN Pain 05/06/23 05/06/23 Unknown History Physical Exam Vital Signs: Vital Signs: Last Vital Signs Temp 99.1 F 05/07/23 11:31 Pulse 82 05/07/23 11:31 Resp 20 05/07/23 11:31 BP 109/55 L 05/07/23 11:31 Pulse Ox 99 05/07/23 11:31 O2 Del Method Room Air 05/07/23 11:31 BMI result Body Mass Index 20.9 Const: General: cooperative HEENT: Head: Yes normal to inspection Face and sinus: Yes normal facial exam Mouth: Normal oral and palatal mucosa present Teeth and gingiva: dentition normal Eyes: General: appearance normal, both eyes and all related structures Pupils: Equal, round and reactive pupils present Resp: Effort & Inspection: normal respiratory effort Cardio: Rate: regular rate Rhythm: regular rhythm GI: Palpation (GI): Soft to palpation and nontender : General: Yes no CVA tenderness Back/Spine/Pelvis: Back: no CVA tenderness Skin: General skin exam: no rashes or lesions noted Neuro: General: moves all extremities Cranial nerves: Yes Equal, round and reactive pupils present Extrem: Other: congenital lower limb disorder,prosthesis General: Yes normal to inspection Psych: Appearance: grossly normal Results Labs 05/07/23 10:01 05/06/23 14:00 Labs: Short CBC 05/07/23 Range/Units 10:01 WBC 14.0 H (4.8-10.8) X10*3/uL Hgb 13.2 L (14.0-18.0) g/dl Hct 39.2 L (42.0-52.0) % Plt Count 186 (160-400) X10*3/uL Assessment and Plan (1) Recurrent fever of unknown etiology: Status: Acute He has possible fever from autoimmune disorder as no infection is apparent. ?Takayasu arteritis He had mildly elevated ESR last visit. Plan Check ESR. Check PAGE and Rheumatoid factor Rheumatology referral if abnormal as outpatient. Time Spent With Patient Time: Total time managing care of this patient today ____ minutes.
[2023-05-07 15:29] VITALS: BP 112/62; PULSE 90; RESP 20; TEMP 37.3; O2SAT 100
[2023-05-07 15:56] LABS: Rheumatoid Factor < 13.0 IU/mL (<15.0)
[2023-05-07 16:22] LABS: Erythrocyte Sedimentation Rate 12 MM/HR (0-15)
[2023-05-07 19:05] VITALS: BP 119/70; PULSE 92; RESP 16; TEMP 37.7; O2SAT 97
[2023-05-07] MEDS: Throat Spray, Medicated 177 ML BOTTLE 1 SPRAY MUCOUS MEM (21:43)
[2023-05-07] MEDS: Melatonin 3 MG TABLET 6 MG PO (22:07)
[2023-05-08] VITALS: BP 107/58; PULSE 70; RESP 16; TEMP 36.8; O2SAT 99
[2023-05-08 07:28] VITALS: BP 111/63; PULSE 73; RESP 16; TEMP 37.1; O2SAT 100
--- NOTE | 2023-05-08 08:57 | P.DS_ITS ---
DS: Providers Provider Date of Service: 05/08/23 Date of admission: 05/06/23 20:00 Primary care physician: None Physician Consults: 05/07/23 07:38 Consult to Cardiology Routine Consulting [place] [facility] Reason for consultation: Pericarditis Has provider been notified: No 05/07/23 08:54 Consult to Infectious Diseases Routine Consulting [place] [facility] Reason for consultation: FUO Has provider been notified: No DS: Diagnosis Discharge Diagnosis (1) Recurrent fever of unknown etiology: Status: Acute DS: Summary Hospital Course Hospital Course: Chief Complaint: chest pain 23? year male with no signficant past medical history who was admitted to the hospital about a month ago after presenting with h fever, throat pain, chest pain. Work up with CT and echo showed mild pericardiarl effusion. 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 All work up and cultures were negative been negative. Cardiology saw him at that time and thought he could have pericarditis and this was treated with Motrin. He was discharged on 04/02/23 and has been doing well with all symptoms having resolved. 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 Ambulance was and he reportedly had atemperature of 101. Work up here with CXR, CT of abdomen and pelvis is negative, WBC is 13 which lower than when he was discharged the last time.? At this time, he has mild chest pain and no back pain Hospital course:Patient presented with chest pain and fever similar to last episode when he was treated for acute pericarditis and this seems to be a recurent episodes, there is no clinical evidence of infection, despite eleveated wbc and fever, cultures have negative. He was seen by cardiology with recommendation to treat him with ibuprofen 800 mg q.8 hours for 2 weeks and colchicine 0.5 mg b.i.d. for 6 months.? He should also get GI prophylaxis. , Infectious disease saw him with recomendation to check ESR which is 12 only , CRP is 5.52, last visit it was 19. RF is normal, PAGE is pending. We recommend outpatient rheumatology follow up and work up . Time Spent with Patient Time attestation: Total time managing care of this patient today ____ minutes. Discharge coordination time: Greater than 30 minutes Quality: Safe Use of Opioids Does Pt have an Active Cancer Diagnosis on the Problem List?: No Quality: Stroke Does the patient have a stroke diagnosis?: No Physical Exam Vital Signs: Vital Signs: Last Vital Signs Temp 98.8 F 05/08/23 07:28 Pulse 73 05/08/23 07:28 Resp 16 05/08/23 07:28 BP 111/63 05/08/23 07:28 Pulse Ox 100 05/08/23 07:28 O2 Del Method Room Air 05/08/23 07:28 BMI result Body Mass Index 20.9 Const: Other: General: AO X 3, no acute distress Resp: CTA bilateral CVS: S1,S2,RRR GI: +BS, NT, no distention Skin: No rash Neuro: motor grossly intact Psych: appropriate affect DS: Data Data Completed and Pending Labs on day of discharge: Laboratory Results - last 24 hr 05/07/23 05/07/23 05/07/23 10:00 10:00 10:01 WBC 14.0 H RBC 4.64 Hgb 13.2 L Hct 39.2 L MCV 84.5 MCH 28.4 MCHC 33.7 RDW 13.8 Plt Count 186 MPV 11.1 Absolute Nucleated RBC 0.000 Nucleated RBC % (auto) 0.0 ESR 8 C-Reactive Protein 5.52 H Rheumatoid Factor 05/07/23 05/07/23 15:33 15:33 WBC RBC Hgb Hct MCV MCH MCHC RDW Plt Count MPV Absolute Nucleated RBC Nucleated RBC % (auto) ESR 12 C-Reactive Protein Rheumatoid Factor < 13.0 Preliminary micro results at discharge 05/06/23 14:00 Blood Culture - Preliminary Blood - Venous No growth after 24 hours. 05/06/23 14:00 Blood Culture - Preliminary Blood - Venous No growth after 24 hours. Discharge Plan Discharge Anticipated Discharge Date/Time: 05/08/23 08:54 Patient Disposition: Home, Self-Care Discharge Diagnosis: REcurrent fever, Pericarditis Referrals: Physician,None [Primary Care Provider] - 1 Week Discharge Medications: Continued ibuprofen 200 mg Tablet 400 mg PO Q6H PRN (Reason: Pain) Discharge Orders: Discharge Order (Routine); Ordered 05/08/23 Ordered By: Amaury Mlapah Diet: Advance to usual diet Activity on Discharge: As tolerated Stand Alone Forms: Patient Portal Discharge page Care Plan Goals: Resolution of percarditis and fever Health Concerns: recurent fever and pericarditis Plan of Treatment: Take Motrin as recommended Take Colchicine as recommended Follow up with your Doctor in a week, Ask your Doctor to refer you to a urban gardening specialist Assessment: as above
[2023-05-08 11:03] VITALS: BP 114/64; PULSE 96; RESP 18; TEMP 37; O2SAT 99
[2023-05-08] MEDS: Acetaminophen 325 MG TABLET 650 MG PO (11:19)
[2023-05-08] MEDS: Dextrose 5 % and 0.45 % NaCl 1,000 ML 100 ML IVCONT (11:22)
[2023-05-08] MEDS: 0.9 % Sodium Chloride Flush 3 ML SYRINGE IVFLUSH (11:22)
[2023-05-08] MEDS: Colchicine 0.6 MG TABLET PO (12:17)
[2023-05-08] MEDS: Ibuprofen 800 MG TABLET PO (12:17)
--- NOTE | 2023-05-08 12:17 | PM.PNCARD ---
Subjective Subjective Date of Service: 05/08/23 Principal diagnosis: Recurrent pericarditis Interval history: Patient has not had any fever on Tylenol. Also pain is improved but not completely gone. Has pain with inspiration. Has not received colchicine or ibuprofen since yesterday Review of Systems Constitutional: Reports no additional constitutional complaints and Denies fever(s) Cardiovascular: Reports chest pain Respiratory: Reports pain on inspiration Gastrointestinal: Reports no additional gastrointestinal complaints Musculoskeletal: Reports no additional musculoskeletal complaints Reports system reviewed and no additional complaints, except as documented Psychiatric: Reports no additional psychiatric complaints Physical Exam Vital Signs: Last Vital Signs Temp 98.6 F 05/08/23 11:03 Pulse 96 05/08/23 11:03 Resp 18 05/08/23 11:03 BP 114/64 05/08/23 11:03 Pulse Ox 99 05/08/23 11:03 O2 Del Method Room Air 05/08/23 11:03 BMI result Body Mass Index 20.9 Const General: cooperative, comfortable, no acute distress, alert and awake Nutritional Appearance: thin Orientation/consciousness: patient oriented x3 Limitations: no limitations Neck Neck: Yes trachea midline, Yes supple and Yes no JVD Resp Effort & Inspection: normal respiratory effort Auscultation: clear to auscultation bilaterally Skin General skin exam: no rashes or lesions noted Neuro General: patient oriented x3 Extrem General: Yes no clubbing, cyanosis or edema Objective Labs and Meds 05/07/23 10:01 05/06/23 14:00 Lab results: Laboratory Results - last 24 hr 05/07/23 05/07/23 15:33 15:33 ESR 12 Rheumatoid Factor < 13.0 Progress Note: A&P Assessment and plan (1) Pericarditis: Status: Acute Assessment and Plan: 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 Start ibuprofen 800 mg q.8 hours with GI prophylaxis for 2 weeks and colchicine 0.6 mg b.i.d. for 6 months. Patient can be discharged home. Will set up for outpatient follow-up. Time Spent With Patient Time: Total time managing care of this patient today ____ minutes. Progress Note: Quality Stroke Does the patient have a stroke diagnosis?: No Procedures Date of Service Date of Service: 05/08/23
[2023-05-08] MEDS: polyethylene glycoL 3350 17 GM POWD.PACK PO (12:35)
--- NOTE | 2023-05-09 09:43 | MHC.CM.PN ---
Pt was discharged home self-care yesterday, pts girlfriend transported him home.
[2023-05-12 15:24] LABS: Anti Nuclear Antibody Screen NEGATIVE (NEGATIVE)
[2023-05-12 16:43] LABS: Anti Nuclear Antibody Screen NEGATIVE (NEGATIVE)
== END 2023-05-08 17:41 | disposition home or self-care (01) ==
LOC: HO.ED 15:36 → HO.EDOVER 20:05 → HO.IMC 20:22
PROVIDERS: Internal Medicine; Admitting Provider Internal Medicine; Emergency Provider Emergency Medicine; Visit Provider Internal Medicine
DX: R50.9 Fever, unspecified (principal); R07.9 Chest pain, unspecified; I31.9 Disease of pericardium, unspecified; R00.0 Tachycardia, unspecified; I45.10 Unspecified right bundle-branch block; R10.9 Unspecified abdominal pain; Z20.822 Contact with and (suspected) exposure to COVID-19
CPT/HCPCS: 0241U; 36415; 71046; 74176; 80048; 80076; 81003; 83605; 83690; 84484; 85025; 85027; 85652; 86038; 86140; 86431; 87040; 87635; 87651; 93005; 96365; 96366; 99222; 99285; J2543

== ENCOUNTER → 2023-05-06 20:00 | Outpatient (BNV) | payer OTHER, SELFPAY | PROVIDERS: Admitting Provider Internal Medicine; Emergency Provider Emergency Medicine; Visit Provider Internal Medicine | DX: R50.9 Fever, unspecified (principal) | CPT/HCPCS: 99222 ==

== ENCOUNTER → 2023-05-06 20:00 | Outpatient (BNV) | payer OTHER, SELFPAY | PROVIDERS: Admitting Provider Internal Medicine; Emergency Provider Emergency Medicine; Visit Provider Internal Medicine Cardiovascular Disease | DX: I31.9 Disease of pericardium, unspecified (principal) | CPT/HCPCS: 99222; 99231 ==

== ENCOUNTER → 2023-05-06 20:00 | Outpatient (BNV) | payer OTHER, SELFPAY | PROVIDERS: Admitting Provider Internal Medicine; Emergency Provider Emergency Medicine; Visit Provider Internal Medicine | DX: R50.9 Fever, unspecified (principal) | CPT/HCPCS: 99222; 99232; 99239 ==

== ENCOUNTER → 2023-05-25 13:36 | Outpatient (REF) | payer OTHER, SELFPAY ==
--- NOTE | 2023-05-25 13:38 | HM_ITS ---
Conclusion: 1. Patient was monitored for total period of 3 days 2. Baseline was normal sinus rhythm with average heart of 88 beats per minute 3. No significant arrhythmias noted 4. No significant pauses noted 5. No patient reported events MTDD
== END ==
LOC: HO.CARD 13:36
PROVIDERS: Visit Provider Nurse Practitioner Family
DX: R94.31 Abnormal electrocardiogram [ECG] [EKG] (principal)
CPT/HCPCS: 93242

== ENCOUNTER → 2023-05-25 13:38 | Outpatient (BNV) | payer OTHER, SELFPAY | PROVIDERS: Visit Provider Internal Medicine Cardiovascular Disease | DX: R94.31 Abnormal electrocardiogram [ECG] [EKG] (principal) | CPT/HCPCS: 93244 ==

== ENCOUNTER 2023-06-17 23:22 | Emergency (ER) | payer OTHER, SELFPAY ==
--- NOTE | 2023-06-17 | ECG_ITS ---
Test Reason : FEVER Blood Pressure : / mmHG Vent. Rate : 092 BPM Atrial Rate : 092 BPM P-R Int : 116 ms QRS Dur : 092 ms QT Int : 310 ms P-R-T Axes : 025 072 066 degrees QTc Int : 383 ms Normal sinus rhythm Incomplete right bundle branch block Borderline ECG When compared with ECG of 06-MAY-2023 13:32, Heart rate has decreased Referred By: Generic ED Physician Electronically Signed By:WILLA NEVILLE
--- NOTE | ~2023-06-17 | XR_ITS ---
EXAMINATION: XR CHEST CLINICAL INFORMATION: Chest pain. Fever. COMPARISON: Chest x-ray May 06, 2023 TECHNIQUE: 2 views of the chest were obtained. FINDINGS: No significant abnormality is noted involving the heart, lungs, mediastinum, bony thorax or soft tissues. XR/XR chest 2V IMPRESSION: Unremarkable examination.
--- NOTE | ~2023-06-17 | XR_ITS ---
EXAMINATION: XR ABDOMEN KUB CLINICAL INDICATION: Obstruction. COMPARISON: CT abdomen pelvis May 06, 2023 TECHNIQUE: AP view of the abdomen. FINDINGS: The bowel gas pattern is normal with no evidence of ileus or obstruction. Moderate volume of stool in colon. No unusual soft tissue calcifications are noted. The bones are unremarkable. XR/XR KUB IMPRESSION: Unremarkable examination.
[2023-06-17 23:30] VITALS: BP 126/76; PULSE 96; RESP 20; TEMP 37.9; O2SAT 98; BMI 19.9
[2023-06-18 00:04] LABS: Hematocrit 42.4 % (42.0-52.0); Hemoglobin 14.4 g/dl (14.0-18.0); Mean Corpuscular Hemoglobin 27.9 pg (27.0-33.0); Mean Platelet Volume 10.8 fL (9.4-12.4); Platelet Count 188 X10*3/uL (160-400); Red Blood Count 5.17 X10*6/uL (4.60-5.80); Red Cell Distribution Width 13.8 % (11.0-16.0); White Blood Count 9.5 X10*3/uL (4.8-10.8)
[2023-06-18 00:17] LABS: Alanine Aminotransferase 6 U/L (0-40); Albumin Level 4.5 g/dL (3.5-5.0); Alkaline Phosphatase 65 U/L (39-117); Anion Gap 15 (12-20); Aspartate Amino Transferase 22 U/L (5-37); Bilirubin Total 0.7 mg/dL (0.0-1.0); Blood Urea Nitrogen 8 mg/dL (9-16); Carbon Dioxide 22 mmol/L (22-29); Chloride 103 mmol/L (96-108); Estimated Glomerular Filt Rate > 60; Glucose Random 99 mg/dL (60-115); Lipase 23 U/L (8-78); Potassium 3.7 mmol/L (3.3-5.1); Sodium 136 mmol/L (135-145); Total Protein 7.7 g/dL (6.5-8.0)
--- NOTE | 2023-06-18 00:30 | ED.GENADULT ---
HPI - General Adult General Chief complaint: General Medical Stated complaint: Fever Time Seen by Provider: 06/18/23 00:12 Source: patient, family (mother), RN notes reviewed and old records reviewed Mode of arrival: ambulatory Limitations: language barrier (declined interpreting services) History of Present Illness HPI narrative: 23-year-old male presents for evaluation of a fever. 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 He had a similar presentation 1 month ago and was again admitted for 2 nights. He had a negative workup was ultimately discharged with a diagnosis of pericarditis He has seen Infectious Disease. Patient reports that 3 days ago his symptoms return with fevers, body aches, headache, sore throat, abdominal pain without vomiting Denies any cough or shortness of breath Denies any rashes or lesions Denies any IV drug abuse He received ibuprofen at 7:30 a.m., 5 hours prior to my evaluation Related Data Previous Rx's Medication Instructions Recorded colchicine (gout) 0.6 mg tablet 0.6 mg PO BID #60 tabs 05/08/23 (Colcrys) ibuprofen 800 mg tablet 800 mg PO Q8H #41 tabs 05/08/23 omeprazole magnesium 20 mg 20 mg PO DAILY #20 tabs 05/08/23 tablet,delayed release (Prilosec OTC) Allergies Allergy/AdvReac Type Severity Reaction Status Date / Time No Known Allergies Allergy Verified 05/06/23 13:31 Review of Systems Constitutional: Constitutional: Reports body ache(s), Reports chills, Reports fever(s), Reports headache(s) and Reports malaise Eyes: Eyes: Denies blurry vision ENT: Reports headache(s) and Reports sore throat Cardiovascular: Cardiovascular: Reports chest pain and Denies dyspnea Respiratory: Respiratory: Denies cough and Denies dyspnea Gastrointestinal: Gastrointestinal: Reports abdominal pain, Denies diarrhea, Denies loose stools, Denies nausea and Denies vomiting Genitourinary: Genitourinary: Denies oliguria and Denies flank pain Musculoskeletal: Musculoskeletal: Reports back pain, Denies arthralgias, Denies joint swelling and Denies limited range of motion Integumentary/Breasts: Skin/Breast: Denies rash Neurologic: Reports headache(s) Psychiatric: Psychiatric: Denies anxiety PMFSH Past Medical History Medical History History of left above knee amputation (~09/10/20) No pertinent past medical history Surgical History No pertinent past surgical history Social History Social History Household Members: Spouse Housing: Apartment Do you presently have visiting nurse or other home services: No Alcohol intake: never Patient Tobacco Use Status: Never used Tobacco Smoked in Last 30 Days: No Use of substances other than those prescribed or required for medical reasons: No Advance Directives: No Advance Directives Information Provided: Yes service: No Physical Exam ED Vital Signs: Vital Signs - 24 hr 06/17/23 23:30 06/18/23 01:24 06/18/23 01:47 Temperature 100.3 F 99.2 F 99.3 F Pulse Rate 96 94 88 Respiratory Rate 20 16 20 Blood Pressure 126/76 106/64 101/54 L Pulse Oximetry 98 98 98 Oxygen Delivery Method Room Air Room Air Room Air BMI result Body Mass Index 19.9 Const General: healthy appearing, comfortable, no acute distress, alert and awake Nutritional Appearance: well nourished Orientation/consciousness: patient oriented x3 [facility] Head: Yes normocephalic and Yes atraumatic Eyes Eyelids: Yes eyelids normal Conjunctivae: conjunctivae normal Sclerae: sclerae normal Corneas: corneas normal Pupils: Equal, round and reactive pupils present EOM: EOMs intact bilaterally Neck Neck: Yes full ROM, Yes no meningeal signs, No anterior neck swelling, No positive Brudzinski's sign and No positive Kernig's sign Resp Effort & Inspection: normal respiratory effort, able to speak in complete sentences, no audible wheezes and not labored Auscultation: clear to auscultation bilaterally Cardio Rate: regular rate Rhythm: regular rhythm GI Inspection: No distended Palpation (GI): Soft to palpation, not firm, no guarding and not rigid Auscultation: normoactive bowel sounds Skin General skin exam: no rashes or lesions noted and elasticity normal Neuro General: patient oriented x3 and no meningeal signs Cranial nerves: Yes CN's II-XII intact bilaterally, Yes Equal, round and reactive pupils present and Yes Bilaterally intact EOM present Cognition (Neuro): normal cognition Extrem Other: Left BKA using prosthesis Course Reevaluation(s) Reevaluation #1: Patient signed out to overnight staff pending blood cultures, lactic, viral swab, UA and a strep test and disposition. Time: 01:51 Medications Administered Discontinued Medications Generic Name Dose Route Start Last Admin Trade Name Freq PRN Reason Stop Dose Admin Acetaminophen 975 mg 06/18/23 00:22 06/18/23 00:38 Acetaminophen 325 Mg Tablet PO 06/18/23 00:23 975 mg ONCE ONE Administration Medical Decision Making Medical Decision Making [facility] Narrative: 23-year-old male who is generally healthy presenting for evaluation of fever. This is the 3rd month in a row presenting with similar complaints of chest pain, fever, sore throat. I reviewed his previous workups which did not show any obvious findings or source of his fever. The patient arrives with stable vital signs, he has a low-grade temp of 100.3?. Will check common causes fever including COVID testing, flu testing, strep throat testing, chest x-ray, UA. Patient does have mild abdominal tenderness on exam but no guarding, no focal tenderness. He had similar presentation a few months ago and was diagnosed with an ileus. Workup pending at this time including blood cultures. Meningitis is much less likely as the patient has had a fever for the last 3 days, has no neck pain and is not altered. -I received sign-out from DINO Sorto -patient's hematology chemistry, lactic acid, urinalysis, KUB chest x-ray are unremarkable -patient's temperature within normal limits. -patient can be discharged home, patient is to follow-up with infectious disease for intermittent fever of unknown origin Differential Diagnosis Differential Diagnoses: The differential diagnosis associated with the presentation includes Fever of unknown origin Sepsis Viral syndrome Strep throat Pneumonia UTI Bacteremia Admission/Observation Consideration of admission/observation: Escalation of care including admission/observation considered Fever of unknown origin. Lab Data [facility] Lab Attestation statement: I reviewed the patient's lab results. No leukocytosis, no anemia, normal platelet count. Patient's BUN is just below normal at 8. Otherwise normal renal function, no electrolyte abnormalities. 06/17/23 23:54 06/17/23 23:54 Labs: Lab Results 06/17/23 06/18/23 06/18/23 Range/Units 23:54 01:36 01:45 WBC 9.5 (4.8-10.8) X10*3/uL RBC 5.17 (4.60-5.80) X10*6/uL Hgb 14.4 (14.0-18.0) g/dl Hct 42.4 (42.0-52.0) % MCV 82.0 (80.0-98.0) fL MCH 27.9 (27.0-33.0) pg MCHC 34.0 (31.0-36.0) g/dl RDW 13.8 (11.0-16.0) % Plt Count 188 (160-400) X10*3/uL MPV 10.8 (9.4-12.4) fL Absolute Nucleated RBC 0.000 (0.0-0.012) X10*3/uL Nucleated RBC % (auto) 0.0 (0.0-0.2) /100WBC PT 14.1 H (11.1-13.3) SEC INR 1.2 H (0.9-1.1) Sodium 136 (135-145) mmol/L Potassium 3.7 (3.3-5.1) mmol/L Chloride 103 (96-108) mmol/L Carbon Dioxide 22 (22-29) mmol/L Anion Gap 15 (12-20) BUN 8 L (9-16) mg/dL Creatinine 0.85 (0.5-1.4) mg/dL Estim Creat Clear Calc 117.0 Estimated GFR > 60 Random Glucose 99 (60-115) mg/dL Lactic Acid 0.8 (0.5-2.0) mmol/L Calcium 9.0 (8.4-10.2) mg/dL Total Bilirubin 0.7 (0.0-1.0) mg/dL AST 22 (5-37) U/L ALT 6 (0-40) U/L Alkaline Phosphatase 65 (39-117) U/L Troponin I High Sens 3.9 D (<3.5-35.0) ng/L Total Protein 7.7 (6.5-8.0) g/dL Albumin 4.5 (3.5-5.0) g/dL Lipase 23 (8-78) U/L Urine Color Yellow Urine Appearance Clear Urine pH 6.0 (5.0-9.0) Ur Specific [place]cher 1.020 (1.005-1.025) Urine Protein Negative (Neg-Trace) mg/dL Urine Glucose (UA) Negative (Negative) mg/dL Urine Ketones Trace (Negative) mg/dL Urine Blood Negative (Negative) Urine Nitrite Negative (Negative) Ur Leukocyte Esterase Negative (Negative) Urine RBC 0-2 (0-2) /HPF Urine WBC 0-5 (0-5) /HPF Ur Squamous Epith Cells 0-2 (0-2) /HPF Urine Bacteria None Seen (None Seen) Hyaline Casts 0-2 (0-2) /LPF COVID-19 ([facility]) Negative (Negative) COVID-19 Clin Com See Note Influenza Type A (PREMA) Negative (Negative) Influenza Type B (PREMA) Negative (Negative) Influenza A & B Note See Note S. pyogenes GrpA PREMA Negative (Negative) Independent Interpretation I performed an independent interpretation of an: Plain X-Ray (No infiltrates or obstructive bowel pattern on chest and KUB x-ray respectively) Radiology Impression Discussion of test interpretation with radiology: I have reviewed the radiologist's reading. Radiologist Impression: Unremarkable exam of chest and KUB Discharge Plan Discharge Clinical Impression: Fever Patient Disposition: Home, Self-Care Instructions: Fever in Adults (ED) Additional Instructions: Please follow-up with your primary care physician tomorrow. If you have any worsening or new symptoms, please return to the emergency room or call 911 Prescriptions: No Action ibuprofen 800 mg Tablet 800 mg PO Q8H Qty: 41 0RF Rx Instructions: Take it for 2 weeks colchicine (gout) [Colcrys] 0.6 mg Tablet 0.6 mg PO BID Qty: 60 5RF omeprazole magnesium [Prilosec OTC] 20 mg tablet,delayed release (DR/EC) 20 mg PO DAILY Qty: 20 0RF Referrals: Dionne Phipps MD [Physician] - (fever of unknown origin)
[2023-06-18] MEDS: Acetaminophen 325 MG TABLET 975 MG PO (00:38)
[2023-06-18 01:24] VITALS: BP 106/64; PULSE 94; RESP 16; TEMP 37.3; O2SAT 98
[2023-06-18 01:47] VITALS: BP 101/54; PULSE 88; RESP 20; TEMP 37.4; O2SAT 98
[2023-06-18 01:51] LABS: INTERNATIONAL NORM RATIO 1.2 (0.9-1.1); Prothrombin Time 14.1 SEC (11.1-13.3)
[2023-06-18 01:52] LABS: Lactic Acid 0.8 mmol/L (0.5-2.0)
[2023-06-18 01:52] LABS: Appearance Urine Clear; Color Urine Yellow; Glucose Urine UA Negative (Negative); Leukocyte Esterase Urine Negative (Negative); Nitrite Urine Negative (Negative); Urine Blood Negative (Negative); Urine Ketones Trace mg/dL (Negative); Urine Protein Negative (Neg-Trace)
[2023-06-18 01:53] LABS: IDNOW Serial# 08D9AD1C; Strep A Nucleic Acid Negative (Negative)
[2023-06-18 01:56] LABS: Bacteria Urine None Seen (None Seen); Hyaline Casts Urine 0-2 /LPF (0-2); RBC Urine 0-2 /HPF (0-2); Squamous Epithelial Cell Urine 0-2 /HPF (0-2); WBC Urine 0-5 /HPF (0-5)
--- NOTE | 2023-06-18 01:57 | MHC.EDTECH ---
PATIENT BLOOD DRAWN ,INCLUDING LACTIC ACID AND BOTH SETS OF BLOOD CULTURE ,ALSO FLU ,COVID AND STREAP SWAB COLLECTED AND SENT TO LAB ,PT RESTING COMFORTABLE IN BED ,VITALS SIGN TAKEN .
[2023-06-18 02:01] LABS: COVID-19 Test Negative (Negative); IDNOW Serial# 9DB6401D; IDNOW Serial# BCCEAD1C; Influenza A Negative (Negative); Influenza B2 Negative (Negative)
[2023-06-18 02:03] LABS: Troponin-I High Sensitivity 3.9 ng/L (<3.5-35.0)
== END 2023-06-18 05:33 | disposition home or self-care (01) ==
PROVIDERS: Physician Assistant; Emergency Provider Emergency Medicine
DX: R50.9 Fever, unspecified (principal); Z20.822 Contact with and (suspected) exposure to COVID-19; R07.9 Chest pain, unspecified
CPT/HCPCS: 36415; 71046; 74018; 80053; 81001; 83605; 83690; 84484; 85027; 85610; 87040; 87502; 87635; 87651; 93005; 99283; 99284

== ENCOUNTER → 2023-07-05 14:08 | Outpatient (BNVA) | payer OTHER, SELFPAY | PROVIDERS: PCP Internal Medicine; Visit Provider Nurse Practitioner Family ==

== ENCOUNTER 2023-07-08 13:13 | Outpatient (AMB) | payer SELFPAY ==
--- NOTE | 2023-07-08 13:17 | A.OFFVIS_ITS ---
Intake Vital Signs 07/08/23 13:18 Height 5 ft 9 in Weight 135 lb 5.821 oz BMI 20.0 BP 102/60 Pulse 66 Pulse Source Pulse Oximeter Intake Visit Reasons: 2 mth/unable to complete holter Intake Note: Pt having some s/b and chest pain Human Resources Compliance Manager Required: Yes Human Resources Compliance Manager Name: Girlfriend - form signed Information Interpreted: non-clinical & clinical Accompanied by: girlfriend Allergies No Known Allergies Allergy (Verified 07/09/23 07:52) Medication List - Last Reconciled 07/08/23 by Caren Uriarte NP cholecalciferol (vitamin D3) (Vitamin D3) 50 mcg PO DAILY colchicine (gout) (Colcrys) 0.6 mg PO BID ibuprofen 800 mg PO Q8H HPI HPI Comments History of Present Illness Details 23-year-old male presents for a follow-u p. He is present with his girlfriend who is acting as his director of admissions. He has been in and out of the hospital for a fever and chest pain especially with deep inspiration. He was diagnosed with pericarditis that reoccurred due to incomplete treatment. He states 2 weeks out of the last three months he gets a fever. He reports taking the ibuprofen and colchicine as he is prescribed. He has seen infectious disease who thought of possible autoimmune. He did do a holter but it kept falling off - he thinks due to movement at work. About 24 hours of data was collected and was normal. [facility] Medical History History of left above knee amputation (~09/10/20) No pertinent past medical history Surgical History No pertinent past surgical history Social History Household Members: Spouse Housing: Apartment Do you presently have visiting nurse or other home services: No Alcohol intake: never Patient Tobacco Use Status: Never used Tobacco service: No Review of Systems Const Denies chills, Reports fatigue, Denies fever(s), Denies frequent falls, Denies weakness, Denies weight gain and Denies weight loss ENT Denies dizziness Card Reports chest pain (with inspriation), Denies chest pain at rest, Denies chest pain with activity, Denies rapid heart rate, Denies pedal edema, Denies edema, Denies leg edema, Denies lightheadedness, Denies palpitations, Denies dyspnea, Denies dyspnea on exertion and Denies orthopnea Resp Denies cough, Denies dyspnea and Denies dyspnea on exertion GI Denies hematochezia and Denies change in stool character Musc Denies abnormal gait, Denies limited range of motion, Reports muscle cramps, Denies muscle weakness, Denies numbness, Denies radiating pain into limb, Denies stiffness and Denies tingling Neuro Denies abnormal gait, Denies dizziness, Denies frequent falls, Denies numbness, Denies tingling and Denies weakness Endo Reports fatigue and Denies palpitations Physical Exam Vital Signs: Last Vital Signs Pulse 66 07/08/23 13:18 BP 102/60 07/08/23 13:18 BMI result Body Mass Index 20.0 Const General: healthy appearing and no acute distress Orientation/consciousness: patient oriented x3 HEENT Head: Yes normal to inspection Eyes General: appearance normal, both eyes and all related structures Neck Neck: Yes normal visual inspection Chest Chest palpation & inspection: normal inspection of the chest Resp Effort & Inspection: normal respiratory effort Auscultation: clear to auscultation bilaterally Cardio Jugular venous distension: no JVD Palpation: normal PMI Rate: regular rate Rhythm: regular rhythm Heart sounds: S1 normal heart sound present, S2 normal heart sound present, no click, no gallops, no murmurs and no rubs GI Inspection: Yes normal to inspection Palpation (GI): Soft to palpation Skin General skin exam: no rashes or lesions noted Neuro General: patient oriented x3 Extrem General: Yes normal to inspection Psych Appearance: grossly normal Office Procedures EKG Details: EKG today. NSR. Rate 63bpm. QTc 383ms. OH 122ms. [id number], Complete Assessment & Plan Assessment & Plan (1) Pericarditis: Code(s): I31.9 - Disease of pericardium, unspecified Plan PT continues in chest pain. Will send to rheumatology. Will recheck CRP and ESR today - will call with results. Continue medications. Will talk with Dr Hendricks upon his return. Orders: Orders CRP High Sensitivity 07/08/23 I31.9 - Disease of pericardium, unspecified Erythrocyte Sedimentation Rate 10/19/23 I31.9 - Disease of pericardium, unspecified Referrals Rheumatology Referral I31.9 - Disease of pericardium, unspecified Coding Level of Care Code Est Pt Level 3 (26274) Diagnoses Pericarditis I31.9 CPT Codes EKG - CPT: 91035-[id number], Complete ([id number])
[2023-07-08 13:18] VITALS: BP 102/60; PULSE 66
== END 2023-07-08 14:17 | disposition home or self-care (01) ==
PROVIDERS: PCP Internal Medicine; Visit Provider Nurse Practitioner
DX: I31.9 Disease of pericardium, unspecified (principal)
CPT/HCPCS: 93010; 99213

== ENCOUNTER → 2023-07-08 13:13 | Outpatient (BNVA) | payer MEDICAID, SELFPAY | PROVIDERS: PCP Internal Medicine; Visit Provider Nurse Practitioner | DX: I31.9 Disease of pericardium, unspecified (principal) | CPT/HCPCS: 93005; 99212 ==

== ENCOUNTER 2023-11-20 16:16 | Emergency (ER) | payer SELFPAY ==
--- NOTE | 2023-11-20 16:19 | ED_ITS ---
HPI - General Adult General Chief complaint: Epistaxis Stated complaint: nosebleeds Time Seen by Provider: 11/20/23 18:23 Source: patient, family (Family acting as company truck driver), RN notes reviewed and old records reviewed Mode of arrival: ambulatory Limitations: language barrier (Declining interpreting services) History of Present Illness HPI narrative: 23-year-old male presents for evaluation of nosebleeds on and the last month He denies any trauma to the area He reports having 2 nosebleeds today but does currently a nosebleed He reports that occasionally ?pick my nose. His symptoms sometimes start when is sleeping No other bleeding including bloody bowel movements Related Data Home Medications Medication Instructions Recorded Confirmed cholecalciferol (vitamin D3) 50 50 mcg PO DAILY 07/08/23 mcg (2,000 unit) tablet (Vitamin D3) Previous Rx's Medication Instructions Recorded colchicine 0.6 mg tablet (Colcrys) 0.6 mg PO BID #60 tabs 05/08/23 ibuprofen 800 mg tablet 800 mg PO Q8H #41 tabs 05/08/23 Allergies Allergy/AdvReac Type Severity Reaction Status Date / Time No Known Allergies Allergy Verified 11/20/23 16:23 Review of Systems 2 Constitutional: Constitutional: Denies chills and Denies fever(s) ENT: Reports epistaxis PMFSH Past Medical History Medical History History of left above knee amputation (~09/10/20) No pertinent past medical history Surgical History No pertinent past surgical history Social History Social History Household Members: Spouse Housing: Apartment Do you presently have visiting nurse or other home services: No Alcohol intake: never Patient Tobacco Use Status: Never used Tobacco Advance Directives: No Advance Directives Information Provided: No service: No Physical Exam ED Vital Signs: Vital Signs - 24 hr 11/20/23 16:20 Temperature 97.4 F Pulse Rate 83 Respiratory Rate 18 Blood Pressure 126/73 Pulse Oximetry 98 Oxygen Delivery Method Room Air BMI result Body Mass Index 20.6 HENMT Other: no active epistaxis. There is some dried blood with in left nare. No lesions noted Course Course Course Narrative: RME- 23 year old male presents for evaluation of multiple nose bleeds over the last month including 2 today. Not actively bleeding. Plan for basic labs Medical Decision Making Medical Decision Making [facility] Narrative: Given the patient has had nosebleeds on and off for 1 month, will check basic labs to evaluate for platelet count, blood counts. There is no active epistaxis requiring treatment Differential Diagnosis Differential Diagnoses: The differential diagnosis associated with the presentation includes Epistaxis Upper respiratory infection Coagulopathy Thrombocytopenia Lab Data [facility] Lab Attestation statement: I reviewed the patient's lab results. No leukocytosis or anemia, normal platelet count of 256 K. no significant electrolyte abnormalities 11/20/23 17:28 11/20/23 17:28 Labs: Lab Results 11/20/23 Range/Units 17:28 WBC 7.9 (4.8-10.8) X10*3/uL RBC 5.29 (4.60-5.80) X10*6/uL Hgb 14.9 (14.0-18.0) g/dl Hct 43.3 (42.0-52.0) % MCV 81.9 (80.0-98.0) fL MCH 28.2 (27.0-33.0) pg MCHC 34.4 (31.0-36.0) g/dl RDW 13.5 (11.0-16.0) % Plt Count 256 D (160-400) X10*3/uL MPV 11.0 (9.4-12.4) fL Immature Gran % (Auto) 0.4 (0.0-0.4) % Neut % (Auto) 56.7 (45-73) % Lymph % (Auto) 29.2 (20-40) % [place] % (Auto) 8.8 (2-11) % Eos % (Auto) 4.3 H (0-4) % Baso % (Auto) 0.6 (0-2) % Lymph # (Auto) 2.3 (1.2-4.9) X10*3/uL [place] # (Auto) 0.7 (0.1-1.2) X10*3/uL Eos # (Auto) 0.3 (0.0-0.4) X10*3/uL Baso # (Auto) 0.1 (0.0-0.2) X10*3/uL Abs Immat Gran (auto) 0.03 (0.00-0.03) X10*3/uL Absolute Neuts (auto) 4.5 (2.0-8.3) x10*3/uL Absolute Nucleated RBC 0.000 (0.0-0.012) X10*3/uL Nucleated RBC % (auto) 0.0 (0.0-0.2) /100WBC PT 12.8 (11.1-13.3) SEC INR 1.1 (0.9-1.1) Sodium 140 (135-145) mmol/L Potassium 3.7 (3.3-5.1) mmol/L Chloride 105 (96-108) mmol/L Carbon Dioxide 27 (22-29) mmol/L Anion Gap 12 (12-20) BUN 11 (9-16) mg/dL Creatinine 0.91 (0.5-1.4) mg/dL Estim Creat Clear Calc 113.2 Estimated GFR > 60 Random Glucose 81 (60-115) mg/dL Calcium 9.1 (8.4-10.2) mg/dL Total Bilirubin 0.4 (0.0-1.0) mg/dL AST 21 (5-37) U/L ALT 6 (0-40) U/L Alkaline Phosphatase 68 (39-117) U/L Total Protein 7.8 (6.5-8.0) g/dL Albumin 4.4 (3.5-5.0) g/dL Lipase 38 (8-78) U/L Discharge Plan Discharge Clinical Impression: Epistaxis Patient Disposition: Home, Self-Care Instructions: Nosebleed (ED) Additional Instructions: Your blood work was reassuring. You can help prevent future nosebleeds using humidifier at night You may also use saline nasal spray up to twice daily to help prevent nosebleeds Follow-up with your primary doctor Prescriptions: No Action ibuprofen 800 mg Tablet 800 mg PO Q8H Qty: 41 0RF Rx Instructions: Take it for 2 weeks colchicine [Colcrys] 0.6 mg Tablet 0.6 mg PO BID Qty: 60 5RF cholecalciferol (vitamin D3) [Vitamin D3] 50 mcg (2,000 unit) tablet 50 mcg PO DAILY
[2023-11-20 16:20] VITALS: BP 126/73; PULSE 83; RESP 18; TEMP 36.3; O2SAT 98; BMI 20.6
[2023-11-20 17:36] LABS: MANUAL DIFF FLAG NO
[2023-11-20 17:45] LABS: Basophils Absolute Auto 0.1 X10*3/uL (0.0-0.2); Basophils Percent Auto 0.6 % (0-2); Eosinophils Absolute Auto 0.3 X10*3/uL (0.0-0.4); Eosinophils Percent Auto 4.3 % (0-4); Hematocrit 43.3 % (42.0-52.0); Hemoglobin 14.9 g/dl (14.0-18.0); INTERNATIONAL NORM RATIO 1.1 (0.9-1.1); Imm Gran Abs Auto 0.03 X10*3/uL (0.00-0.03); Imm Gran Pct Auto 0.4 % (0.0-0.4); Lymphocytes Absolute Auto 2.3 X10*3/uL (1.2-4.9); Lymphocytes Percent Auto 29.2 % (20-40); Mean Corpuscular HGB Conc 34.4 g/dl (31.0-36.0); Mean Corpuscular Hemoglobin 28.2 pg (27.0-33.0); Mean Corpuscular Volume 81.9 fL (80.0-98.0); Monocytes Absolute Auto 0.7 X10*3/uL (0.1-1.2); Monocytes Percent Auto 8.8 % (2-11); Neutrophils Absolute Auto 4.5 x10*3/uL (2.0-8.3); Neutrophils Percent Auto 56.7 % (45-73); Platelet Count 256 X10*3/uL (160-400); Prothrombin Time 12.8 SEC (11.1-13.3); Red Blood Count 5.29 X10*6/uL (4.60-5.80); Red Cell Distribution Width 13.5 % (11.0-16.0); White Blood Count 7.9 X10*3/uL (4.8-10.8)
[2023-11-20 17:56] LABS: Alanine Aminotransferase 6 U/L (0-40); Albumin Level 4.4 g/dL (3.5-5.0); Alkaline Phosphatase 68 U/L (39-117); Anion Gap 12 (12-20); Aspartate Amino Transferase 21 U/L (5-37); Bilirubin Total 0.4 mg/dL (0.0-1.0); Blood Urea Nitrogen 11 mg/dL (9-16); Calcium 9.1 mg/dL (8.4-10.2); Carbon Dioxide 27 mmol/L (22-29); Chloride 105 mmol/L (96-108); Creatinine Clr Calc Pharmacy 113.2; Estimated Glomerular Filt Rate > 60; Glucose Random 81 mg/dL (60-115); Lipase 38 U/L (8-78); Potassium 3.7 mmol/L (3.3-5.1); Sodium 140 mmol/L (135-145); Total Protein 7.8 g/dL (6.5-8.0)
== END 2023-11-20 18:45 | disposition home or self-care (01) ==
PROVIDERS: Physician Assistant; Emergency Provider Emergency Medicine
DX: R04.0 Epistaxis (principal)
CPT/HCPCS: 36415; 80053; 83690; 85025; 85610; 99282; 99283

== ENCOUNTER 2024-03-23 18:30 | Emergency (ER) | payer MEDICAID, OTHER, SELFPAY ==
--- NOTE | ~2024-03-23 | XR_ITS ---
EXAMINATION: XR CHEST CLINICAL INFORMATION: Chest pain for 3 days COMPARISON: None available. TECHNIQUE: Frontal view of the chest was obtained. FINDINGS: Left hemidiaphragm is minimally elevated with some gaseous distention of bowel beneath. No significant abnormality is noted involving the heart, lungs, mediastinum, bony thorax or soft tissues. XR/XR chest 1V IMPRESSION: Unremarkable examination.
--- NOTE | 2024-03-23 18:32 | ECG_ITS ---
Test Reason : CP Blood Pressure : / mmHG Vent. Rate : 109 BPM Atrial Rate : 109 BPM P-R Int : 120 ms QRS Dur : 084 ms QT Int : 290 ms P-R-T Axes : 078 076 076 degrees QTc Int : 390 ms Sinus tachycardia Otherwise normal ECG When compared with ECG of 17-JUN-2023 23:39, Incomplete right bundle branch block is no longer Present Referred By: Wesly Nugent Electronically Signed By:RISHI LICONA
[2024-03-23 18:49] VITALS: BP 117/65; PULSE 108; RESP 16; TEMP 37.2; O2SAT 98; BMI 21.0
[2024-03-23 18:51] LABS: MANUAL DIFF FLAG NO
[2024-03-23 19:07] LABS: Basophils Percent Auto 0.5 % (0-2); Eosinophils Absolute Auto 0.1 X10*3/uL (0.0-0.4); Eosinophils Percent Auto 0.9 % (0-4); Hematocrit 44.2 % (42.0-52.0); Hemoglobin 15.3 g/dl (14.0-18.0); Imm Gran Abs Auto 0.02 X10*3/uL (0.00-0.03); Imm Gran Pct Auto 0.3 % (0.0-0.4); Lymphocytes Absolute Auto 0.6 X10*3/uL (1.2-4.9); Lymphocytes Percent Auto 9.3 % (20-40); Mean Corpuscular HGB Conc 34.6 g/dl (31.0-36.0); Mean Corpuscular Hemoglobin 28.5 pg (27.0-33.0); Mean Corpuscular Volume 82.5 fL (80.0-98.0); Mean Platelet Volume 11.3 fL (9.4-12.4); Monocytes Absolute Auto 0.6 X10*3/uL (0.1-1.2); Neutrophils Absolute Auto 5.2 x10*3/uL (2.0-8.3); Platelet Count 192 X10*3/uL (160-400); Red Blood Count 5.36 X10*6/uL (4.60-5.80); Red Cell Distribution Width 13.4 % (11.0-16.0); White Blood Count 6.4 X10*3/uL (4.8-10.8)
[2024-03-23 19:11] LABS: Alanine Aminotransferase 7 U/L (0-40); Albumin Level 4.7 g/dL (3.5-5.0); Alkaline Phosphatase 68 U/L (39-117); Anion Gap 14 (12-20); Aspartate Amino Transferase 22 U/L (5-37); Bilirubin Total 0.6 mg/dL (0.0-1.0); Blood Urea Nitrogen 11 mg/dL (9-16); C Reactive Protein 1.66 mg/dL (< or = 0.50); Calcium 9.4 mg/dL (8.4-10.2); Carbon Dioxide 24 mmol/L (22-29); Chloride 102 mmol/L (96-108); Creatinine Clr Calc Pharmacy 123.1; Estimated Glomerular Filt Rate > 60; Glucose Random 91 mg/dL (60-115); Sodium 136 mmol/L (135-145); Total Protein 8.1 g/dL (6.5-8.0)
[2024-03-23 19:13] LABS: INTERNATIONAL NORM RATIO 1.1 (0.9-1.1); Prothrombin Time 12.9 SEC (11.1-13.3)
[2024-03-23 19:16] LABS: Partial Thromboplastin Time 34.5 SEC (26.0-36.8)
[2024-03-23 19:21] LABS: Troponin-I High Sensitivity < 2.7 ng/L (<3.5-35.0)
[2024-03-23 19:49] LABS: Appearance Urine Clear; Color Urine Yellow; Glucose Urine UA Negative (Negative); Leukocyte Esterase Urine Negative (Negative); Nitrite Urine Negative (Negative); Specific Gravity - Urine >= 1.030 (1.005-1.025); Urine Blood Negative (Negative); Urine Ketones 15 mg/dL (Negative); Urine Protein Trace mg/dL (Neg-Trace)
--- NOTE | 2024-03-23 19:50 | ED_ITS ---
HPI - Fever General Chief Complaint: Fever Stated Complaint: fever,lower back and chest pain Time Seen by Provider: 03/23/24 19:50 Source: patient Mode of arrival: ambulatory Limitations: no limitations History of Present Illness ED Provider: Komal Bright PA-C HPI Narrative: 23-year-old male with history of congenital BKA, history of pericarditis 1 year ago who presents to the ER for evaluation of subjective fevers, chills, and body aches that started yesterday. Patient reports his worse aches and pains are in his entire chest and his lower back. The pains are constant and worse with movement. He feels weak and fatigued. He has not taken his temperature at home but has had chills and subjective fevers. Not coughing or having any abdominal pain. No known sick contacts. Mom brought him to the hospital for evaluation as he had these exact symptoms when he had pericarditis/year. MD elicited complaint: fever Onset (ago): day(s) (1) Relieving factors: acetaminophen and ibuprofen Associated symptoms: chills, nasal congestion and back/flank pain Treatments prior to arrival fever: acetaminophen and ibuprofen Related Data Home Medications ?Medication ?Instructions ?Recorded ?Confirmed cholecalciferol (vitamin D3) 50 50 mcg PO DAILY 07/08/23 mcg (2,000 unit) tablet (Vitamin D3) Previous Rx's ?Medication ?Instructions ?Recorded colchicine 0.6 mg tablet (Colcrys) 0.6 mg PO BID #60 tabs 05/08/23 ibuprofen 800 mg tablet 800 mg PO Q8H #41 tabs 05/08/23 Allergies Allergy/AdvReac Type Severity Reaction Status Date / Time No Known Allergies Allergy Verified 03/23/24 18:54 Review of Systems 2 Review of Systems: Yes all other systems are reviewed and are negative [facility] Past Medical History Medical History (Updated 03/23/24 @ 20:51 by DINO Lipscomb) Pericarditis Abnormal EKG Surgical History (Updated 12/01/23 @ 14:52 by WILDER Alva) History of left above knee amputation (~09/10/20) Family History Family History (Updated 12/01/23 @ 14:52 by WILDER Alva) Mother No problems noted. Father No problems noted. Social History Social History Household Members: Spouse Housing: Apartment Do you presently have visiting nurse or other home services: No Alcohol intake: never Patient Tobacco Use Status: Never used Tobacco Smoked in Last 30 Days: No Use of substances other than those prescribed or required for medical reasons: No Advance Directives: No Advance Directives Information Provided: No service: No Physical Exam 2 Vital Signs: Vital Signs: Last Vital Signs Temp 100.0 F 03/23/24 21:15 Pulse 115 H 03/23/24 21:15 Resp 18 03/23/24 21:15 BP 104/49 L 03/23/24 21:15 Pulse Ox 98 03/23/24 21:15 O2 Del Method Room Air 03/23/24 21:15 BMI result Body Mass Index 21.0 Appearance: Alert. Oriented X3. No acute distress. Head: normocephalic, atraumatic. Eyes: Pupils equal, round and reactive to light. Mild scleral injection bilaterally ENT: Pharynx normal. No tonsillar swelling or exudate. Neck: Normal inspection. Neck supple. CVS: Normal heart rate and rhythm. Pulses normal. Mild tenderness bilaterally to the anterior chest wall Respiratory: No respiratory distress. Breath sounds normal. Abdomen: Soft and nontender. +BS x4 Skin: Skin warm and dry. Normal skin color. Normal skin turgor. No rashes. Extremities: Prosthesis of lower extremities in place Neuro/psych: Oriented X 3. No motor deficit. No sensory deficit. CN II-XII intact. Normal speech and cognition. Medications Administered Discontinued Medications Generic Name Dose Route Start Last Admin Trade Name Santana PRN Reason Stop Dose Admin Ibuprofen 600 mg 03/23/24 20:07 03/23/24 20:21 Ibuprofen 600 Mg Tablet PO 03/23/24 20:08 600 mg ONCE ONE Administration Medical Decision Making Medical Decision Making MDM Narrative: 23 yo male with history of pericarditits presents to the ER for evaluation of subjective fevers, chills, chest pain and lower back pain that started yesterday. Patient reports similar symptoms to his prior episode of pericarditis. He denies any shortness of breath or difficulty breathing. On arrival to the ER patient is slightly tachycardic to 108. EKG is nonischemic. Lab workup done today showing negative troponin, no leukocytosis. His chest x- ray is clear. His viral studies show that he is positive for COVID-19, which is likely causing his symptoms. Low clinical suspicion for PE. He is not hypoxic. Patient given Motrin for pain. We discussed the results of his serology, management of his viral illness and return precautions. He is stable for discharge home with supportive care and follow-up as needed. Differential Diagnosis Differential Diagnoses: The differential diagnosis associated with the presentation includes Pericarditis, myocarditis, COVID, flu, RSV, pneumonia, UTI, other viral syndrome Admission/Observation Consideration of admission/observation: Escalation of care including admission/observation considered Lab Data MDM Lab Attestation statement: I reviewed the patient's lab results. No leukocytosis, normal renal function, negative troponin 03/23/24 18:46 03/23/24 18:46 Labs: Lab Results 03/23/24 03/23/24 Range/Units 18:46 19:37 WBC 6.4 (4.8-10.8) X10*3/uL RBC 5.36 (4.60-5.80) X10*6/uL Hgb 15.3 (14.0-18.0) g/dl Hct 44.2 (42.0-52.0) % MCV 82.5 (80.0-98.0) fL MCH 28.5 (27.0-33.0) pg MCHC 34.6 (31.0-36.0) g/dl RDW 13.4 (11.0-16.0) % Plt Count 192 (160-400) X10*3/uL MPV 11.3 (9.4-12.4) fL Immature Gran % (Auto) 0.3 (0.0-0.4) % Neut % (Auto) 80.0 H (45-73) % Lymph % (Auto) 9.3 L (20-40) % [place] % (Auto) 9.0 (2-11) % Eos % (Auto) 0.9 (0-4) % Baso % (Auto) 0.5 (0-2) % Lymph # (Auto) 0.6 L (1.2-4.9) X10*3/uL [place] # (Auto) 0.6 (0.1-1.2) X10*3/uL Eos # (Auto) 0.1 (0.0-0.4) X10*3/uL Baso # (Auto) 0.0 (0.0-0.2) X10*3/uL Abs Immat Gran (auto) 0.02 (0.00-0.03) X10*3/uL Absolute Neuts (auto) 5.2 (2.0-8.3) x10*3/uL Absolute Nucleated RBC 0.000 (0.0-0.012) X10*3/uL Nucleated RBC % (auto) 0.0 (0.0-0.2) /100WBC ESR 5 (0-15) MM/HR PT 12.9 (11.1-13.3) SEC INR 1.1 (0.9-1.1) APTT 34.5 (26.0-36.8) SEC Sodium 136 (135-145) mmol/L Potassium 4.0 (3.3-5.1) mmol/L Chloride 102 (96-108) mmol/L Carbon Dioxide 24 (22-29) mmol/L Anion Gap 14 (12-20) BUN 11 (9-16) mg/dL Creatinine 0.85 (0.5-1.4) mg/dL Estim Creat Clear Calc 123.1 Estimated GFR > 60 Random Glucose 91 (60-115) mg/dL Calcium 9.4 (8.4-10.2) mg/dL Total Bilirubin 0.6 (0.0-1.0) mg/dL AST 22 (5-37) U/L ALT 7 (0-40) U/L Alkaline Phosphatase 68 (39-117) U/L Troponin I High Sens < 2.7 (<3.5-35.0) ng/L C-Reactive Protein 1.66 H (< or = 0.50) mg/dL Total Protein 8.1 H (6.5-8.0) g/dL Albumin 4.7 (3.5-5.0) g/dL Urine Color Yellow Urine Appearance Clear Urine pH 6.0 (5.0-9.0) Ur Specific [place] >= 1.030 H (1.005-1.025) Urine Protein Trace (Neg-Trace) mg/dL Urine Glucose (UA) Negative (Negative) mg/dL Urine Ketones 15 (Negative) mg/dL Urine Blood Negative (Negative) Urine Nitrite Negative (Negative) Ur Leukocyte Esterase Negative (Negative) Influenza Type A (PCR) NEGATIVE (Negative) Influenza Type B (PCR) NEGATIVE (Negative) RSV RNA Qual (PCR) NEGATIVE (Negative) SARS-CoV-2 RNA (RT-PCR) POSITIVE A (Negative) S. pyogenes GrpA PREMA Negative (Negative) Independent Interpretation I performed an independent interpretation of an: EKG and Plain X-Ray Interpretation: EKG with sinus tachycardia, ventricular rate 109 beats per minute, normal NV interval, normal QTC, no ST segment elevations or depressions Chest x-ray clear without pneumothorax, infiltrate or effusions Radiology Impression Discussion of test interpretation with radiology: I have reviewed the radiologist's reading. Radiologist Impression: EXAMINATION: XR CHEST CLINICAL INFORMATION: Chest pain for 3 days COMPARISON: None available. TECHNIQUE: Frontal view of the chest was obtained. FINDINGS: Left hemidiaphragm is minimally elevated with some gaseous distention of bowel beneath. No significant abnormality is noted involving the heart, lungs, mediastinum, bony thorax or soft tissues. XR/XR chest 1V IMPRESSION: Unremarkable examination. Independent Historian Clinical information obtained from an independent historian. History obtained from or confirmed by: Parent External Record Review External record reviewed: Inpatient record, Outpatient record, Prior outpatient labs and Prior outpatient radiology Tests considered The following testing was considered but not selected: CTA considered but PE less likely Prescription Management I considered prescription management with: Pain Medication and Antiviral Critical Care Time Critical Care Time Critical Care Time: No Discharge Plan Discharge Clinical Impression: COVID-19 Patient Disposition: Home, Self-Care Instructions: COVID-19 (Coronavirus Disease 2019) (ED) Additional Instructions: You were found to be COVID-19 POSITIVE today. Your chest x-ray and oxygen levels were normal. Rest. Drink plenty of fluids. Do not go out in public while you are not feeling well. Take over the counter cold/flu medications as needed for your symptoms. Take Tylenol and/or Motrin as needed for fevers and body aches. Follow up with your doctor as needed. If you develop new or worsening symptoms call 911 or come back to the ER for further evaluation. Prescriptions: No Action ibuprofen 800 mg Tablet 800 mg PO Q8H Qty: 41 0RF Rx Instructions: Take it for 2 weeks colchicine [Colcrys] 0.6 mg Tablet 0.6 mg PO BID Qty: 60 5RF cholecalciferol (vitamin D3) [Vitamin D3] 50 mcg (2,000 unit) tablet 50 mcg PO DAILY Interventions: ED Discharge Assessment Last Done: 03/23/24 21:15 Discharge Date/Time: 03/23/24 21:15 Print Language: Bolivian
[2024-03-23 19:57] LABS: IDNOW Serial# 08D9AD1C; Strep A Nucleic Acid Negative (Negative)
[2024-03-23 20:21] LABS: Erythrocyte Sedimentation Rate 5 MM/HR (0-15)
[2024-03-23] MEDS: Ibuprofen 600 MG TABLET PO (20:21)
[2024-03-23 20:28] LABS: Influenza A PCR NEGATIVE (Negative); Influenza B PCR NEGATIVE (Negative); Resp Syncy Virus RNA Qual PCR NEGATIVE (Negative); SARS COV2 PCR INHOUSE POSITIVE (Negative)
[2024-03-23 21:08] VITALS: BP 104/49; PULSE 115; RESP 18; TEMP 37.8; O2SAT 98
[2024-03-23 21:15] VITALS: BP 104/49; PULSE 115; RESP 18; TEMP 37.8; O2SAT 98
== END 2024-03-23 21:15 | disposition home or self-care (01) ==
PROVIDERS: Physician Assistant; Emergency Provider Emergency Medicine
DX: U07.1 COVID-19 (principal); R07.89 Other chest pain; R50.9 Fever, unspecified; Z79.899 Other long term (current) drug therapy
CPT/HCPCS: 0241U; 36415; 71045; 80053; 81003; 84484; 85025; 85610; 85652; 85730; 86140; 87651; 93005; 99283; 99285

== ENCOUNTER → 2024-03-23 18:32 | Outpatient (BNV) | payer SELFPAY | PROVIDERS: Emergency Provider Emergency Medicine; Visit Provider Internal Medicine | DX: R00.0 Tachycardia, unspecified (principal) | CPT/HCPCS: 93010 ==

== ENCOUNTER 2024-04-10 15:48 | Emergency (ER) | payer OTHER, MEDICAID, SELFPAY ==
--- NOTE | ~2024-04-10 | XR_ITS ---
EXAMINATION: XR KNEE, LEFT CLINICAL INFORMATION: Knee pain COMPARISON: None available. TECHNIQUE: Four views of the left knee. FINDINGS: A side plate and screws transfix the proximal shaft of the left tibia. The patient has undergone left [id number]-[id number]-xcbx amputation. No acute fracture or subluxation is detected. There is chronic deformity of the proximal medial tibial metaphysis, presumably posttraumatic. There is no detected knee joint effusion. XR/XR knee LT 3V IMPRESSION: 1. Left uiztq-wyfc-dmth amputation and transfixion of proximal tibial fracture. No acute findings.
[2024-04-10 17:22] VITALS: BP 128/74; PULSE 73; RESP 18; TEMP 37; O2SAT 100; BMI 20.4
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
[2024-04-10 18:45] VITALS: BP 128/74; PULSE 73; RESP 18; TEMP 37; O2SAT 100
== END 2024-04-10 18:48 | disposition home or self-care (01) ==
PROVIDERS: Emergency Provider Emergency Medicine
DX: S80.02XA Contusion of left knee, initial encounter (principal); M25.562 Pain in left knee; V44.6XXA Car passenger injured in collision with heavy transport vehicle or bus in traffic accident, initial encounter; Y93.9 Activity, unspecified; Y92.410 Unspecified street and highway as the place of occurrence of the external cause; Y99.8 Other external cause status; Z79.899 Other long term (current) drug therapy
CPT/HCPCS: 73562; 99282; 99283

== ENCOUNTER 2024-05-03 14:02 | Outpatient (REF) | payer MEDICAID, OTHER, SELFPAY ==
[2024-05-03 17:10] LABS: CT PCR NOT DETECTED (Not Detect.); NG PCR NOT DETECTED (Not Detect.)
[2024-05-04 04:46] LABS: Syphilis Screen Nonreactive (Nonreactive)
[2024-05-04 05:14] LABS: ~HepC Num1 0.14 S/CO (0.00-0.79); ~Hepatitis C Antibody Nonreactive (Nonreactive)
[2024-05-04 12:48] LABS: Rubella IgG Antibody 1.25 Index; Rubella IgM Antibody <20.00 AU/mL
[2024-05-05 21:58] LABS: TS Negative Control Passed; TS Panel A 0; TS Panel B 0; TS Positive Control Passed; TSpotTB Negative (Negative)
[2024-05-18 14:39] LABS: Mumps Virus IgM Antibody <1:20 titer; Rubeola IgM (Measles) <1:20 titer
== END 2024-05-03 14:03 | disposition home or self-care (01) ==
LOC: HO.LAB 14:02
PROVIDERS: Visit Provider Internal Medicine
DX: Z02.89 Encounter for other administrative examinations (principal)
CPT/HCPCS: 86481; 86735; 86762; 86765; 86780; 86803; 87491; 87591

== ENCOUNTER 2025-06-20 19:59 | Emergency (ER) | payer SELFPAY ==
--- NOTE | ~2025-06-20 | XR_ITS ---
CLINICAL HISTORY: cough, shortness of breath, chest pain 2 view chest x-ray Comparison: 03/23/2024 Findings: Lungs are clear without acute infiltrates. No pneumothorax. Heart size normal. No acute bony abnormalities. Impression: No acute processes This document has been electronically signed by: Codey Kulkarni MD on 06/20/2025 21:22:53
[2025-06-20 20:17] VITALS: BP 125/75; PULSE 77; RESP 18; TEMP 36.6; O2SAT 100; BMI 21.3
[2025-06-20 20:48] LABS: MANUAL DIFF FLAG NO
[2025-06-20 20:49] LABS: Hematocrit 41.3 % (42.0-52.0); Hemoglobin 14.5 g/dl (14.0-18.0); Imm Gran Abs Auto 0.03 X10*3/uL (0.00-0.03); Imm Gran Pct Auto 0.3 % (0.0-0.4); Lymphocytes Absolute Auto 2.4 X10*3/uL (1.2-4.9); Mean Corpuscular HGB Conc 35.1 g/dl (31.0-36.0); Mean Corpuscular Hemoglobin 29.1 pg (27.0-33.0); Mean Corpuscular Volume 82.9 fL (80.0-98.0); NRBC Abs Auto 0.000 X10*3/uL (0.0-0.012); NRBC Pct Auto 0.0 /100WBC (0.0-0.2); Platelet Count 205 X10*3/uL (160-400); Red Blood Count 4.98 X10*6/uL (4.60-5.80); White Blood Count 9.6 X10*3/uL (4.8-10.8)
[2025-06-20 21:03] LABS: Alanine Aminotransferase 13 U/L (0-40); Albumin Level 4.4 g/dL (3.5-5.0); Alkaline Phosphatase 71 U/L (39-117); Anion Gap 10 (12-20); Aspartate Amino Transferase 21 U/L (5-37); Blood Urea Nitrogen 7 mg/dL (9-16); Calcium 8.7 mg/dL (8.4-10.2); Carbon Dioxide 26 mmol/L (22-29); Chloride 110 mmol/L (96-108); Creatinine Clr Calc Pharmacy 132.4; Estimated Glomerular Filt Rate > 60; Potassium 4.2 mmol/L (3.3-5.1); Sodium 142 mmol/L (135-145); Total Protein 7.4 g/dL (6.5-8.0)
[2025-06-20 21:12] LABS: Troponin-I High Sensitivity < 2.7 ng/L (<3.5-35.0)
[2025-06-20 21:15] LABS: NT Pro B Type Natriuretic Pept 23.0 pg/mL (<300)
[2025-06-20 21:26] LABS: Resp Syncy Virus RNA Qual PCR NEGATIVE (Negative); SARS COV2 PCR INHOUSE NEGATIVE (Negative)
--- OUTSIDE RECORDS SUMMARY | 2025-06-20 22:33 | XMS_ITS | Clinical Summary ---
Author Organization [employer] Address [address] [place] [address] Care Team Providers Care Abalone Processor Name Role Phone Unavailable Primary Care Provider Unavailabl e Immunizations Immunization Administration Dates Next Due Hep B, adult 07/19/2024 Influenza injectable quadrivalent preservative f ree 09/24/2021 Influenza, seasonal, injectable, preservative fr ee 05/29/2024 Moderna Covid-19 Vaccine 12+ 10/22/2021,09/24/19 Pfizer Covid-19 Vaccine 12+ 06/21/2024 Tdap 05/12/2024 Social History Tobacco Use Types Packs/Day Years Used Date Smoking Tobacco: Never Assessed Sex and Gender Information Value Date Recorded Sex Assigned at Male 05/12/2024 1:07 PM EDT Legal Sex Male 3:22 PM EDT Gender Identity Male 05/12/2024 1:07 PM EDT Sexual Orientation Don't know 05/12/2024 1: 07 PM EDT Plan of Treatment Health Maintenance Due Date Last Done Comments Depression Screening 2000 HIV Screening 2000 SDOH Screening 2000 Disability Screening 2000 Alcohol/Substance Use Screening 2012 Tobacco Screening 2012 Family Planning (PISQ) 2015 HPV Vaccines (1 - Male 3-dos e series) 2015 Hepatitis C Screening 2018 Hepatitis B Vaccines (2 of 3 - 19+ 3-dose series) 08/16/2024 07/19/2024 Influenza Vaccine (#1) 2025 , 09/24/2021 DTaP/Tdap/Td Vaccines (2 - T d or Tdap) 05/12/2034 05/12/2024 Zoster Vaccines (1 of 2) 2050 RSV Patients and Patients Aged 60 years or older (1 - 1-dose 75+ series) 2075 COVID-19 Vaccine Completed 06/21/2024, 10/22/2021, 09/24/2021 HIB Vaccines Aged Out No longer eligi ble based on patient's age to complete this topic Hepatitis A Vaccines Aged Out No long er eligible based on patient's age to complete this topic IPV Vaccines Aged Out No longer eligi ble based on patient's age to complete this topic Meningococcal B Vaccine Aged Out No l onger eligible based on patient's age to complete this topic Meningococcal Vaccine Aged Out No cecil sabino eligible based on patient's age to complete this topic Pneumococcal Vaccine: Pediatrics (0 to 5 Years) and At-Risk Patients (6 to 49) Years Aged Out No longer eligible b ased on patient's age to complete this topic RSV under 20 months Aged Out No longe r eligible based on patient's age to complete this topic Rotavirus Vaccines Aged Out No longer eligible based on patient's age to complete this topic Insurance [place] [address] LIMITED [facility] FULL
[2025-06-20 22:40] VITALS: BP 111/69; PULSE 62; RESP 17; O2SAT 99
--- NOTE | 2025-06-20 23:01 | ED_ITS ---
HPI - Chest Pain General Chief Complaint: Chest Pain Stated Complaint: chest pain Time Seen by Provider: 06/20/25 22:53 Source: patient, family (Spouse) and aerial photograph interpreter Mode of arrival: ambulatory Limitations: no limitations History of Present Illness ED Provider: DR. Ramírez HPI narrative: 25-year-old male history of pericarditis presented with left-sided chest pain started since last night pain has been constant involving the whole left side of the chest, no radiation, wound the pain is severe patient feels short of breath, otherwise no fever, no chills, reports occasional dry coughing, no hemoptysis, no hematemesis, no fever, no chills. No trauma to the chest, no recent travel, no recent prolonged immobilization, no lower extremity swelling or tenderness. Related Data Home Medications ?Medication ?Instructions ?Recorded ?Confirmed cholecalciferol (vitamin D3) 50 50 mcg PO DAILY mcg (2,000 unit) tablet (Vitamin D3) Previous Rx's ?Medication ?Instructions ?Recorded colchicine 0.6 mg tablet (Colcrys) 0.6 mg PO BID #60 t abs 05/08/23 ibuprofen 800 mg tablet 800 mg PO Q8H #41 tabs 05/08 Allergies Allergy/AdvReac Type Severity Reaction Status Date / Time No Known Allergies Allergy Verified 06/20/25 20:23 Review of Systems 2 Review of Systems: All other systems are reviewed and are negative Constitutional: Reports as per HPI and Reports no additional constitutional complaints Eyes: Reports as per HPI and Reports no additional eye complaints Reports system reviewed and no additional complaints, except as documented Cardiovascular: Reports as per HPI and Reports no additional cardiovascular complaints Respiratory: Reports as per HPI and Reports no additional respiratory complaints Gastrointestinal: Reports as per HPI and Reports no additional gastrointestinal complaints Genitourinary: Reports no additional female genitourinary complaints Musculoskeletal: Reports no additional musculoskeletal complaints Skin/Breast: Reports system reviewed and no additional complaints, except as docu Psychiatric: Reports no additional psychiatric complaints Endocrine: Reports no additional endocrine complaints Hematologic/Lymphatic: Reports no additional hematologic/lymphatic complaints Allergic/Immunologic: Reports no additional allergic/immunologic complaints Reports system reviewed and no additional complaints, except as documented and Reports Abnormal speech present PMFSH Past Medical History Medical History Pericarditis Abnormal EKG Surgical History History of left above knee amputation (~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 Father No problems noted. Social History Social History Household Members: Spouse Housing: Apartment Do you presently have visiting nurse or other home services: No Alcohol intake: never Patient Tobacco Use Status: Never used Tobacco Smoked in Last 30 Days: No Use of substances other than those prescribed or required for medical reasons: No Advance Directives: No Advance Directives Information Provided: Yes service: No Physical Exam 2 Vital Signs: Vital Signs: Last Vital Signs Temp 97.8 F 06/20/25 20:17 Pulse 62 06/20/25 22:40 Resp 17 06/20/25 22:40 BP 111/69 06/20/25 22:40 Pulse Ox 99 06/20/25 22:40 O2 Del Method Room Air 06/20/25 22:40 BMI result Body Mass Index 21.3 Vital signs have been reviewed and appear to be correct. Blood pressure elevated. Heart rate normal. Respiratory rate normal. Temperature normal. Oxygen saturation normal. Appearance: Alert. Oriented X3. No acute distress. Head: Normal external exam. Normocephalic. Atraumatic. No Rodriguez signs noted. No raccoon eyes noted Eyes: PERRLA. EOMI. Conjunctiva and sclera normal. Eyelids normal. ENT: TM's Normal. Pharynx normal. Uvula midline. Moist mucous membranes. No trismus noted. No drooling noted. No muffled voice noted. Neck: Normal inspection. Neck supple. FROM. No adenopathy. Thyroid Normal. No meningeal signs. No neck mass noted. CVS: Normal heart rate and rhythm. Heart sound normal. No murmurs noted. Pulses normal throughout. Respiratory: No respiratory distress. Painless inspiration. Breath sounds normal. No wheezes/rales/rhonchi noted. Reproducible left-sided chest wall tenderness, no step-off, no deformity. No accessory muscle usage noted or decreased air movement noted. Abdomen: Soft and nontender. Bowel sounds normal in all 4 quadrants. No distention noted. No organomegaly noted. No visible injury noted. Back: No CVA tenderness. Full range of motion noted. Skin: Skin warm and dry. Normal skin color. Normal skin turgor. No rashes/lesions/lacerations noted. Extremities: No lower extremity edema. Extremities exhibit normal range of motion. Extremities nontender. Neuro: Oriented X 3. Cranial nerve exam: II-XII are grossly intact No motor deficit. No sensory deficit. Reflexes normal. Course Reevaluation(s) Reevaluation #1: Chest wall pain, unremarkable EKG for pericarditis or ACS, unremarkable troponin x2, negative D-dimer with low risk for pulmonary embolism, reproducible chest wall tenderness making the likely diagnosis is chest wall pain related. Normal sed rate, slightly elevated CRP. Time: 11:55 Medical Decision Making Differential Diagnosis Differential Diagnoses: The differential diagnosis associated with the presentation includes (ACS, pericarditis, pulmonary embolism, pneumonia, pneumothorax, pleural effusion, electrolyte derangement, severe anemia.) Admission/Observation Consideration of admission/observation: Escalation of care including admission/observation considered Lab Data MDM Lab Attestation statement: I reviewed the patient's lab results. 06/20/25 20:43 06/20/25 20:43 Labs: Lab Results 06/20/25 06/20/25 Range/Units 20:43 22:47 WBC 9.6 (4.8-10.8) X10*3/uL RBC 4.98 (4.60-5.80) X10*6/uL Hgb 14.5 (14.0-18.0) g/dl Hct 41.3 L (42.0-52.0) % MCV 82.9 (80.0-98.0) fL MCH 29.1 (27.0-33.0) pg MCHC 35.1 (31.0-36.0) g/dl RDW 13.3 (11.0-16.0) % Plt Count 205 (160-400) X10*3/uL MPV 11.0 (9.4-12.4) fL Immature Gran % (Auto) 0.3 (0.0-0.4) % Neut % (Auto) 64.8 (45-73) % Lymph % (Auto) 25.2 (20-40) % Millard % (Auto) 6.8 (2-11) % Eos % (Auto) 2.6 (0-4) % Baso % (Auto) 0.3 (0-2) % Lymph # (Auto) 2.4 (1.2-4.9) X10*3/uL Millard # (Auto) 0.7 (0.1-1.2) X10*3/uL Eos # (Auto) 0.3 (0.0-0.4) X10*3/uL Baso # (Auto) 0.0 (0.0-0.2) X10*3/uL Abs Immat Gran (auto) 0.03 (0.00-0.03) X10*3/uL Absolute Neuts (auto) 6.2 (2.0-8.3) x10*3/uL Absolute Nucleated RBC 0.000 (0.0-0.012) X10*3/uL Nucleated RBC % (auto) 0.0 (0.0-0.2) /100WBC ESR 3 (0-15) MM/HR D-Dimer High Sensitivty < 150 NG/ML Sodium 142 (135-145) mmol/L Potassium 4.2 (3.3-5.1) mmol/L Chloride 110 H (96-108) mmol/L Carbon Dioxide 26 (22-29) mmol/L Anion Gap 10 L (12-20) BUN 7 L (9-16) mg/dL Creatinine 0.79 (0.5-1.4) mg/dL Estim Creat Clear Calc 132.4 Estimated GFR > 60 Random Glucose 125 H (60-115) mg/dL Calcium 8.7 D (8.4-10.2) mg/dL Total Bilirubin 0.3 (0.0-1.0) mg/dL AST 21 (5-37) U/L ALT 13 (0-40) U/L Alkaline Phosphatase 71 (39-117) U/L Troponin I High Sens < 2.7 < 2.7 (<3.5-35.0) ng/L C-Reactive Protein 0.71 H (< or = 0.50) mg/dL NT-Pro-B Natriuret Pep 23.0 (<300) pg/mL Total Protein 7.4 (6.5-8.0) g/dL Albumin 4.4 (3.5-5.0) g/dL Influenza Type A (PCR) NEGATIVE (Negative) Influenza Type B (PCR) NEGATIVE (Negative) RSV RNA Qual (PCR) NEGATIVE (Negative) SARS-CoV-2 RNA (RT-PCR) NEGATIVE (Negative) Independent Interpretation I performed an independent interpretation of an: EKG (Normal sinus rhythm at 77 beats per minute, incomplete RBBB, no ST-T changes) and Plain X-Ray (Chest: No acute intrathoracic pathology.) Radiology Impression Discussion of test interpretation with radiology: I have reviewed the radiologist's reading. Discharge Plan Discharge Clinical Impression: Costalchondritis Instructions: Costochondritis (ED) Prescriptions: No Action ibuprofen 800 mg Tablet 800 mg PO Q8H Qty: 41 0RF Rx Instructions: Take it for 2 weeks colchicine [Colcrys] 0.6 mg Tablet 0.6 mg PO BID Qty: 60 5RF cholecalciferol (vitamin D3) [Vitamin D3] 50 mcg (2,000 unit) tablet 50 mcg PO DAILY Print Language: Indonesian
[2025-06-20 23:07] LABS: D Dimer High Sensitivity < 150 NG/ML
[2025-06-20 23:11] LABS: Troponin-I High Sensitivity < 2.7 ng/L (<3.5-35.0)
[2025-06-20 23:50] VITALS: BP 113/74; PULSE 58; RESP 15; TEMP 36.7; O2SAT 99
[2025-06-21 01:54] VITALS: BP 110/68; PULSE 60; RESP 16; TEMP 36.7; O2SAT 99
== END 2025-06-21 01:20 | disposition home or self-care (01) ==
PROVIDERS: Emergency Provider Emergency Medicine
DX: M94.0 Chondrocostal junction syndrome [Tietze] (principal); Z03.818 Encounter for observation for suspected exposure to other biological agents ruled out
CPT/HCPCS: 36415; 71046; 80053; 83880; 84484; 85025; 85379; 85652; 86140; 87637; 99284

== ENCOUNTER → 2025-06-20 21:05 | Outpatient (BNV) | payer SELFPAY | PROVIDERS: Visit Provider Radiology Diagnostic Radiology | DX: R07.89 Other chest pain (principal); R05.9 Cough, unspecified; R06.02 Shortness of breath | CPT/HCPCS: 71046 ==

== ENCOUNTER 2025-09-04 10:56 | Emergency (ER) | payer SELFPAY ==
--- NOTE | ~2025-09-04 | XR_ITS ---
EXAMINATION: XR CHEST CLINICAL INFORMATION: cough, fever COMPARISON: Previous chest x-rays most recent June 2025 TECHNIQUE: 2 views of the chest were obtained. FINDINGS: No significant abnormality is noted involving the heart, lungs, mediastinum, bony thorax or soft tissues. XR/XR chest 2V IMPRESSION: Unremarkable examination. Electronically signed by: Autumn Louise MD 09/04/2025 11:55 AM [facility] [place]
--- NOTE | 2025-09-04 11:29 | ED_ITS ---
HPI - Fever General Chief Complaint: Upper Respiratory Symptoms Stated Complaint: fever, vomiting Time Seen by Provider: 09/04/25 11:30 Source: patient, old records reviewed and bilingual interpreter Mode of arrival: ambulatory Limitations: no limitations History of Present Illness ED Provider: TANYA DAVIS Narrative: 25-year-old male with history of pericarditis back in 2022 he presents with onset of fever yesterday was not able to check it but states he felt hot. He also has a cough. He does have some chest pain with cough. He does not have any pain in the chest wall leaning forward. He has no nausea, vomiting, diarrhea. He denies any sore throat. Denies any recent travel or sick contacts. He has not taken any medications today for the symptoms. But he did start Tylenol he has had symptoms for 2 days MD elicited complaint: fever, malaise, weakness and other Pertinent past history: other Onset (ago): day(s) (2) Context: other(s) with similar symptoms Exacerbating factors: nothing Relieving factors: nothing Associated symptoms: chills, myalgias, cough, chest pain and shortness of breath Treatments prior to arrival fever: none Related Data Home Medications ?Medication ?Instructions ?Recorded ?Confirmed cholecalciferol (vitamin D3) 50 50 mcg PO DAILY mcg (2,000 unit) tablet (Vitamin D3) Previous Rx's ?Medication ?Instructions ?Recorded colchicine 0.6 mg tablet (Colcrys) 0.6 mg PO BID #60 t abs 05/08/23 ibuprofen 800 mg tablet 800 mg PO Q8H #41 tabs 05/08 ibuprofen 600 mg tablet 600 mg PO Q8H PRN fever or p ain 09/04/25 #21 tabs oseltamivir 75 mg capsule (Tamiflu) 75 mg PO BID 5 day s #10 caps 09/04/25 Allergies Allergy/AdvReac Type Severity Reaction Status Date / Time No Known Allergies Allergy Verified 09/04/25 11:31 Review of Systems 2 Review of Systems: Constitutional : No Weight loss, pos Fever, No Chills ENT/Mouth : No sore throat, No Rhinorrhea Eyes: No Eye Pain, No Swelling Cardiovascular : pos Chest Pain, pos SOB, no Dyspnea on Exertion, No Orthopnea, No Edema, No Palpitations Respiratory : No Cough, No Sputum Gastrointestinal : pos Nausea, No Vomiting, No Diarrhea, No abdominal Pain, No Hematochezia, No Melena Genitourinary : No Dysuria, No Urinary Frequency Musculoskeletal : No joint pain, No Myalgias, No Joint Swelling Skin : No Skin Lesions, No rash Neuro : No Weakness, No Numbness, No Dizziness, No Headache All other systems reviewed and are negative [facility] [place] Past Medical History Attestation statement: The following information was validated with the patient. Source: old records reviewed Medical History Pericarditis Abnormal EKG Surgical History History of left above knee amputation (~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 Father No problems noted. Social History Social History Household Members: Spouse Housing: Apartment Do you presently have visiting nurse or other home services: No Alcohol intake: never Patient Tobacco Use Status: Never used Tobacco Advance Directives: No Advance Directives Information Provided: Yes service: No Physical Exam 2 Vital Signs: Vital Signs: Last Vital Signs Temp 100 F 09/04/25 11:30 Pulse 111 H 09/04/25 11:30 Resp 16 09/04/25 11:30 BP 130/75 09/04/25 11:30 Pulse Ox 96 09/04/25 11:30 O2 Del Method Room Air 09/04/25 11:30 BMI result Body Mass Index 20.8 Appearance: Alert. Oriented X3. No acute distress. Eyes: Pupils equal, round and reactive to light. ENT: Pharynx normal. Neck: Normal inspection. Neck supple. CVS: Normal heart rate and rhythm. Pulses normal. Respiratory: No respiratory distress. Breath sounds normal. Abdomen: Soft and nontender. Skin: Skin warm and dry. Normal skin color. Normal skin turgor. Extremities: No lower extremity edema. No calf ttp Neuro: Oriented X 3. No motor deficit. No sensory deficit. CN2-12 intact Course Reevaluation(s) Reevaluation #1: Patient is seen here for URI symptoms. Patient is positive flu. Patient's symptoms started yesterday. Patient's CRP is 3 which is lower than when patient tested positive for pericarditis. Case discussed with Dr. Rueda recommends patient be discharged with NSAIDs. Not suspecting myocarditis, PE, hypoxia, pneumonia, or any other life-threatening etiology. Patient to be discharged with Tamiflu. Due to pmh of pericarditis will discharge on motrin 600 as per uptodate. Time: 15:00 Medications Administered Discontinued Medications Generic Name Dose Route Start Last Admin Trade Name Santana PRN Reason Stop Dose Admin Acetaminophen 975 mg 09/04/25 11:34 09/04/25 11:35 Acetaminophen 325 Mg Tablet PO 09/04/25 11:35 975 mg ONCE ONE Administration Medical Decision Making Medical Decision Making [facility] Narrative: 25-year-old male with history of pericarditis back in 2022 now here with fever for 2 days unknown temp check. He also has associated cough, chest pain with cough. He is overall nontoxic appearing and he is not hypoxic on arrival. At this time his symptoms do not seem consistent with pericarditis as he notes no pain leaning forward. I am going to obtain a chest x-ray, viral panel and EKG. He will be given Tylenol in the ED. Differential Diagnosis Differential Diagnoses: The differential diagnosis associated with the presentation includes Viral syndrome, bronchitis, pneumonia, less likely pericarditis Admission/Observation Consideration of admission/observation: Escalation of care including admission/observation considered Lab Data [facility] Lab Attestation statement: I reviewed the patient's lab results. 09/04/25 12:06 09/04/25 12:06 Labs: Lab Results 09/04/25 Range/Units 12:06 WBC 8.7 (4.8-10.8) X10*3/uL RBC 5.13 (4.60-5.80) X10*6/uL Hgb 14.5 (14.0-18.0) g/dl Hct 42.7 (42.0-52.0) % MCV 83.2 (80.0-98.0) fL MCH 28.3 (27.0-33.0) pg MCHC 34.0 (31.0-36.0) g/dl RDW 13.0 (11.0-16.0) % Plt Count 210 (160-400) X10*3/uL MPV 10.5 (9.4-12.4) fL Immature Gran % (Auto) 0.5 H (0.0-0.4) % Neut % (Auto) 88.2 H (45-73) % Lymph % (Auto) 3.9 L (20-40) % Bradford % (Auto) 5.9 (2-11) % Eos % (Auto) 1.0 (0-4) % Baso % (Auto) 0.5 (0-2) % Lymph # (Auto) 0.3 L (1.2-4.9) X10*3/uL [place] # (Auto) 0.5 (0.1-1.2) X10*3/uL Eos # (Auto) 0.1 (0.0-0.4) X10*3/uL Baso # (Auto) 0.0 (0.0-0.2) X10*3/uL Abs Immat Gran (auto) 0.04 H (0.00-0.03) X10*3/uL Absolute Neuts (auto) 7.7 (2.0-8.3) x10*3/uL Absolute Nucleated RBC 0.000 (0.0-0.012) X10*3/uL Nucleated RBC % (auto) 0.0 (0.0-0.2) /100WBC Sodium 138 (135-145) mmol/L Potassium 3.8 (3.3-5.1) mmol/L Chloride 102 (96-108) mmol/L Carbon Dioxide 26 (22-29) mmol/L Anion Gap 14 (12-20) BUN 14 (9-16) mg/dL Creatinine 0.83 (0.5-1.4) mg/dL Estim Creat Clear Calc 123.2 Estimated GFR > 60 Random Glucose 99 (60-115) mg/dL Calcium 9.2 (8.4-10.2) mg/dL Troponin I High Sens < 2.7 (<3.5-35.0) ng/L C-Reactive Protein 3.06 H (< or = 0.50) mg/dL Influenza Type A (PCR) POSITIVE A (Negative) Influenza Type B (PCR) NEGATIVE (Negative) RSV RNA Qual (PCR) NEGATIVE (Negative) SARS-CoV-2 RNA (RT-PCR) NEGATIVE (Negative) Independent Interpretation I performed an independent interpretation of an: EKG and Plain X-Ray (normal ) Interpretation: Rate: 105 Rhythm: sinus tach [place]: normal Normal P waves. Normal [place]. Normal QRS complex. ST T wave : no MADELEINE, inverted t waves in avL qTC: 401 prior studies: similar to prior The study has been interpreted contemporaneously by me. . Radiology Impression Discussion of test interpretation with radiology: I have reviewed the radiologist's reading. External Record Review External record reviewed: Outpatient record Prescription Management I considered prescription management with: Other Discharge Plan Discharge Clinical Impression: Influenza Patient Disposition: Home, Self-Care Instructions: Influenza (ED) Additional Instructions: You tested positive for influenza. Recommend follow up with primary care provider. Return to the ED immediately for any chest pain, shortness of breath, weakness, dizziness, chest pain on inspiration, leg swelling, intractable fever, rash, or any other concerning symptoms. Prescriptions: New oseltamivir [Tamiflu] 75 mg capsule 75 mg PO BID 5 Days Qty: 10 0RF ibuprofen 600 mg tablet 600 mg PO Q8H PRN (Reason: fever or pain) Qty: 21 0RF No Action ibuprofen 800 mg Tablet 800 mg PO Q8H Qty: 41 0RF Rx Instructions: Take it for 2 weeks colchicine [Colcrys] 0.6 mg Tablet 0.6 mg PO BID Qty: 60 5RF cholecalciferol (vitamin D3) [Vitamin D3] 50 mcg (2,000 unit) tablet 50 mcg PO DAILY Stand Alone Forms: Work/School Release Discharge Date/Time: 09/04/25 13:57 Print Language: Indian
[2025-09-04 11:30] VITALS: BP 130/75; PULSE 111; RESP 16; TEMP 37.7; O2SAT 96; BMI 20.8
--- NOTE | 2025-09-04 11:31 | ECG_ITS ---
Test Reason : chest pain Blood Pressure : */* mmHG Vent. Rate : 105 BPM Atrial Rate : 105 BPM P-R Int : 120 ms QRS Dur : 92 ms QT Int : 304 ms P-R-T Axes : 64 59 75 degrees QTcB Int : 401 ms Sinus tachycardia Otherwise normal ECG When compared with ECG of 23-Mar-2024 18:32, No significant change was found Referred By: Aidee Lopez Electronically Signed By: Venkatesh Grubbs
[2025-09-04 12:11] LABS: MANUAL DIFF FLAG NO
[2025-09-04 12:14] LABS: Hematocrit 42.7 % (42.0-52.0); Hemoglobin 14.5 g/dl (14.0-18.0); Imm Gran Abs Auto 0.04 X10*3/uL (0.00-0.03); Imm Gran Pct Auto 0.5 % (0.0-0.4); Lymphocytes Absolute Auto 0.3 X10*3/uL (1.2-4.9); Mean Corpuscular HGB Conc 34.0 g/dl (31.0-36.0); Mean Corpuscular Hemoglobin 28.3 pg (27.0-33.0); Mean Corpuscular Volume 83.2 fL (80.0-98.0); NRBC Abs Auto 0.000 X10*3/uL (0.0-0.012); NRBC Pct Auto 0.0 /100WBC (0.0-0.2); Platelet Count 210 X10*3/uL (160-400); Red Blood Count 5.13 X10*6/uL (4.60-5.80); White Blood Count 8.7 X10*3/uL (4.8-10.8)
[2025-09-04 12:30] LABS: Anion Gap 14 (12-20); Blood Urea Nitrogen 14 mg/dL (9-16); Calcium 9.2 mg/dL (8.4-10.2); Carbon Dioxide 26 mmol/L (22-29); Chloride 102 mmol/L (96-108); Creatinine Clr Calc Pharmacy 123.2; Estimated Glomerular Filt Rate > 60; Potassium 3.8 mmol/L (3.3-5.1); Sodium 138 mmol/L (135-145)
[2025-09-04 12:40] LABS: Troponin-I High Sensitivity < 2.7 ng/L (<3.5-35.0)
[2025-09-04 12:48] LABS: Resp Syncy Virus RNA Qual PCR NEGATIVE (Negative); SARS COV2 PCR INHOUSE NEGATIVE (Negative)
== END 2025-09-04 13:57 | disposition home or self-care (01) ==
PROVIDERS: Emergency Provider Emergency Medicine
DX: J10.1 Influenza due to other identified influenza virus with other respiratory manifestations (principal); R50.9 Fever, unspecified; R11.10 Vomiting, unspecified; R05.9 Cough, unspecified; Z03.818 Encounter for observation for suspected exposure to other biological agents ruled out
CPT/HCPCS: 71046; 80048; 84484; 85025; 86140; 87637; 93005; 99283

== ENCOUNTER → 2025-09-04 11:31 | Outpatient (BNV) | payer SELFPAY | PROVIDERS: Emergency Provider Emergency Medicine; Visit Provider Radiology Diagnostic Radiology | DX: R05.9 Cough, unspecified (principal); R50.9 Fever, unspecified | CPT/HCPCS: 71046 ==

== ENCOUNTER → 2025-09-04 11:31 | Outpatient (BNV) | payer SELFPAY | PROVIDERS: Emergency Provider Emergency Medicine; Visit Provider Internal Medicine Cardiovascular Disease | DX: R00.0 Tachycardia, unspecified (principal) | CPT/HCPCS: 93010 ==